=== PATIENT | male | born 1930 | race Caucasian/White ===

== ENCOUNTER 2017-05-18 19:14 | Inpatient (IN) | payer OTHER ==
[~2017-05-18] VITALS: Ht 175.3 cm; Wt 78.6 kg
--- NOTE | ~2017-05-18 | HC ---
[facility] [place] [address] CONSULTATION Name: LILLIE VALDES Room #: 202-P [facility] IN M.R.#: [id number] Admission: 05/18/17 Attend Phys: Yobany Hensley MD Discharge: 05/25/17 Date of : 31 Report #: [id number] THIS REPORT FOR: //name// CC: Yobany BRICE DATE OF SERVICE: 05/24/2017 HISTORY OF PRESENT ILLNESS: The patient is an 86-year-old white male who was originally admitted with shortness of breath, had been diagnosed with pneumonia few weeks ago. He was noted to have sepsis with hyponatremia and also had a right pleural effusion. Pulmonary medicine has been involved and he underwent a thoracentesis on the right on 05/21/2017. He has been monitored regarding atrial fibrillation with rapid ventricular rate. He also was noted to have a delirium/encephalopathy multifactorial with toxic metabolic with his sepsis complicated likely by prior history of ETOH use/abuse. He has been monitored in that regard placed on thiamine and vitamins. The patient has had a considerable decline in his overall functional abilities and we are seeing him in rehabilitation medicine consultation. PAST MEDICAL HISTORY: Includes a prior left total hip replacement about 5 years ago, history of left knee repair, essential tremor. He has had a past cholecystectomy, history of hyperlipidemia. PAST SURGICAL HISTORY: As noted above. HABITS: Alcohol 3 to 6 beers per day, tobacco 7-8 cigarettes per day, smoked apparently for 65 years every day smoker. ALLERGIES: No known drug allergies. SOCIAL HISTORY: Lives with his significant other in a house, 2 steps in. There were 15 inside. There is an involved daughter. He was premorbidly independent, ambulatory without gait aids and was driving. REVIEW OF SYSTEMS: Did not offer any complaints of chest pain. He does have some shortness of breath. Denies that he was on oxygen premorbidly. No abdominal pain. No focal extremity pain complaints. Did not complain of any headache. PHYSICAL EXAMINATION: GENERAL: He is an 86-year-old white male with an essential tremor and some overall tremulousness. VITAL SIGNS: His temperature is 98.4, pulse 70, respirations are 20, blood pressure 150/96. NEUROLOGIC: He is alert. He could tell me the name of the hospital. He knew [address] [address] CONSULTATION Name: LILLIE VALDES Room #: 202-P [facility] IN M.R.#: [id number] Admission: 05/18/17 Attend Phys: Yobany Hensley MD Discharge: 05/25/17 Date of : 31 Report #: [id number] the month, but he could not name the year. Serial 7's were fair. He can follow basic 1 step commands. EXTREMITIES: He has functional range of motion of both upper extremities. Strength is grade 4-/5. DTRs are trace to 1. Lower extremities, no focal calf swelling, functional range of motion with strength grade 3+/5. DTRs are trace to 1. He was max assist sit to stand. Gait was max assist to take a couple of steps to the chair. He has decreased balance with retropulsion. ASSESSMENT: An 86-year-old white male with the following problems: 1. Toxic metabolic encephalopathy/delirium. 2. Sepsis. 3. Pneumonia with pleural effusion, status post thoracentesis 05/21/2017 on the right. He had a prior recent 1600 mL thoracentesis. 4. History of atrial fibrillation with rapid ventricular rate with cardiology involved. 5. ETOH usage/abuse. Being monitored regarding possible alcohol withdrawal. 6. Tobacco abuse. 7. Essential tremor. PLAN: Would anticipate that the patient should be a good acute in-hospital inpatient rehabilitation candidate as he further medically stabilizes. At this point, we will continue to follow along with you regarding his rehab therapy needs. <ELECTRONICALLY SIGNED> By: Fausto Martini MD 05/28/17 1509 0934 1408 Fausto Martini MD /[facility]
--- NOTE | ~2017-05-18 | HC ---
[facility] [place] [address] CONSULTATION Name: LILLIE VALDES Room #: 202-P ADM IN M.R.#: [id number] Admission: 05/18/17 Attend Phys: Yobany Hensley MD Discharge: Date of : 31 Report #: [id number] THIS REPORT FOR: //name// CC: Chun CHEW DATE OF SERVICE: 05/20/2017 REFERRING PROVIDER: Chun Ariza MD. PRIMARY CARE PROVIDER: Dr. Chew. REASON FOR CONSULTATION: Pneumonia and tachypnea. HISTORY OF PRESENT ILLNESS: Our group was asked to see the patient today in consultation while hospitalized at [facility]. A pleasant 86-year-old male with a past pulmonary history significant for tobacco use, had been having some cough productive of green sputum, was seen by his primary care provider, he said about 2-3 weeks ago. He stated his primary care provider told him he did not like his chest x-ray, placed him on an antibiotic for 5 days. The patient noted improvement. Over the last few days, he noted some increased right lower pleuritic chest pain and again had some green sputum, no fevers or chills. No hemoptysis. He presented to the Emergency Department, was noted to have a right lower lobe infiltrate and was started on broad spectrum antimicrobial therapy. The patient developed atrial fibrillation with rapid ventricular response, prompting cardiology consultation overnight, and he was transferred to critical care telemetry. The patient was noted to be tachypneic, and we were asked to evaluate further. The patient notes reasonably comfortable, notes some only minimal improvement since initiating therapy from admission. Currently, he has been on DuoNebs q.6 hours, in addition to antibiotic therapy. The patient does have an active tobacco history. The patient currently lives significant other with normal pulmonary limitations and not on any pulmonary medications. No prior other pulmonary diagnoses. ALLERGIES: None known. PAST MEDICAL HISTORY: 1. Tobacco abuse. 2. History of peripheral vascular disease, status post aneurysmal repair, right lower extremity. 3. Hyperlipidemia. 4. Prior total hip replacement on left. 5. History of cholecystectomy. [facility] [address] [place] [address] CONSULTATION Name: LILLIE VALDES Room #: 202-P ADM IN M.R.#: [id number] Admission: 05/18/17 Attend Phys: Yobany Hensley MD Discharge: Date of : 31 Report #: [id number] OUTPATIENT MEDICATIONS: Include aspirin, ibuprofen, Tylenol. SOCIAL HISTORY: Active smoker for over 60 years. Currently retired. Lives with significant other. With regular daily alcohol consumption. No recent travel. FAMILY HISTORY: Noncontributory due to his advanced age. REVIEW OF SYSTEMS: CONSTITUTIONAL: No fevers, chills, sweats. Denies any change in weight or appetite. ENT: No upper respiratory congestion or dysphagia. CARDIOVASCULAR: Does not know palpitation, was currently in atrial fibrillation. GASTROINTESTINAL: No nausea, vomiting, diarrhea, constipation or abdominal pain. GENITOURINARY: No dysuria, no frequency, hematuria. INTEGUMENT: Denies any rash. MUSCULOSKELETAL: No joint pains or swelling. Some right lower extremity weakness. PHYSICAL EXAMINATION: VITAL SIGNS: He is afebrile, pulse 150 and irregular, respiratory rate 20, blood pressure 129/82, oxygen saturation 96% on 4 liters nasal cannula. GENERAL: This is a pleasant elderly male, does not appear in any distress. HEENT: Clear oropharynx. No thrush. No erythema. NECK: Supple, no lymphadenopathy. LUNGS: Markedly diminished right base, with only occasional wheeze on expiration. HEART: Tachycardic and irregular. No murmurs noted. ABDOMEN: Soft, nontender, no masses, no hepatosplenomegaly. EXTREMITIES: Warm, 2+ pulses, no edema. INTEGUMENT: No rash. LABORATORY DATA: White blood cell count 17,000, hemoglobin 11, hematocrit 32, platelet count 227, 0 band forms. Sodium 135, potassium 3.5, chloride 102, bicarbonate 24, BUN 9, creatinine 0.9, glucose 133. Liver enzymes normal. I do not see a rapid influenza screen. IMPRESSION: 1. Right lower lobe infiltrate, most consistent with community-acquired pneumonia, failing outpatient therapy. Given his lack of improvement, would also be concerned about possible parapneumonic effusion given pleuritic symptoms or underlying malignant process should also be considered if not improving. 2. Atrial fibrillation with rapid ventricular response. 3. Tobacco abuse. [address] [address] CONSULTATION Name: LILLIE VALDES Room #: 202-P ADM IN M.R.#: [id number] Admission: 05/18/17 Attend Phys: Yobany Hensley MD Discharge: Date of : 31 Report #: [id number] 4. Acute hypoxemic respiratory failure. SUGGESTIONS: 1. Follow up chest x-ray, CT scan if the infiltrate not improving or signs of pleural effusion. 2. Change bronchodilators to levalbuterol and ipratropium given his AFib with rapid ventricular response. 3. Add some systemic steroids. 4. Check nasal swab for respiratory viral panel. 5. Sputum and blood cultures are pending. 6. Urinary pneumococcal legionella antigen testing. 7. Additional recommendations to follow. Discussed at length with the patient and son and nursing who are all at bedside during my evaluation. <ELECTRONICALLY SIGNED> By: Ovidio Ryan MD 05/25/17 1726 1519 0534 Ovidio Ryna MD /nt
--- NOTE | ~2017-05-18 | CNG ---
[facility] [place] [address] CYTO-NONGYN REPORT PROCEDURE Name: LILLIE VALDES Room #: 202-P ADM IN M.R.#: [id number] Admission: 05/18/17 Date of : 31 Discharge: Report #: [id number] Path Case #: [id number] CYTOPATHOLOGY REPORT COLLECTION DATE: 05/21/2017 RECEIVED DATE: 05/22/2017 SUBMITTING PHYS: Dr. Ovidio Ryan OTHER PHYS: Dr. Yobany Hensley CLINICAL HISTORY: SOA; sepsis, CAP SPECIMEN(S) RECEIVED: A.Pleural fluid, Right * * * * * * * * * * * * FINAL DIAGNOSIS: A. Pleural fluid, Right: - No malignant cells identified. -Rare mesothelial cells identified in a background of marked acute inflammation. PATHOLOGIST: Tony Vaca M.D. REPORT ELECTRONICALLY SIGNED BY: Tony Vaca M.D. DATE/TIME: 05/23/2017 10:23 * * * * * * * * * * * * GROSS PATHOLOGY: A. Pleural fluid, Right: The specimen is submitted unfixed, labeled "Lillie Valdes". Received by the Cytology Department is 15 mL of cleay yellow fluid. One ThinPrep slide and a formalin fixed cell block were prepared. (mm 05.22.2017) COMMERCIAL ILLUSTRATOR(S): DILAN Chandler([facility]) INITIAL CPT CODE(S): A; 99920, 34954 Professional services performed by [facility] at [facility] [address], [place] [address] Technical services performed by [facility] at [address] [place] [address]., [address], [place] [address]. [facility] [address] [place] [address], [facility] [address] [place] [address] PHONE: [phone] [facility] [address] [place] [address] CYTO-NONGYN REPORT PROCEDURE Name: LILLIE VALDES Room #: 202-P ADM IN M.R.#: [id number] Admission: 05/18/17 Date of : 31 Discharge: Report #: [id number] Path Case #: [id number] DIRECTOR: Edgar Mckeon M.D. * * * END OF REPORT * * *
--- NOTE | ~2017-05-18 | CNG ---
[facility] [place] [address] CYTO-NONGYN REPORT PROCEDURE Name: LILLIE VALDES Room #: 202-P ADM IN M.R.#: [id number] Admission: 05/18/17 Date of : 31 Discharge: Report #: [id number] Path Case #: [id number] CYTOPATHOLOGY REPORT COLLECTION DATE: 05/24/2017 RECEIVED DATE: 05/24/2017 SUBMITTING PHYS: Dr. Yobany Hensley OTHER PHYS: Dr. Ovidio Ryan CLINICAL HISTORY: Sepsis; PNA/CAP SPECIMEN(S) RECEIVED: A.Pleural fluid * * * * * * * * * * * * FINAL DIAGNOSIS: A. Pleural fluid: - No malignant epithelial cells identified. Normal and highly reactive mesothelial cells present amongst background acute and chronic inflammatory cells. PATHOLOGIST: Sheba Schaffer M.D. REPORT ELECTRONICALLY SIGNED BY: Sheba Schaffer M.D. DATE/TIME: 05/25/2017 14:17 * * * * * * * * * * * * GROSS PATHOLOGY: A. Pleural fluid: The specimen is submitted unfixed, labeled "Lillie Valdes". Received by the Cytology Department is 18 mL of cloudy orange fluid. One ThinPrep slide and a formalin fixed cell block were prepared. (lg.) CONSULTING ACTUARY(S): DILAN Milton([facility]) INITIAL CPT CODE(S): A; 24654, 51339 Professional services performed by [facility] at [facility] [address], [place] [address] Technical services performed by [facility] at [address] [place] [address]., [address], [place] [address]. JANY BRICE [facility] [address] [place] [address], [address] [place], [place] [address] [place] [address] [place] [address] CYTO-NONGYN REPORT PROCEDURE Name: LILLIE VALDES Room #: 202-P ADM IN M.R.#: [id number] Admission: 05/18/17 Date of : 31 Discharge: Report #: [id number] Path Case #: [id number] PHONE: [phone] DIRECTOR: Edgar Mckeon M.D. * * * END OF REPORT * * *
--- NOTE | ~2017-05-18 | EKG ---
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 05/20/17 1404 D: 12/1920 20 Kurtis Tadeo MD, FACC /EPI
--- NOTE | ~2017-05-18 | EKG ---
[address] [address] ELECTROCARDIOGRAM REPORT Name: LILLIE VALDES Room #: 207-P ADM IN M.R.#: [id number] Admission: 05/18/17 Attend Phys: Yobany Hensley MD Discharge: Date of : 31 Report #: [id number] THIS REPORT FOR: //name// [facility] Test Date: 2017-05-19 Test Time: 22:37:21 Pat Name: LILLIE VALDES Department: Room: 207 Gender: M Dedicated Regional Driver: jessica : 1930 Requested By: Arely Dao Order Number: [id number] MD: Kurtis Tadeo Measurements Intervals [place] Rate: 128 P: [place]: QRS: 37 QRSD: 86 T: 56 QT: 307 QTc: 448 Interpretive Statements Atrial fibrillation Low voltage, extremity leads No previous ECG available for comparison Electronically Signed On 05-20-2017 14:31:59 POLE PEELING MACHINE OPERATOR by Kurtis Tadeo [email or web address] <ELECTRONICALLY SIGNED> By: Kurtis Tadeo MD, [facility] 05/20/17 1431 2237 2237 Kurtis Tadeo MD, FACC /EPI
--- NOTE | ~2017-05-18 | 2DMMODE ---
[facility] [address] [place] [address] 2 D/M-MODE ECHOCARDIOGRAM Name: LILLIE VALDES Room #: 207-P ADM IN M.R.#: [id number] Admission: 05/18/17 Attend Phys: Yobany Hensley, Discharge: Date of : 31 Date of Service: 05/20/17 1604 Report #: [id number] THIS REPORT FOR: //name// APPROVED REPORT Study performed: 05/20/2017 15:30:10 EXAM: Comprehensive 2D, Doppler, and color-flow Echocardiogram Patient Location: Bedside Room #: 207 Status: on-call BSA: 1.88 HR: 89 bpm BP: 129/82 mmHg Rhythm: Atrial Fibrillation Other Information Study Quality: Adequate/low parsternal window. Indications AFIB 2D Dimensions RVDd: 33.24 mm LVEF(%): 51.77 (>50%) IVSd: 7.92 (7-11mm) LVOT Diam: 21.20 (18-24mm) LVDd: 40.97 mm PWd: 8.67 (7-11mm) LVDs: 30.26 (25-40mm) Aortic Root: 36.51 mm Barbosa's LVEF: 51.77 % Volumes Left Atrial Volume (Systole) Single Plane 4CH: 44.38 mL Single Plane 2CH: 59.62 mL LA ESV Index: 30.00 mL/m2 Aortic Valve AoV Peak Az.: 1.83 m/s AO Peak Gr.: 13.47 mmHg LVOT Max P.41 mmHg LVOT Max V: 1.05 m/s VIJAY Vmax: 2.02 cm2 Mitral Valve MV Decel. Time: 180.64 ms MV E Max Az.: 1.24 m/s [facility] [place] [address] [place] [address] 2 D/M-MODE ECHOCARDIOGRAM Name: LILLIE VALDES Room #: 207-P [facility] IN .R.#: [id number] Admission: 05/18/17 Attend Phys: Yobany Hensley, Discharge: Date of : 31 Date of Service: 05/20/17 1604 Report #: [id number] Pulmonary Valve PV Peak Az.: 1.61 m/s PV Peak Gr.: 10.42 mmHg Tricuspid Valve TR Peak Az.: 3.00 m/s RAP Estimate: 5.00 mmHg TR Peak Gr.: 36.30 mmHg PA Pressure: 41.00 mmHg Left Ventricle The left ventricle is normal size. There is normal LV segmental wall motion. There is normal left ventricular wall thickness. Left ventricular systolic function is normal. LVEF is 55-60%. This study is not technically sufficient to allow evaluation of the LV diastolic function due to atrial fibrillation. Right Ventricle The right ventricle is normal size. The right ventricular systolic function is normal. Atria The left atrium size is normal. The right atrium size is normal. Aortic Valve The Aortic valve is sclerotic. Mild aortic regurgitation. There is no aortic valvular stenosis. Mitral Valve Mitral valve leaflets are thickened. Trace mitral regurgitation. No evidence of mitral valve stenosis. Tricuspid Valve The tricuspid valve is normal in structure. Mild tricuspid regurgitation. Estimated PAP is 40-45mmHg. Pulmonic Valve The pulmonary valve is normal in structure. Mild pulmonic regurgitation. Great Vessels The aortic root is normal in size. Ascending aorta is not well visualized. IVC is normal in size and collapses >50% with inspiration. Pericardium [facility] [address] [place] [address] 2 D/M-MODE ECHOCARDIOGRAM Name: LILLIE VALDES Room #: 207-P ADM IN M.R.#: [id number] Admission: 05/18/17 Attend Phys: Yobany Hensley, Discharge: Date of : 31 Date of Service: 05/20/17 1604 Report #: [id number] There is no pericardial effusion. <Conclusion> The left ventricle is normal size. LVEF is 55-60%. The left atrium size is normal. The right atrium size is normal. The Aortic valve is sclerotic. Mild aortic regurgitation. Mitral valve leaflets are thickened. Trace mitral regurgitation. The tricuspid valve is normal in structure. Mild tricuspid regurgitation. Estimated PAP is 40-45mmHg. The pulmonary valve is normal in structure. Mild pulmonic regurgitation. There is no pericardial effusion. <ELECTRONICALLY SIGNED> By: Chun Ariza MD 05/20/17 1604 1604 160 Chun Ariza MD /INF
--- NOTE | ~2017-05-18 | EKG ---
[address] [address] ELECTROCARDIOGRAM REPORT Name: LILLIE VALDES Room #: 202-P ADM IN M.R.#: [id number] Admission: 05/18/17 Attend Phys: Yobany Hensley MD Discharge: Date of : 31 Report #: [id number] THIS REPORT FOR: //name// [facility] Test Date: 2017-05-22 Test Time: 06:19:25 Pat Name: LILLIE VALDES Department: Room: 202 P Gender: M Glued Wood Tester: : 1930 Requested By: Arely Dao Order Number: [id number] MD: Bradford Fair Measurements Intervals [place] Rate: 68 P: 23 MS: 218 QRS: 7 QRSD: 87 T: 41 QT: 392 QTc: 417 Interpretive Statements Sinus rhythm Borderline prolonged MS interval Anteroseptal infarct, age indeterminate Compared to ECG 05/19/2017 22:37:21 Myocardial infarct finding now present Atrial fibrillation no longer present Electronically Signed On 05-22-2017 15:29:52 SPRING INTERN by Bradford Fair [email or web address] <ELECTRONICALLY SIGNED> By: Bradford Fair MD 05/22/17 1529 0619 Bradford Fair MD /EPI
[2017-05-18 19:16] VITALS: BP 159/85
[2017-05-18] MEDS ORDERED: IBUPROFEN 200200 M1 PO (19:24)
[2017-05-18] MEDS ORDERED: TYLENOL325 MG PO (19:24)
[2017-05-18 19:41] LABS: HEMATOCRIT 33.1 % (42.0-52.0); HEMOGLOBIN 11.3 gm/dL (14.0-18.0); MCH 29.4 pg (26.0-34.0); MCHC 33.9 g/dL (28.0-37.0); MCV 86.7 fL (80.0-100.0); PLATELET COUNT 271 thou/uL (150-400); RBC 3.82 mil/uL (4.50-6.00); RDW 14.7 % (10.5-14.5); WBC 12.4 thou/uL (4.0-11.0)
[2017-05-18 19:48] LABS: CALCIUM 8.9 mg/dL (8.5-10.1); POTASSIUM 3.9 mmol/L (3.5-5.1)
[2017-05-18 19:53] LABS: ALBUMIN 2.8 g/dL (3.4-5.0); DIRECT BILIRUBIN 0.4 mg/dL (<0.1-0.3); TOTAL PROTEIN 7.4 g/dL (6.4-8.2)
[2017-05-18 20:19] LABS: ABSOLUTE NEUTROPHILS 10.9 thou/uL (1.4-8.2); ANISOCYTOSIS 1+; POLYCHROMASIA OCCASIONAL
[2017-05-18 20:31] VITALS: BP 161/93
[2017-05-18 20:58] VITALS: BP 121/75
[2017-05-18 21:06] VITALS: BP 158/65
[2017-05-18] MEDS ORDERED: ASPIR 8181 MG PO (21:17)
[2017-05-18 23:08] VITALS: BP 104/75
[2017-05-19] VITALS (7 sets, daily range): BP systolic 97–124; BP diastolic 49–69
[2017-05-19 05:59] LABS: HEMATOCRIT 28.7 % (42.0-52.0); HEMOGLOBIN 9.9 gm/dL (14.0-18.0); MCHC 34.5 g/dL (28.0-37.0); MCV 86.9 fL (80.0-100.0); RBC 3.31 mil/uL (4.50-6.00); RDW 14.9 % (10.5-14.5); WBC 11.8 thou/uL (4.0-11.0)
[2017-05-19 06:07] LABS: ALBUMIN 2.1 g/dL (3.4-5.0); CALCIUM 8.1 mg/dL (8.5-10.1); CREATININE 0.8 mg/dL (0.7-1.3); POTASSIUM 4.1 mmol/L (3.5-5.1); TOTAL BILIRUBIN 1.1 mg/dL (<0.1-1.0); TOTAL PROTEIN 5.2 g/dL (6.4-8.2)
[2017-05-19 12:13] LABS: URINE BILIRUBIN NEGATIVE (Negative); URINE BLOOD NEGATIVE (Negative); URINE CLARITY CLEAR; URINE COLOR YELLOW; URINE GLUCOSE-RANDOM* NEGATIVE (Negative); URINE KETONES TRACE (Negative); URINE LEUKOCYTES NEGATIVE (Negative); URINE NITRITE NEGATIVE (Negative); URINE PROTEIN (DIPSTICK) NEGATIVE (Negative); URINE UROBILINOGEN 0.2 E.U./dl (0.2-1.0)
[2017-05-20] VITALS (10 sets, daily range): BP systolic 93–129; BP diastolic 51–82
[2017-05-20 08:27] LABS: HEMATOCRIT 31.8 % (42.0-52.0); HEMOGLOBIN 10.7 gm/dL (14.0-18.0); MCH 29.3 pg (26.0-34.0); MCHC 33.5 g/dL (28.0-37.0); MCV 87.4 fL (80.0-100.0); PLATELET COUNT 227 thou/uL (150-400); RBC 3.64 mil/uL (4.50-6.00); RDW 14.6 % (10.5-14.5); WBC 16.8 thou/uL (4.0-11.0)
[2017-05-20 08:45] LABS: CALCIUM 8.1 mg/dL (8.5-10.1); CREATININE 0.9 mg/dL (0.7-1.3); POTASSIUM 3.5 mmol/L (3.5-5.1)
[2017-05-20 11:30] LABS: ABSOLUTE NEUTROPHILS 15.5 thou/uL (1.4-8.2)
[2017-05-20 11:31] LABS: ANISOCYTOSIS 1+
[2017-05-21 03:17] LABS: HEMATOCRIT 31.3 % (42.0-52.0); HEMOGLOBIN 10.3 gm/dL (14.0-18.0); MCH 28.9 pg (26.0-34.0); MCHC 32.9 g/dL (28.0-37.0); MCV 87.7 fL (80.0-100.0); PLATELET COUNT 256 thou/uL (150-400); RBC 3.56 mil/uL (4.50-6.00); RDW 15.1 % (10.5-14.5)
[2017-05-21 03:24] LABS: CALCIUM 8.3 mg/dL (8.5-10.1); CREATININE 0.9 mg/dL (0.7-1.3); POTASSIUM 3.3 mmol/L (3.5-5.1)
[2017-05-21 04:14] VITALS: BP 118/73
[2017-05-21 05:38] LABS: ABSOLUTE NEUTROPHILS 15.8 thou/uL (1.4-8.2)
[2017-05-21 07:50] VITALS: BP 141/71
[2017-05-21 11:30] VITALS: BP 137/65
[2017-05-21 11:57] LABS: PROTIME 10.5 Seconds (9.3-11.4)
[2017-05-21 14:28] LABS: BF NUCLEATED CELLS 2410; BF RBC 1342
[2017-05-21 14:31] LABS: COLOR YELLOW; TOTAL VOLUME 65 mL
[2017-05-21 14:32] LABS: CLARITY CLOUDY
[2017-05-21 15:10] LABS: BF NEUTROPHILS 72; SOURCE R CHEST
[2017-05-21 15:11] LABS: BF MACROPHAGE 28
[2017-05-21 15:45] VITALS: BP 131/61
[2017-05-21 19:33] VITALS: BP 125/56
[2017-05-22 03:22] LABS: HEMATOCRIT 31.8 % (42.0-52.0); HEMOGLOBIN 10.6 gm/dL (14.0-18.0); MCH 28.9 pg (26.0-34.0); MCHC 33.3 g/dL (28.0-37.0); MCV 86.8 fL (80.0-100.0); PLATELET COUNT 323 thou/uL (150-400); RBC 3.66 mil/uL (4.50-6.00); RDW 14.7 % (10.5-14.5); WBC 20.9 thou/uL (4.0-11.0)
[2017-05-22 03:29] LABS: CALCIUM 8.9 mg/dL (8.5-10.1); CREATININE 1.2 mg/dL (0.7-1.3); POTASSIUM 3.2 mmol/L (3.5-5.1)
[2017-05-22 03:50] LABS: ALBUMIN 2.2 g/dL (3.4-5.0); CALCIUM 8.7 mg/dL (8.5-10.1); CREATININE 1.2 mg/dL (0.7-1.3); MAGNESIUM 2.1 mg/dL (1.8-2.4); PHOSPHORUS 3.2 mg/dL (2.5-4.9); POTASSIUM 3.3 mmol/L (3.5-5.1); TOTAL BILIRUBIN 0.5 mg/dL (<0.1-1.0); TOTAL PROTEIN 6.1 g/dL (6.4-8.2)
[2017-05-22 04:02] VITALS: BP 136/83
[2017-05-22 04:22] LABS: FOLIC ACID 15.9 ng/mL (8.6-58.9)
[2017-05-22 04:55] LABS: ABSOLUTE NEUTROPHILS 18.8 thou/uL (1.4-8.2); ANISOCYTOSIS SLIGHT; HYPOCHROMASIA SLIGHT; LARGE PLATELETS OCCASIONAL
[2017-05-22 11:13] VITALS: BP 123/68
[2017-05-22 15:51] VITALS: BP 132/71
[2017-05-22 19:04] VITALS: BP 132/79
[2017-05-23 03:15] LABS: HEMOGLOBIN 9.9 gm/dL (14.0-18.0); MCHC 32.9 g/dL (28.0-37.0); MCV 87.9 fL (80.0-100.0); PLATELET COUNT 294 thou/uL (150-400); RBC 3.41 mil/uL (4.50-6.00); RDW 15.4 % (10.5-14.5); WBC 13.5 thou/uL (4.0-11.0)
[2017-05-23 03:18] VITALS: BP 132/67
[2017-05-23 03:29] LABS: CALCIUM 8.8 mg/dL (8.5-10.1); CREATININE 1.1 mg/dL (0.7-1.3); POTASSIUM 3.3 mmol/L (3.5-5.1)
[2017-05-23 06:31] LABS: ABSOLUTE NEUTROPHILS 12.7 thou/uL (1.4-8.2); ANISOCYTOSIS SLIGHT
[2017-05-23 07:11] LABS: BODY FLUID ALBUMIN 1.5 g/dL (()); BODY FLUID AMYLASE 12 U/L (()); BODY FLUID GLUCOSE 138 mg/dL (()); BODY FLUID LDH 517 IU/L (()); BODY FLUID PROTEIN 3.3 g/dL (())
[2017-05-23 07:55] VITALS: BP 109/62
[2017-05-23 11:46] VITALS: BP 138/65
[2017-05-23 15:44] VITALS: BP 135/70
[2017-05-23 19:25] VITALS: BP 134/78
[2017-05-24 04:19] VITALS: BP 142/65
[2017-05-24 07:15] VITALS: BP 150/96
[2017-05-24 10:25] LABS: SOURCE CHEST
[2017-05-24 12:03] VITALS: BP 168/90
[2017-05-24 12:15] LABS: CLARITY CLOUDY; COLOR LIGHT AMBER; SOURCE CHEST FLUID; TOTAL VOLUME 60 mL
[2017-05-24 12:36] LABS: BF NUCLEATED CELLS 1525; BF RBC 7263
[2017-05-24 13:37] LABS: BF NEUTROPHILS 72
[2017-05-24 15:40] VITALS: BP 158/92
[2017-05-24 20:25] VITALS: BP 148/84
[2017-05-24 23:09] LABS: ADENOVIRUS Negative (Negative); INFLUENZA A Negative (Negative); INFLUENZA B Negative (Negative); METAPNEUMOVIRUS Negative (Negative); PARAINFLUENZA 1 Negative (Negative); PARAINFLUENZA 2 Negative (Negative); PARAINFLUENZA 3 Negative (Negative); RHINOVIRUS Negative (Negative); RSV A Negative (Negative); RSV B Negative (Negative)
[2017-05-25 02:53] LABS: ABSOLUTE NEUTROPHILS 13.6 thou/uL (1.4-8.2); BASOPHILS 0.3 % (0.0-2.0); HEMATOCRIT 29.6 % (42.0-52.0); HEMOGLOBIN 9.6 gm/dL (14.0-18.0); MCH 28.7 pg (26.0-34.0); MCHC 32.5 g/dL (28.0-37.0); MCV 88.2 fL (80.0-100.0); MONOCYTES 5.2 % (1.0-8.0); PLATELET COUNT 259 thou/uL (150-400); POLYS 90.5 % (36.0-66.0); RBC 3.35 mil/uL (4.50-6.00); RDW 15.4 % (10.5-14.5)
[2017-05-25 03:01] LABS: CALCIUM 8.7 mg/dL (8.5-10.1); POTASSIUM 4.4 mmol/L (3.5-5.1)
[2017-05-25 08:00] VITALS: BP 163/92
[2017-05-25 08:42] LABS: SOURCE CHEST
[2017-05-25 11:10] LABS: BODY FLUID ALBUMIN 0.8 g/dL (()); BODY FLUID AMYLASE 6 U/L (()); BODY FLUID GLUCOSE 150 mg/dL (()); BODY FLUID LDH 437 IU/L (()); BODY FLUID PROTEIN 2.2 g/dL (())
[2017-05-25] MEDS ORDERED: IPRATROPIU0.2 MG/1 M INH (11:35)
[2017-05-25] MEDS ORDERED: LEVALBUTER0.63 MG/3 INH (11:35)
[2017-05-25] MEDS ORDERED: AUGMENTIN 500-1 EACH PO (11:35)
[2017-05-25] MEDS ORDERED: PACERONE 200 M200 M1 PO (11:36)
[2017-05-25] MEDS ORDERED: CARDIZEM CD 18180 M3 PO (11:36)
[2017-05-25] MEDS ORDERED: ENOXAPARIN80 MG/0.1 SUBQ (11:36)
[2017-05-25] MEDS ORDERED: NICOTINE TRANSD14 M1 TRANSDERM (11:36)
[2017-05-25 16:00] VITALS: BP 151/82
== END 2017-05-25 17:35 | DRG 871 ==
LOC: ER 19:14 → EROBS 20:14 → 2N 20:14 → 4S 20:54 → 2N 05-19 23:23
PROVIDERS: Family Medicine; Internal Medicine Pulmonary Disease; Nurse Practitioner; Nurse Practitioner Acute Care
PROC: 0W993ZZ Drainage of Right Pleural Cavity, Percutaneous Approach (ICD-10-PCS; principal; 2017-05-21)
PROC: 0W993ZZ Drainage of Right Pleural Cavity, Percutaneous Approach (ICD-10-PCS; 2017-05-24)
DX: A41.9 Sepsis, unspecified organism (principal); J96.01 Acute respiratory failure with hypoxia; G92 Toxic encephalopathy; J18.1 Lobar pneumonia, unspecified organism; J90 Pleural effusion, not elsewhere classified; E87.1 Hypo-osmolality and hyponatremia; E78.5 Hyperlipidemia, unspecified; Z96.642 Presence of left artificial hip joint; E87.6 Hypokalemia; I73.9 Peripheral vascular disease, unspecified; F17.210 Nicotine dependence, cigarettes, uncomplicated; I48.0 Paroxysmal atrial fibrillation; R41.0 Disorientation, unspecified; G25.0 Essential tremor; Z79.899 Other long term (current) drug therapy; Z79.82 Long term (current) use of aspirin; Z72.89 Other problems related to lifestyle; Z90.49 Acquired absence of other specified parts of digestive tract; Z79.01 Long term (current) use of anticoagulants; Z80.52 Family history of malignant neoplasm of bladder
CPT/HCPCS: 10081; 10100

== ENCOUNTER 2017-05-25 12:05 | Inpatient (IN) | payer OTHER ==
[~2017-05-25] VITALS: Ht 175.3 cm; Wt 76.2 kg
--- NOTE | ~2017-05-25 | H ---
[facility] [place] [address] HISTORY AND PHYSICAL Name: LILLIE VALDES Room #: 511-P ADM IN M.R.#: [id number] Admission: 05/25/17 Attend Phys: Fausto Martini MD Discharge: Date of : 31 Report #: [id number] THIS REPORT FOR: //name// CC: Fausto BRICE DATE OF SERVICE: 05/25/2017 HISTORY OF PRESENT ILLNESS: The patient is an 86-year-old white male who was originally admitted to [facility] with increased shortness of breath. He was diagnosed with pneumonia a few weeks prior. He was noted to have sepsis upon his admission with hyponatremia and also had a right pleural effusion. Pulmonary Medicine has been involved and he underwent a thoracentesis on the right on 05/21/2017. He has been monitored regarding atrial fibrillation with rapid ventricular rate. He was also noted to have encephalopathy with delirium, multifactorial with toxic metabolic with his sepsis, complicated likely by a prior history of alcohol use and abuse. He was monitored in this regard and placed on thiamine and vitamins. He was noted to have a considerable decline in his overall function and has been admitted for an acute in-hospital inpatient rehabilitation stay. PAST MEDICAL HISTORY: Includes prior left total hip replacement approximately 5 years ago, history of a left knee repair, essential tremor. He has had a past cholecystectomy and history of hyperlipidemia. PAST SURGICAL HISTORY: As noted above. HABITS: Alcohol 3 to 6 beers per day, tobacco 7-8 cigarettes per day, smoked approximately for 65 years every day smoker. ALLERGIES: No known drug allergies. SOCIAL HISTORY: Lives with his significant other in a house, 2 steps in. There were 15 inside. There is an involved daughter as well as an involved son. He was premorbidly independent, ambulatory without gait aids and was driving. REVIEW OF SYSTEMS: Did not offer any complaints of chest pain. He has had some shortness of breath. Denies that he was on any oxygen premorbidly. No abdominal pain. No focal extremity pain complaints. Did not offer any complaints as far as any bowel or bladder changes. PHYSICAL EXAMINATION: GENERAL: An 86-year-old white male who does have an essential tremor with some overall tremulousness. VITAL SIGNS: Last recorded temperature 98.1, pulse 73, respirations are 22, blood pressure 149/76. [facility] [address] [place] [address] HISTORY AND PHYSICAL Name: LILLIE VALDES Room #: 511-P [facility] IN M.R.#: [id number] Admission: 05/25/17 Attend Phys: Fausto Martini MD Discharge: Date of : 31 Report #: [id number] NEUROLOGIC: He is alert, does follow basic 1 step commands, somewhat tangential, plans to defer to his son. He is pleasant. He knee which hospital he was in. He has difficulty with some higher level problem solving questions. Serial 7s were fair. HEENT: Appeared to be benign. He is on nasal prong O2. CHEST: Some decreased breath sounds throughout. CARDIAC: Sounded regular rate and rhythm. ABDOMEN: Bowel sounds positive, nontender. GENITOURINARY AND RECTAL: Deferred. EXTREMITIES: Functional range of motion of both upper extremities. Strength is grade 4-/5. DTRs are trace to 1. Lower extremities, no focal calf swelling, functional range of motion with strength grade 3+/5. DTRs are trace to 1. He was max assist sit to stand. Gait was max assist to take a couple of steps. He does have some decreased balance and has had some problems with some retropulsion. ASSESSMENT: An 86-year-old white male with the following problems: 1. Toxic metabolic encephalopathy. 2. Sepsis. 3. Pneumonia with pleural effusion, status post thoracentesis 05/21/2017. He was noted to have a prior recent 1600 mL thoracentesis. 4. History of atrial fibrillation with rapid ventricular rate with Cardiology involved. 5. ETOH usage/abuse. 6. Tobacco abuse. 7. Essential tremor. PLAN: The patient is admitted for acute in-hospital inpatient rehabilitation. From a post-admission physician evaluation perspective, there are no relevant changes since the preadmission screening. Please see the above review of prior and current medical and functional conditions and comorbidities. Please see the patient's previous and current functional status. As far as risk of complications, the patient has multiple medical comorbidities as noted above. Initial plan of care involves the interdisciplinary acute inpatient rehabilitation program with the goal of maximizing his functional independence, so that hopefully he can return back to his prior living situation. Measurable functional goals would be for him to maximize his functional independence with mobility and gait and cognition and ADLs. He did not utilize any gait aids premorbidly. Prognosis is reasonably good with estimated length of stay probably at least 10 days to 2 weeks and potentially longer if warranted. Potential barriers would include his multiple medical comorbidities and decreased functional status. The patient meets diagnostic criteria for an acute in-hospital inpatient rehabilitation stay. He meets medical necessity criteria and we will have the [facility] [address] [place] [address] HISTORY AND PHYSICAL Name: LILLIE VALDES Room #: 511-P ADM IN M.R.#: [id number] Admission: 05/25/17 Attend Phys: Fausto Martini MD Discharge: Date of : 31 Report #: [id number] energy sales consultant physicians continue to follow. He does have the tolerance for therapies and has appropriate discharge goals back to the home setting. <ELECTRONICALLY SIGNED> By: Fausto Martini MD 05/28/17 1509 2053 2234 Fausto Martini MD /[facility]
--- NOTE | ~2017-05-25 | CNG ---
[facility] [place] [address] CYTO-NONGYN REPORT PROCEDURE Name: LILLIE VALDES Room #: 509-P ADM IN M.R.#: [id number] Admission: 05/25/17 Date of : 31 Discharge: Report #: [id number] Path Case #: [id number] CYTOPATHOLOGY REPORT COLLECTION DATE: 06/01/2017 RECEIVED DATE: 06/01/2017 SUBMITTING PHYS: Dr. Fausto Martini OTHER PHYS: Dr. Fausto Martini CLINICAL HISTORY: Toxic metabolic encephalopathy delirum, sepsis SPECIMEN(S) RECEIVED: A.Pleural fluid * * * * * * * * * * * * FINAL DIAGNOSIS: A. Pleural fluid: - No malignant cells identified. Rare mesothelial cells, and abundant acute and chronic inflammatory cells. PATHOLOGIST: Tony Vaca M.D. REPORT ELECTRONICALLY SIGNED BY: Tony Vaca M.D. DATE/TIME: 06/04/2017 08:56 * * * * * * * * * * * * GROSS PATHOLOGY: A. Pleural fluid: The specimen is submitted unfixed, labeled "Irineo Cornell". Received by the Cytology Department is 20 mL of cloudy red fluid. One ThinPrep slide and a formalin fixed cell block were prepared. (mm 06.01.2017) COMPUTER ENGINEERING TECHNOLOGIST(S): DILAN Solis([facility]) INITIAL CPT CODE(S): A; 08765, 66863 Professional services performed by [facility] at [facility] [address] [facility] , [place] [address] Technical services performed by [facility] at [address] [place] [address]., [address], [place] [address]. [facility] [address] [place] [address], [facility] [address] [place] [address] PHONE: [phone] [facility] [address] [place] [address] CYTO-NONGYN REPORT PROCEDURE Name: LILLIE VALDES Room #: 509-P ADM IN M.R.#: [id number] Admission: 05/25/17 Date of : 31 Discharge: Report #: [id number] Path Case #: [id number] DIRECTOR: Edgar Mckeon M.D. * * * END OF REPORT * * *
--- NOTE | ~2017-05-25 | PLAN ---
[facility] [place] [address] REHAB UNIT PLAN OF CARE Name: LILLIE VALDES Room #: 511-P ADM IN M.R.#: [id number] Admission: 05/25/17 Attend Phys: Fausto Martini MD Discharge: Date of : 31 Report #: [id number] THIS REPORT FOR: //name// CC: Fausto BRICE DATE OF SERVICE: 05/28/2017 PROGRESS NOTE/OVERALL PLAN OF CARE The patient is seen back today in followup. He is in no distress. Last recorded temperature is 36.7, pulse 78, respirations 18, blood pressure 157/78. The patient is alert. Transfers are min assist. Gait is min assist, 250 feet with a front-wheeled walker. In occupational therapy, lower body dressing is moderate assistance, upper body dressing is min assist. In speech therapy, he has mild comprehensive deficits. ASSESSMENT: 1. Toxic metabolic encephalopathy. 2. Sepsis. 3. Pneumonia with pleural effusion, status post thoracentesis 05/21/2017. He had a prior recent 1600 mL thoracentesis. 4. History of atrial fibrillation with rapid ventricular rate. 5. ETOH usage with abuse. 6. Tobacco abuse. 7. Essential tremor. PLAN: The overall plan of care is based on the preadmission screen, post-admission physician evaluation and information garnered from therapy assessments. 1. Estimated length of stay is probably at least 10 days to 2 weeks pending progress. 2. Medical prognosis is reasonably good. 3. Anticipated interventions includes the interdisciplinary acute inpatient rehabilitation program with goal of maximizing the patient's functional independence, so that he can hopefully return back to his prior living situation. We will have PT, OT and speech, rehabilitation nursing assisting regarding medication management, skin care prophylaxis, bowel and bladder issues and nursing education. To have the multiple sephora operations consultant physicians continue to follow along as well. 4. Anticipated functional outcomes would be for the patient to become modified independent with transfers, mobility issues. Ideally without gait aids, which he was not utilizing any gait aids premorbidly. We will need to see how he does, however. Also, the goal would be to improve his overall functional comprehension with his encephalopathy. 5. Discharge destination would be to return back to the home setting with his [facility] [address] [place] [address] REHAB UNIT PLAN OF CARE Name: LILLIE VALDES Room #: 511-P [facility] IN [facility].#: [id number] Admission: 05/25/17 Attend Phys: Fausto Martini MD Discharge: Date of : 31 Report #: [id number] significant others as noted above. 6. Expected therapy by discipline includes PT, OT and speech 1 hour per day each five days a week throughout the duration of the acute inpatient rehabilitation stay. He is currently on 2 L nasal cannula. <ELECTRONICALLY SIGNED> By: Fausto Martini MD 05/28/17 1509 0921 [facility] Fausto Martini MD /VICKEY
--- NOTE | ~2017-05-25 | HC ---
[facility] [place] [address] CONSULTATION Name: LILLIE VALDES Room #: 509-P [facility] IN M.R.#: [id number] Admission: 05/25/17 Attend Phys: Fausto Martini MD Discharge: Date of : 31 Report #: [id number] THIS REPORT FOR: //name// CC: Fausto BRICE DATE OF SERVICE: 05/27/2017 ATTENDING PHYSICIAN: Fausto Martini M.D. BOTTOM STAINER: Jean-Claude Orr, PhD CLINICAL PRESENTATION: The patient is an 86-year-old male admitted to the rehabilitation unit at [facility] for comprehensive inpatient rehabilitation program to improve functional mobility and activities of daily living and self-care secondary to impairment from a toxic metabolic encephalopathy. He was reported to have been living independently with a female flower maker when he experienced acute confusion and disorientation. He was subsequently evaluated and diagnosed with a multifactorial encephalopathy with toxic metabolic and sepsis. A prior history of alcohol abuse is also reported. The assessment on admission also includes pneumonia with pleural effusion, status post thoracentesis, history of atrial fibrillation with rapid ventricular rate, alcohol abuse, tobacco abuse, and essential tremor. A complete description of his medical condition and history along with medications can be found in his medical record. Neuropsychological consultation was requested to provide assistance in the assessment of cognitive and emotional status and to provide recommendations and services. Prior to this most recent medical event, he was living independently in his own home. The patient is a high school graduate. 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 He is with two children. As indicated, he was driving and managing instrumental activities of daily living independently prior to his admission. The patient was drinking excessively prior to his admission approximately 6 pack a day. TECHNIQUES UTILIZED: Clinical interview, review of medical records, staff consultation and behavioral observation, mini mental status exam 2 standard version, clock drawing and category and verbal fluency assessment. EXAMINATION FINDINGS: The patient was alert and cooperative with the assessment. He accurately described his initial hospitalization. He does not present with aphasia. His thoughts are logical and goal oriented. There is no evidence of thought disorder. He does not report auditory or visual hallucinations. He describes his symptoms to include sleep, appetite [facility] [address] [place] [address] CONSULTATION Name: LILLIE VALDES Room #: 509-P ADM IN M.R.#: [id number] Admission: 05/25/17 Attend Phys: Fausto Martini MD Discharge: Date of : 31 Report #: [id number] disturbance and tiredness and fatigue. Decreased endurance is reported. He does not report subjective anxiety, depression or difficulty with cognition. His daughter reports his condition is much improved in comparison to his initial hospitalization. His performance on the MMSE 2 brief version is extremely low with a T score at 23 and a raw score of 11. He was 3/3 for initial registration, 3/5 for orientation to time, 5/[address] and 0/3 for immediate recall of 3 items after a brief time delay and distraction. His performance improved to within normal limits on the MMSE 2 standard version to a raw score 25-30, which is a T score of 44. He was 5/5 for serial 7s, 2/2 for naming, 1/1 for being able to follow a single command and being able to follow written command. Comprehension was within normal limits. He could accurately copy a simple geometric design and draw and write a sentence. Clock drawing was within normal limits. Category fluency suggests mild to moderate impairment with a raw score of 23, T score 33 and percentile rank of 4. This type of presentation suggests lingering neurocognitive deficits. Impairment is noted with immediate memory and thought organization and higher level executive functioning. DIAGNOSTIC IMPRESSION: Neurocognitive disorder, unspecified, without behavior disorder - extent to be determined, likely in a moderate range. Alcohol use disorder - persistent. RECOMMENDATIONS: The patient will need assistance in the management of medication, nutrition and finances at this time. Alcohol use should be discontinued. Family education will be of benefit for increasing the level of supervision and structure to maintain safety. During his rehabilitation program, the provision of educational information regarding areas of deficit and the use of a memory and orientation notebook to assist in compensation for deficits in cognition. A followup neuropsychological evaluation in approximately 2 months following discharge may be of benefit [place] [address] CONSULTATION Name: LILLIE VALDES Room #: 509-P [facility] IN M.R.#: [id number] Admission: 05/25/17 Attend Phys: Fausto Martini MD Discharge: Date of : 31 Report #: [id number] Thank you very much for allowing me to provide the consultation on this patient. <ELECTRONICALLY SIGNED> By: Jean-Claude Orr, PhD 06/04/17 1813 1414 2235 Jean-Claude Orr, PhD /nt
--- NOTE | ~2017-05-25 | D ---
[facility] [place] [address] DISCHARGE SUMMARY Name: LILLIE VALDES Room #: 509-P [facility] IN M.R.#: [id number] Admission: 05/25/17 Attend Phys: Fausto Martini MD Discharge: 06/05/17 Date of : 31 Report #: [id number] THIS REPORT FOR: //name// CC: Fausto BRICE DATE OF SERVICE: 06/05/2017 The patient is a 76-year-old white male, who was admitted to [facility] originally with increased shortness of breath. He was diagnosed with pneumonia, was noted to have hyponatremia. He underwent thoracentesis on the right on 05/21/2017. He was monitored regarding atrial fibrillation. He is also noted to have encephalopathy with delirium, multifactorial with toxic metabolic with the sepsis complicated likely by a prior history of alcohol use and abuse. He was noted to have significant functional decline and was admitted for acute in-hospital inpatient rehabilitation. Please see the full admission note dictation. HOSPITAL COURSE: The patient was involved in the inpatient rehabilitation program. He did progress as far as his therapies to the point of ambulating 250 feet standby assistance. Transfers are standby assistance. Lower extremity dressing with standby. He still has [id number] comprehensive deficits with his encephalopathy. He was seen by Dr. Jenaro Orr, in Neuropsychology who thought that he had a neurocognitive disorder, unspecified, likely in the moderate range. While on the rehab das, he was followed by Pulmonary Medicine. He was noted to have an exudate of right pleural effusion and has had 3 thoracenteses, nondiagnostic with a recurrent left effusion. With this, the plan was for him to be discharged from acute rehab back to the hospital for further evaluation and diuresis, thoracentesis, and reassessment. DISCHARGE DIAGNOSES: Include: 1. Toxic metabolic encephalopathy. 2. Pneumonia with recurrent pleural effusions. 3. Sepsis. 4. History of atrial fibrillation with rapid ventricular rate. 5. EtOH usage with abuse. 6. Tobacco abuse. 7. Essential tremor. DISCHARGE MEDICATIONS: Per the accepting service along with the discharge activity level. <ELECTRONICALLY SIGNED> By: Fausto Martini MD 06/08/17 1306 1559 1643 Fausto Martini MD /PMT
[~2017-05-25 12:05] MED LIST: ASPIR 8181 MG PO; AUGMENTIN 500-1 EACH PO; CARDIZEM CD 18180 M3 PO; ENOXAPARIN80 MG/0.1 SUBQ; IBUPROFEN 200200 M1 PO; IPRATROPIU0.2 MG/1 M INH; LEVALBUTER0.63 MG/3 INH; NICOTINE TRANSD14 M1 TRANSDERM; PACERONE 200 M200 M1 PO; TYLENOL325 MG PO
[2017-05-25 17:45] VITALS: BP 168/87
[2017-05-26 03:11] LABS: HEMATOCRIT 29.9 % (42.0-52.0); HEMOGLOBIN 9.8 gm/dL (14.0-18.0); MCH 28.5 pg (26.0-34.0); MCHC 32.8 g/dL (28.0-37.0); RBC 3.44 mil/uL (4.50-6.00); WBC 13.5 thou/uL (4.0-11.0)
[2017-05-26 03:19] LABS: CALCIUM 8.5 mg/dL (8.5-10.1); CREATININE 0.9 mg/dL (0.7-1.3)
[2017-05-26 10:26] VITALS: BP 152/89
[2017-05-26 19:28] VITALS: BP 147/87
[2017-05-27 08:15] VITALS: BP 142/78
[2017-05-27 20:30] VITALS: BP 157/78
[2017-05-28 08:30] VITALS: BP 144/82
[2017-05-28 19:53] VITALS: BP 132/70
[2017-05-29 04:18] LABS: ABSOLUTE NEUTROPHILS 9.8 thou/uL (1.4-8.2); BASOPHILS 0.1 % (0.0-2.0); EOSINOPHILS 1.5 % (0.0-3.0); HEMATOCRIT 29.1 % (42.0-52.0); HEMOGLOBIN 10.1 gm/dL (14.0-18.0); LYMPHOCYTES 12.3 % (24.0-44.0); MCH 29.2 pg (26.0-34.0); MCHC 34.7 g/dL (28.0-37.0); MCV 84.2 fL (80.0-100.0); MONOCYTES 7.5 % (1.0-8.0); PLATELET COUNT 270 thou/uL (150-400); POLYS 78.6 % (36.0-66.0); RBC 3.46 mil/uL (4.50-6.00); RDW 15.5 % (10.5-14.5); WBC 12.5 thou/uL (4.0-11.0)
[2017-05-29 04:30] LABS: CREATININE 0.8 mg/dL (0.7-1.3); MAGNESIUM 1.9 mg/dL (1.8-2.4); POTASSIUM 3.4 mmol/L (3.5-5.1)
[2017-05-29 09:00] VITALS: BP 145/72
[2017-05-29 20:09] VITALS: BP 127/65
[2017-05-30 07:42] VITALS: BP 125/66
[2017-05-30 21:05] VITALS: BP 131/63
[2017-05-31 08:20] VITALS: BP 127/87
[2017-05-31 20:17] VITALS: BP 141/77
[2017-06-01 06:25] LABS: ABSOLUTE NEUTROPHILS 9.2 thou/uL (1.4-8.2); BASOPHILS 0.4 % (0.0-2.0); EOSINOPHILS 1.2 % (0.0-3.0); HEMATOCRIT 27.3 % (42.0-52.0); HEMOGLOBIN 9.1 gm/dL (14.0-18.0); LYMPHOCYTES 10.2 % (24.0-44.0); MCH 28.7 pg (26.0-34.0); MCHC 33.2 g/dL (28.0-37.0); MCV 86.3 fL (80.0-100.0); MONOCYTES 8.7 % (1.0-8.0); PLATELET COUNT 236 thou/uL (150-400); POLYS 79.5 % (36.0-66.0); RBC 3.16 mil/uL (4.50-6.00); RDW 16.1 % (10.5-14.5); WBC 11.6 thou/uL (4.0-11.0)
[2017-06-01 06:39] LABS: MAGNESIUM 2.1 mg/dL (1.8-2.4); POTASSIUM 3.9 mmol/L (3.5-5.1)
[2017-06-01 09:05] VITALS: BP 122/67
[2017-06-01 14:37] LABS: SOURCE CHEST
[2017-06-01 14:38] LABS: CLARITY CLOUDY; COLOR RED; TOTAL VOLUME 60 mL
[2017-06-01 15:18] LABS: BF NUCLEATED CELLS 609; BF RBC 69812
[2017-06-01 16:56] LABS: BF MACROPHAGE 3; BF NEUTROPHILS 84
[2017-06-01 21:04] VITALS: BP 125/65
[2017-06-02 08:15] VITALS: BP 140/65
[2017-06-02 11:12] LABS: SOURCE CHEST
[2017-06-02 20:11] VITALS: BP 136/68
[2017-06-03 06:11] LABS: BODY FLUID ALBUMIN 1.6 g/dL (()); BODY FLUID AMYLASE 11 U/L (()); BODY FLUID GLUCOSE 136 mg/dL (()); BODY FLUID LDH 222 IU/L (()); BODY FLUID PROTEIN 3.1 g/dL (())
[2017-06-03 10:03] VITALS: BP 126/59
[2017-06-03 20:03] VITALS: BP 128/57
[2017-06-04 06:05] LABS: HEMATOCRIT 26.8 % (42.0-52.0); MCH 28.8 pg (26.0-34.0); MCHC 33.7 g/dL (28.0-37.0); MCV 85.4 fL (80.0-100.0); RBC 3.13 mil/uL (4.50-6.00); RDW 16.3 % (10.5-14.5); WBC 8.9 thou/uL (4.0-11.0)
[2017-06-04 06:22] LABS: CALCIUM 7.7 mg/dL (8.5-10.1); CREATININE 0.9 mg/dL (0.7-1.3); MAGNESIUM 1.9 mg/dL (1.8-2.4); POTASSIUM 3.5 mmol/L (3.5-5.1)
[2017-06-04 08:54] VITALS: BP 112/54
[2017-06-04 17:12] VITALS: BP 112/54
[2017-06-04 20:49] VITALS: BP 132/66
[2017-06-05 08:00] VITALS: BP 139/71
[2017-06-05] MEDS ORDERED: PANTOPRAZOLE SO40 M1 PO (11:01)
[2017-06-05] MEDS ORDERED: SENNA8.6 MG PO (11:01)
[2017-06-05] MEDS ORDERED: MIRALAX17 GM PO (11:01)
[2017-06-05] MEDS ORDERED: COLACE 100 MG100 MG PO (11:01)
[2017-06-05] MEDS ORDERED: BISAC-EVAC10 MG RECTAL (11:01)
[2017-06-05 11:37] LABS: CALCIUM 8.2 mg/dL (8.5-10.1); POTASSIUM 4.1 mmol/L (3.5-5.1)
== END 2017-06-05 15:25 | disposition short-term general hospital (02) | DRG 91 ==
LOC: ENTRNSPT 06-05 15:06 → EDTRNSPTSTS 06-05 15:10
PROVIDERS: Internal Medicine Pulmonary Disease; Nurse Practitioner; Physical Medicine & Rehabilitation; Registered Nurse
PROC: 0W993ZZ Drainage of Right Pleural Cavity, Percutaneous Approach (ICD-10-PCS; principal; 2017-06-01)
DX: G92 Toxic encephalopathy (principal); J18.9 Pneumonia, unspecified organism; J90 Pleural effusion, not elsewhere classified; E87.1 Hypo-osmolality and hyponatremia; F10.10 Alcohol abuse, uncomplicated; G25.0 Essential tremor; R41.9 Unspecified symptoms and signs involving cognitive functions and awareness; E78.5 Hyperlipidemia, unspecified; F17.210 Nicotine dependence, cigarettes, uncomplicated; E87.6 Hypokalemia; R41.0 Disorientation, unspecified; J98.01 Acute bronchospasm; R53.81 Other malaise; I48.0 Paroxysmal atrial fibrillation; Z96.642 Presence of left artificial hip joint; Z71.6 Tobacco abuse counseling; Z90.49 Acquired absence of other specified parts of digestive tract; Z79.899 Other long term (current) drug therapy
CPT/HCPCS: 10112

== ENCOUNTER 2017-06-05 12:06 | Inpatient (IN) | payer OTHER ==
[~2017-06-05] VITALS: Ht 172.7 cm; Wt 67.5 kg
--- NOTE | ~2017-06-05 | S ---
[facility] [place] [address] SURGICAL PATH RPT PROCEDURE Name: LILLIE VALDES Room #: 215-P ADM IN M.R.#: [id number] Admission: 06/05/17 Date of : 31 Discharge: Report #: [id number] Path Case #: [id number] PATHOLOGY REPORT COLLECTION DATE: 06/07/2017 RECEIVED DATE: 06/08/2017 SUBMITTING PHYS: Dr. Tony Cary OTHER PHYS: Dr. Ryan Campos SPECIMEN(S) RECEIVED: A.Right pleural exudate * * * * * * * * * * * * FINAL DIAGNOSIS: "Right pleural exudate", decortication / resection: - Pleura with acute and chronic inflammation, necrosis, granulation tissue, and reactive mesothelial hyperplasia, consistent with empyema / pleural exudate. (CLW:ronnie; 06/11/2017) PATHOLOGIST: Sheba Schaffer M.D. REPORT ELECTRONICALLY SIGNED BY: Sheba Schaffer M.D. DATE/TIME: 06/11/2017 14:27 * * * * * * * * * * * * GROSS PATHOLOGY: The specimen is received in formalin labeled "Lillie Valdes right pleural exudate". Received are multiple segments of pink-moyer rubbery tissue admixed with moyer-velez exudate measuring 12.5 x 9.9 x 3.2 cm in aggregate dimensions. The specimen is submitted representatively in cassette A1. (CAA; 06/08/2017) CLINICAL HISTORY: Right pleural effusion INITIAL CPT CODE(S): A; 05598 Professional services performed by [facility] at [facility] [address] [facility] [address], [place] [address] Technical services performed by [facility] at [address] [place] [address] [id number] [facility] [address] [place] [address] SURGICAL PATH RPT PROCEDURE Name: LILLIE VALDES Room #: 215-P ADM IN M.R.#: [id number] Admission: 06/05/17 Date of : 31 Discharge: Report #: [id number] Path Case #: [id number] [facility] [address] [address] PHONE: [phone] DIRECTOR: Edgar Mckeon M.D. * * * END OF REPORT * * *
--- NOTE | ~2017-06-05 | O ---
[facility] [place] [address] OPERATIVE REPORT Name: LILLIE VALDES Room #: 215-P [facility] IN M.R.#: [id number] Admission: 06/05/17 Attend Phys: Ryan Campos MD Discharge: 06/12/17 Date of : 31 Report #: [id number] THIS REPORT FOR: //name// CC: Ryan BRICE DATE OF SERVICE: 06/07/2017 PREOPERATIVE DIAGNOSES: Right parapneumonic effusion, loculated. POSTOPERATIVE DIAGNOSES: Right parapneumonic effusion, loculated. OPERATIVE PROCEDURE PERFORMED: Right thoracotomy with decortication of right lower lobe and right middle lobe. SURGEON: Tony Cary MD KING MAKER: Emily Best. ANESTHESIA: General. OPERATIVE INDICATIONS: The patient is an 86-year-old male who has had a recent upper respiratory illness consistent with pneumonia. He has developed a right parapneumonic effusion, for which he has undergone thoracentesis. There was incomplete removal of all fluid and there is evidence of loculation on CT imaging. He is brought to the operating room now for a thoracotomy for decortication. OPERATIVE SUMMARY: The patient was brought to the operating room, placed on the OR table in supine position after anesthesia was induced via general endotracheal route. Monitoring lines were positioned. The patient was placed in the left lateral decubitus position and prepped and draped in sterile fashion with chlorhexidine. We performed standard right posterolateral thoracotomy incision. We entered the pleural space through the sixth intercostal space. We immediately encountered inflamed and thickened pleura and significant fibrinopurulent exudates. These exudates were removed from the parietal pleural surface and the diaphragm. We then performed decortication of the right lower lobe and right middle lobe. A partial inflation of the lung was performed during this dissection to facilitate removal of the exudates from the lung surface. Minimal blood loss was incurred and good reexpansion of the right lower lobe as well as the right middle lobe were achieved. Upon completion of the decortication, we placed three 28-German chest tubes into the right pleural space bringing them out through separate stab incisions. The ribs were then reapproximated with #1 PDS. The muscular layers were closed with #1 Vicryl in the subcutaneous tissues with 3-0 Vicryl and the skin with a 3-0 Monocryl. Procedure was completed. The patient was taken to the postanesthesia care unit [address] [address] OPERATIVE REPORT Name: LILLIE VALDES Room #: 215-P DIS IN .R.#: [id number] Admission: 06/05/17 Attend Phys: Ryan Campos MD Discharge: 06/12/17 Date of : 31 Report #: [id number] in stable condition. The operative blood loss was approximately 50 mL. There were no intraoperative complications noted. All sponge and needle counts were reported as correct. <ELECTRONICALLY SIGNED> By: Tony Cary MD 08/07/17 1022 1748 1759 Tony Cary MD /nt
--- NOTE | ~2017-06-05 | H ---
[facility] [place] [address] HISTORY AND PHYSICAL Name: LILLIE VALDES Room #: 201-P ADM IN M.R.#: [id number] Admission: 06/05/17 Attend Phys: Ryan Campos MD Discharge: Date of : 31 Report #: [id number] THIS REPORT FOR: //name// CC: Ryan BRICE DATE OF SERVICE: 06/05/2017 HISTORY OF PRESENT ILLNESS: The patient is an 86-year-old man who was admitted to the hospital initially on 05/18/2017. The patient was treated for pneumonia and sepsis, as well as for hyponatremia. He also had history of alcohol withdrawal, and debility. The patient was transferred to the rehabilitation unit after hospitalization. While in the hospital, the patient developed paroxysmal atrial fibrillation, as well as he developed right-sided pleural effusion. He was transferred to the rehabilitation unit on 05/25/2017. The patient was doing well, and he was supposed to go home. In fact, he continues to feel well and he has no complaints. The patient is followed by industrial design intern and set up mechanic while in the rehabilitation. Chest x-ray that was repeated yesterday showed reaccumulation of the right-sided pleural fluid. The patient already finished Augmentin therapy. Knife Operator recommended admitting the patient to the hospital for further evaluation and treatment. Currently, the patient feels well. He has no chest pain, shortness of breath, blurry vision, dizziness, or other complaints. PAST MEDICAL HISTORY: 1. Recent community-acquired pneumonia and right-sided pleural effusion as detailed above. 2. Atrial fibrillation, diagnosed recently, on Lovenox for anticoagulation. 3. Alcoholism. 4. Dyslipidemia. 5. Essential tremor. 6. Right lower extremity aneurysm repair. 7. Degenerative joint disease, status post hip replacement. 8. Dyslipidemia. CURRENT MEDICATIONS: Reviewed and documented in the patient's chart. FAMILY HISTORY: Reviewed and not pertinent to the patient's current condition. SOCIAL HISTORY: The patient drinks alcohol. [facility] [address] [place] [address] HISTORY AND PHYSICAL Name: LILLIE VALDES [facility] M.R.[facility] [id number] Admission: 06/05/17 Attend Phys: Ryan Campos MD Discharge: Date of : 31 Report #: [id number] REVIEW OF SYSTEMS: As above in HPI section, all others negative. PHYSICAL EXAMINATION: GENERAL: The patient is an elderly man who is in no apparent distress. VITAL SIGNS: Blood pressure is 132/66, heart rate is 78 and regular, respiration is 20, temperature is 97.2, and oxygen saturation is 97%. HEENT: Pupils are equal. Eye movements are normal. The patient has anicteric sclerae. NECK: Supple. The patient has no thyromegaly. Oral mucosa is moist. RESPIRATORY: Chest moves symmetrically with breathing. Respiratory sounds are diminished at the bases, more on the right. CARDIOVASCULAR: The patient has irregularly irregular heart rate. He has no murmurs, gallops or rubs. GASTROINTESTINAL: Abdomen is soft, nondistended and nontender. Bowel sounds are present. The patient has no hepatomegaly or splenomegaly. MUSCULOSKELETAL: There is no edema, cyanosis or clubbing. Range of motion is normal. The patient has no joint deformities. NEUROLOGIC: The patient's exam is nonfocal. He is alert and oriented x 3. SKIN: No lymphadenopathy is palpated. LABORATORY DATA: Basic metabolic profile is essentially normal, except a slightly low sodium at 133. A couple of weeks ago, albumin level was 2.2. CBC shows anemia with hemoglobin of 9.0. White count and platelets are normal. On chest x-ray, the patient has right pleural effusion. ASSESSMENT AND PLAN: 1. Right pleural effusion, recurrent. 2. Recent pneumonia. The patient already finished Augmentin therapy yesterday. Knife Operator is consulted. Input is very much appreciated. Since hemothorax is also a consideration, we will hold Lovenox for now. The patient is scheduled to have paracentesis. 3. Paroxysmal atrial fibrillation. Rate controlled on diltiazem. Continue unchanged. Again, holding Lovenox for now until the patient is further evaluated for right-sided pleural effusion. 4. Hyponatremia, mild. Continue monitoring. 5. Alcohol abuse. No withdrawals. Continue multivitamins. 6. History of tobacco abuse. Suspected chronic obstructive pulmonary disease clinically. 7. Essential tremor, mild, asymptomatic. <ELECTRONICALLY SIGNED> By: Ryan Campos MD 06/06/17 1646 [id number] [id number] Ryan Campos MD /nt
--- NOTE | ~2017-06-05 | HC ---
[facility] [place] [address] CONSULTATION Name: LILLIE VALDES Room #: 215-P [facility] IN M.R.#: [id number] Admission: 06/05/17 Attend Phys: Ryan Campos MD Discharge: 06/12/17 Date of : 31 Report #: [id number] THIS REPORT FOR: //name// CC: Ryan CHEW DATE OF SERVICE: 06/06/2017 PERSONAL PHYSICIAN: Jonh Chew MD. CHIEF COMPLAINT: Left forearm wound. HISTORY OF PRESENT ILLNESS: This is an 86-year-old white male who was initially hospitalized on 05/18/2017 for pneumonia and sepsis. The patient also was treated for a right-sided pleural effusion. The patient did well with the appropriate treatment with antibiotics and was taken to the Rehab Unit where he did good with his physical and occupational therapy. The patient, however, was noted on the Rehab Unit to have possible IV infiltration in his left forearm which subsequently developed a purulent wound. Wound care nurse saw the patient initially and felt that we needed to follow the patient as well, so a consultation was put into the Wound Care service. The patient states he has no pain associated with the forearm wound. The patient has now been readmitted to the acute hospital for reaccumulation of his right-sided pleural effusion and for thoracentesis. PAST MEDICAL HISTORY: Significant for community-acquired pneumonia and right sided pleural effusion; recent onset of atrial fibrillation, on Lovenox; history of alcoholism; dyslipidemia; degenerative joint disease with previous hip replacement; generalized debility. CURRENT MEDICATIONS: Multiple. Review patient's medication chart. DRUG ALLERGIES: None. FAMILY HISTORY: Not pertinent to current medical condition. SOCIAL HISTORY: The patient has a remote history of smoking as well as a history of continued alcohol use. REVIEW OF SYSTEMS: CONSTITUTIONAL: The patient denies fevers or chills. NEUROLOGIC: The patient has overall generalized weakness, but no isolated weakness in arms or legs. EYES: No complaints. ENT: No complaints. CARDIAC: The patient complains of intermittent palpitations, but no chest pain [address] [place] [address] CONSULTATION Name: LILLIE VALDES Room #: 215-P [facility] IN M.R.#: [id number] Admission: 06/05/17 Attend Phys: Ryan Campos MD Discharge: 06/12/17 Date of : 31 Report #: [id number] or lower extremity edema. RESPIRATORY: The patient has mild shortness of breath associated with cough and is currently is scheduled for thoracentesis today. GASTROINTESTINAL: The patient denies nausea, vomiting, or diarrhea. GENITOURINARY: The patient denies urgency or frequency. MUSCULOSKELETAL: No complaints. SKIN: There is a wound in the left forearm secondary to IV infiltration. PHYSICAL EXAMINATION: VITAL SIGNS: Temperature 36.6, pulse 70, respiratory rate of 18, BP 171/66. GENERAL: This is an alert and oriented x 3, chronically ill appearing white male, who is in no acute distress. HEENT: Normocephalic, atraumatic. Mucous membranes are slightly dry. Pupils are round. Sclerae white. NECK: Shows no JVD, otherwise supple. LUNGS: Diminished breath sounds on the right, but occasional crackle on the left. HEART: Irregularly irregular with a 2/6 systolic ejection murmur. ABDOMEN: Soft, nontender, without organomegaly. EXTREMITIES: The patient moves all extremities without difficulty. Distal pulses are intact. Evaluation of left forearm reveals a wound with a small opening, which measured 0.5 x 0.5 x 1.5. There is seropurulent drainage coming from the wound itself, however, it is nontender. There is no odor. The overlying epidermal tissue was very fragile. There is no increased erythema or warmth. NEUROLOGIC: Cranial nerves 2-12 are grossly intact. Motor and sensory grossly intact. LABORATORY DATA: White count 9.3, hemoglobin 8.5. BUN 11, creatinine 1.0. Albumin 2 weeks ago was 2.2. IMPRESSION: 1. Left forearm wound secondary to IV infiltration. 2. Recurrent right pleural effusion with a recent history of the community-acquired pneumonia. 3. Atrial fibrillation. 4. Protein-calorie malnutrition -- severe. Previous albumin of 2.2. 5. Generalized debility. 6. History of alcoholism. PLAN: At this time, wound culture was obtained of left forearm. The patient just finished a course of Augmentin. We will hold off on any further antibiotics at this time pending the culture results. We will continue packing the wound with Aquacel Ag and cover with a foam dressing, changed this daily. We will continue to follow the patient and will make sure we maximize his oral supplementation of protein for healing. The patient also will utilize physical [address] [address] CONSULTATION Name: LILLIE VALDES Room #: 215-P DIS IN M.R.#: [id number] Admission: 06/05/17 Attend Phys: Ryan Campos MD Discharge: 06/12/17 Date of : 31 Report #: [id number] and occupational therapy for continued strengthening. The patient is also going to have his thoracentesis performed today for his recurrent pleural effusion. <ELECTRONICALLY SIGNED> By: Asael Cottrell MD 07/19/17 1525 1047 [id number] Asael Cottrell MD /nt
--- NOTE | ~2017-06-05 | CNG ---
[facility] [address] [place] [address] CYTO-NONGYN REPORT PROCEDURE Name: LILLIE VALDES Room #: 250-P ADM IN M.R.#: [id number] Admission: 06/05/17 Date of : 31 Discharge: Report #: [id number] Path Case #: [id number] CYTOPATHOLOGY REPORT COLLECTION DATE: 06/06/2017 RECEIVED DATE: 06/07/2017 SUBMITTING PHYS: Dr. Ryan Campos OTHER PHYS: CLINICAL HISTORY: Pleural effusion; see also [id number] SPECIMEN(S) RECEIVED: A.Pleural fluid * * * * * * * * * * * * FINAL DIAGNOSIS: A. Pleural fluid: - No malignant epithelial cells identified. - Acute and chronic inflammatory cells and blood present. PATHOLOGIST: Sheba Schaffer M.D. REPORT ELECTRONICALLY SIGNED BY: Sheba Scahffer M.D. DATE/TIME: 06/08/2017 14:29 * * * * * * * * * * * * GROSS PATHOLOGY: A. Pleural fluid: The specimen is submitted unfixed, labeled "Lillie Valdes". Received by the Cytology Department is 15 mL of cloudy red fluid. One ThinPrep slide and a formalin fixed cell block were prepared. (06.07.2017) MANAGER LANGUAGE(S): DILAN Milton(ASCP) INITIAL CPT CODE(S): A; 37062, 45023 Professional services performed by [facility] at [facility] [address] [facility] , [place] [address] Technical services performed by [facility] at [address] [place] [address]., [address], [place] [address]. [facility] BR[facility] [address] [place] [address], [address] [place] [address] PHONE: [phone] [facility] [address] [place] [address] CYTO-NONGYN REPORT PROCEDURE Name: LILLIE VALDES Room #: 250-P ADM IN M.R.#: [id number] Admission: 06/05/17 Date of : 31 Discharge: Report #: [id number] Path Case #: [id number] DIRECTOR: Edgar Mckeon M.D. * * * END OF REPORT * * *
[~2017-06-05 12:06] MED LIST changes: +BISAC-EVAC10 MG RECTAL; +COLACE 100 MG100 MG PO; +MIRALAX17 GM PO; +PANTOPRAZOLE SO40 M1 PO; +SENNA8.6 MG PO
[2017-06-05 16:44] VITALS: BP 138/69
[2017-06-05 20:25] VITALS: BP 122/65
[2017-06-06 03:25] LABS: ABSOLUTE NEUTROPHILS 7.2 thou/uL (1.4-8.2); BASOPHILS 0.6 % (0.0-2.0); HEMATOCRIT 25.4 % (42.0-52.0); HEMOGLOBIN 8.5 gm/dL (14.0-18.0); LYMPHOCYTES 14.1 % (24.0-44.0); MCH 28.5 pg (26.0-34.0); MCHC 33.5 g/dL (28.0-37.0); MCV 85.2 fL (80.0-100.0); MONOCYTES 7.5 % (1.0-8.0); PLATELET COUNT 216 thou/uL (150-400); POLYS 76.8 % (36.0-66.0); RBC 2.98 mil/uL (4.50-6.00); RDW 16.2 % (10.5-14.5); WBC 9.3 thou/uL (4.0-11.0)
[2017-06-06 03:32] LABS: CALCIUM 7.9 mg/dL (8.5-10.1); POTASSIUM 3.4 mmol/L (3.5-5.1)
[2017-06-06 03:34] VITALS: BP 136/63
[2017-06-06 07:40] LABS: APTT 32.2 Seconds (24.5-32.8); FIBRINOGEN 427.9 mg/dL (210-360); PROTIME 10.2 Seconds (9.3-11.4)
[2017-06-06 07:53] VITALS: BP 171/66
[2017-06-06 11:10] VITALS: BP 142/72
[2017-06-06 15:10] LABS: CLARITY CLOUDY; COLOR RED; SOURCE RIGHT THORA; TOTAL VOLUME 40 mL
[2017-06-06 16:25] VITALS: BP 136/70
[2017-06-06 16:36] LABS: BF NUCLEATED CELLS 2055; BF RBC 40667 /uL
[2017-06-06 16:38] LABS: BF MACROPHAGE 7; BF NEUTROPHILS 88
[2017-06-06 19:30] VITALS: BP 129/67
[2017-06-07 03:16] LABS: ABSOLUTE NEUTROPHILS 6.8 thou/uL (1.4-8.2); EOSINOPHILS 1.2 % (0.0-3.0); HEMATOCRIT 26.6 % (42.0-52.0); HEMOGLOBIN 8.9 gm/dL (14.0-18.0); LYMPHOCYTES 11.9 % (24.0-44.0); MCH 28.3 pg (26.0-34.0); MCHC 33.4 g/dL (28.0-37.0); MCV 84.9 fL (80.0-100.0); MONOCYTES 7.7 % (1.0-8.0); PLATELET COUNT 210 thou/uL (150-400); POLYS 78.2 % (36.0-66.0); RBC 3.14 mil/uL (4.50-6.00); RDW 16.4 % (10.5-14.5); WBC 8.7 thou/uL (4.0-11.0)
[2017-06-07 03:28] LABS: POTASSIUM 3.9 mmol/L (3.5-5.1)
[2017-06-07 05:32] VITALS: BP 127/74
[2017-06-07 07:15] VITALS: BP 139/74
[2017-06-07 10:28] LABS: SOURCE CHEST
[2017-06-07 11:00] VITALS: BP 141/70
[2017-06-07 11:12] LABS: BODY FLUID ALBUMIN 1.6 g/dL (()); BODY FLUID AMYLASE 12 U/L (()); BODY FLUID GLUCOSE 85 mg/dL (()); BODY FLUID LDH 245 IU/L (()); BODY FLUID PROTEIN 3.3 g/dL (())
[2017-06-07 17:32] VITALS: BP 108/60
[2017-06-08] VITALS (19 sets, daily range): BP systolic 92–119; BP diastolic 44–102
[2017-06-08 05:30] LABS: HEMATOCRIT 23.4 % (42.0-52.0); HEMOGLOBIN 7.7 gm/dL (14.0-18.0); MCH 28.4 pg (26.0-34.0); MCHC 33.1 g/dL (28.0-37.0); MCV 85.7 fL (80.0-100.0); RBC 2.73 mil/uL (4.50-6.00); RDW 16.1 % (10.5-14.5); WBC 14.2 thou/uL (4.0-11.0)
[2017-06-08 05:37] LABS: CALCIUM 7.6 mg/dL (8.5-10.1); CREATININE 1.2 mg/dL (0.7-1.3); MAGNESIUM 1.7 mg/dL (1.8-2.4); POTASSIUM 4.7 mmol/L (3.5-5.1)
[2017-06-08 11:13] LABS: HEMATOCRIT 22.7 % (42.0-52.0); HEMOGLOBIN 7.6 gm/dL (14.0-18.0)
[2017-06-09] VITALS (19 sets, daily range): BP systolic 89–116; BP diastolic 54–89
[2017-06-09 05:33] LABS: ABSOLUTE NEUTROPHILS 8.2 thou/uL (1.4-8.2); BASOPHILS 0.4 % (0.0-2.0); EOSINOPHILS 1.2 % (0.0-3.0); HEMATOCRIT 21.9 % (42.0-52.0); HEMOGLOBIN 7.3 gm/dL (14.0-18.0); LYMPHOCYTES 10.6 % (24.0-44.0); MCH 28.6 pg (26.0-34.0); MCHC 33.4 g/dL (28.0-37.0); MCV 85.6 fL (80.0-100.0); MONOCYTES 7.3 % (1.0-8.0); PLATELET COUNT 197 thou/uL (150-400); POLYS 80.5 % (36.0-66.0); RBC 2.56 mil/uL (4.50-6.00); RDW 16.7 % (10.5-14.5); WBC 10.2 thou/uL (4.0-11.0)
[2017-06-09 05:46] LABS: CALCIUM 7.6 mg/dL (8.5-10.1); CREATININE 1.1 mg/dL (0.7-1.3); MAGNESIUM 1.7 mg/dL (1.8-2.4); POTASSIUM 4.7 mmol/L (3.5-5.1)
[2017-06-10 03:52] LABS: HEMATOCRIT 21.6 % (42.0-52.0); HEMOGLOBIN 7.3 gm/dL (14.0-18.0); MCH 28.5 pg (26.0-34.0); MCHC 33.7 g/dL (28.0-37.0); MCV 84.7 fL (80.0-100.0); RBC 2.55 mil/uL (4.50-6.00); RDW 16.7 % (10.5-14.5); WBC 8.3 thou/uL (4.0-11.0)
[2017-06-10 04:14] LABS: ALBUMIN 1.5 g/dL (3.4-5.0); CALCIUM 7.6 mg/dL (8.5-10.1); CREATININE 1.2 mg/dL (0.7-1.3); POTASSIUM 4.5 mmol/L (3.5-5.1); TOTAL BILIRUBIN 0.3 mg/dL (<0.1-1.0); TOTAL PROTEIN 5.3 g/dL (6.4-8.2)
[2017-06-10 04:30] VITALS: BP 112/62
[2017-06-10 07:30] VITALS: BP 118/59
[2017-06-10 11:20] VITALS: BP 117/60
[2017-06-10 15:15] VITALS: BP 125/62
[2017-06-10 20:00] VITALS: BP 116/65
[2017-06-11 02:54] LABS: MCH 28.2 pg (26.0-34.0); MCHC 33.2 g/dL (28.0-37.0); MCV 85.1 fL (80.0-100.0); RBC 2.47 mil/uL (4.50-6.00); RDW 16.7 % (10.5-14.5); WBC 6.6 thou/uL (4.0-11.0)
[2017-06-11 03:14] LABS: ALBUMIN 1.3 g/dL (3.4-5.0); CALCIUM 7.8 mg/dL (8.5-10.1); POTASSIUM 4.2 mmol/L (3.5-5.1); TOTAL BILIRUBIN 0.3 mg/dL (<0.1-1.0); TOTAL PROTEIN 4.9 g/dL (6.4-8.2)
[2017-06-11 04:30] VITALS: BP 110/62
[2017-06-11 08:00] VITALS: BP 119/66
[2017-06-11 11:35] VITALS: BP 122/59
[2017-06-11 14:54] VITALS: BP 115/63; BP 129/58
[2017-06-11 15:40] VITALS: BP 121/55
[2017-06-11 19:43] VITALS: BP 119/68
[2017-06-12 03:37] LABS: ABSOLUTE NEUTROPHILS 4.3 thou/uL (1.4-8.2); BASOPHILS 0.6 % (0.0-2.0); EOSINOPHILS 2.7 % (0.0-3.0); HEMOGLOBIN 8.5 gm/dL (14.0-18.0); LYMPHOCYTES 16.2 % (24.0-44.0); MCH 28.4 pg (26.0-34.0); MCHC 33.8 g/dL (28.0-37.0); MONOCYTES 8.5 % (1.0-8.0); PLATELET COUNT 246 thou/uL (150-400); RBC 2.97 mil/uL (4.50-6.00); RDW 16.4 % (10.5-14.5)
[2017-06-12 03:46] LABS: CALCIUM 7.9 mg/dL (8.5-10.1)
[2017-06-12 04:04] VITALS: BP 123/52
[2017-06-12 07:55] VITALS: BP 124/62
[2017-06-12] MEDS ORDERED: RAPAFLO4 MG PO (11:53)
[2017-06-12 12:00] VITALS: BP 134/65
== END 2017-06-12 15:19 | DRG 163 ==
LOC: TBA 12:06 → 2N 15:34 → TBA 06-07 13:15 → ICU 06-07 18:11 → 2N 06-09 17:31
PROVIDERS: Hospitalist; Internal Medicine; Internal Medicine Endocrinology, Diabetes & Metabolism; Nurse Practitioner
PROC: 0W993ZZ Drainage of Right Pleural Cavity, Percutaneous Approach (ICD-10-PCS; principal; 2017-06-06)
PROC: 0BCF0ZZ Extirpation of Matter from Right Lower Lung Lobe, Open Approach (ICD-10-PCS; 2017-06-07)
PROC: 0BC Respiratory System, Extirpation (ICD-10-PCS; 2017-06-07)
PROC: 30233N1 Transfusion of Nonautologous Red Blood Cells into Peripheral Vein, Percutaneous Approach (ICD-10-PCS; 2017-06-11)
DX: J90 Pleural effusion, not elsewhere classified (principal); E43 Unspecified severe protein-calorie malnutrition; E87.1 Hypo-osmolality and hyponatremia; D62 Acute posthemorrhagic anemia; E78.5 Hyperlipidemia, unspecified; Z96.649 Presence of unspecified artificial hip joint; I48.0 Paroxysmal atrial fibrillation; F10.10 Alcohol abuse, uncomplicated; E87.6 Hypokalemia; R34 Anuria and oliguria; E83.42 Hypomagnesemia; R33.9 Retention of urine, unspecified; Z68.22 Body mass index [BMI] 22.0-22.9, adult; Z80.52 Family history of malignant neoplasm of bladder; Z87.891 Personal history of nicotine dependence; Z28.21 Immunization not carried out because of patient refusal; Z87.01 Personal history of pneumonia (recurrent)
CPT/HCPCS: 10078; 10081; 47405; 50010; 50101; 50386; 50417; 50455; 50497; 50555; 51687; 52265; 56462; 56524; 56525; 56526; 56527; 62110; 62900; 65020; 65040; 65043; 65105; 70005

== ENCOUNTER 2017-06-12 12:06 | Inpatient (IN) | payer OTHER ==
[~2017-06-12] VITALS: Ht 172.7 cm; Wt 67.4 kg
--- NOTE | ~2017-06-12 | EKG ---
[address] [address] ELECTROCARDIOGRAM REPORT Name: LILLIE VALDES Room #: 504-1 ADM IN M.R.#: [id number] Admission: 06/12/17 Attend Phys: Fausto Martini MD Discharge: Date of : 31 Report #: [id number] THIS REPORT FOR: //name// [facility] Test Date: 2017-06-17 Test Time: 09:41:33 Pat Name: LILLIE VALDES Department: Room: [facility] Gender: M Insurance Customer Service Specialist: NA0MA : 1930 Requested By: Merissa White Order Number: [id number] MD: Kurtis Tadeo Measurements Intervals [place] Rate: 71 P: 48 AL: 220 QRS: -4 QRSD: 111 T: 43 QT: 469 QTc: 510 Interpretive Statements Sinus rhythm Prolonged AL interval Poor R wave progression Prolonged QT interval Compared to ECG 05/22/2017 06:19:25 Prolonged QT interval now present poor R wave progression is now present Electronically Signed On 06-17-2017 11:00:25 [employer] by Kurtis Tadeo [email or web address] <ELECTRONICALLY SIGNED> By: Kurtis Tadeo MD, [facility] 06/17/17 1100 0941 0941 Kurtis Tadeo MD, [facility] /EPI
--- NOTE | ~2017-06-12 | H ---
[facility] [place] [address] HISTORY AND PHYSICAL Name: LILLIE VALDES Room #: 504-1 ADM IN M.R.#: [id number] Admission: 06/12/17 Attend Phys: Fausto Martini MD Discharge: Date of : 31 Report #: [id number] THIS REPORT FOR: //name// CC: Fausto BRICE DATE OF SERVICE: 06/13/2017 HISTORY AND PHYSICAL/POST-ADMISSION PHYSICIAN EVALUATION HISTORY OF PRESENT ILLNESS: The patient is an 86-year-old white male previously known to me originally admitted to [facility] with increased shortness of breath. He was diagnosed with pneumonia, noted to have hyponatremia. He underwent thoracentesis on the right on 05/21/2017. He was monitored regarding atrial fibrillation. He was also noted to have encephalopathy with delirium, multifactorial with a toxic metabolic with the sepsis complicated likely by a prior history of alcohol use or abuse. He was on the inpatient rehabilitation das. He made nice progress to the point of ambulating 250 feet standby assistance. Transfers are standby assistance. He was noted to have [id number] comprehensive deficits with his sense of encephalopathy. He was followed by Pulmonary Medicine on the rehab das. He was noted to have an exudative right pleural effusion and had three thoracenteses, nondiagnostic with a recurrent left effusion. He was discharged from the rehab das back to the acute care hospital for evaluation for diuresis, thoracentesis and reassessment. While on the acute care floor, he was seen by Pulmonary and a CT of the chest revealed a loculated pleural effusion and so Cardiothoracic Surgery was consulted and a thoracotomy with decortication and a chest tube placement was done. Pleural effusion was drained. Chest tube was pulled. He was noted to be debilitated and to need pulmonary rehabilitation. He has been readmitted to the inpatient rehabilitation das for pulmonary rehabilitation and for medical complexity with generalized debilitation. PAST MEDICAL HISTORY: Includes prior left total hip replacement approximately 5 years ago, history of a left knee repair, essential tremor, prior cholecystectomy, history of hyperlipidemia. PAST SURGICAL HISTORY: As noted above. HABITS: Alcohol 3-6 beers per day. Tobacco 7-8 cigarettes per day, smoked approximately for 65 years, every day smoker. ALLERGIES: No known drug allergies. SOCIAL HISTORY: Lives with his significant other in a house, two steps in. There are 15 inside. There is an involved daughter as well as an involved son. He was premorbidly independent, ambulatory without gait aids and driving. [facility] [address] [place] [address] HISTORY AND PHYSICAL Name: LILLIE VALDES Room #: 504-1 [facility] IN [facility]#: [id number] Admission: 06/12/17 Attend Phys: Fausto Martini MD Discharge: Date of : 31 Report #: [id number] REVIEW OF SYSTEMS: No current complaints of chest pain, shortness of breath at rest. Does have some shortness of breath with activity. No focal extremity pain complaints. He is currently on nasal prong O2. PHYSICAL EXAMINATION: GENERAL: An 86-year-old white male in no obvious distress. VITAL SIGNS: Last recorded temperature 97.7, pulse 80, respirations 20, blood pressure 121/71. HEENT: He appeared to be benign. Facies were symmetric. CHEST: Some decreased breath sounds. Chest tube site dressed. CARDIAC EXAM: Sounded regular rate and rhythm. ABDOMEN: Bowel sounds positive, nontender. GENITOURINARY AND RECTAL: Deferred. NEUROLOGIC: Follows basic commands without difficulty, functional range of motion of both upper extremities with strength grade 4-/5. DTRs are 1. Lower extremities, no focal calf swelling, functional range of motion. Strength is grade 4-/5. DTRs are trace to 1. He is min assist as far as basic transfers with min assist for short distance ambulation. No focal calf swelling. ASSESSMENT: An 86-year-old white male admitted to the inpatient rehabilitation das with the following problem list: 1. Pulmonary rehabilitation. 2. Medical complexity with generalized debilitation. 3. Exudative right pleural effusion, status post decortication with chest tube is out. 4. Pneumonia, resolved. 5. Small left pleural effusion, trying diuresis. 6. Probable chronic obstructive pulmonary disease. 7. Atrial fibrillation with conversion to normal sinus rhythm as per Cardiology. 8. Tobacco abuse. 9. Recent rehabilitation stay for encephalopathy. PLAN: The patient is admitted for acute in-hospital inpatient rehabilitation. From a postadmission physician evaluation perspective, there are no relevant changes since the preadmission screening. Please see the above review of prior and current medical and functional conditions and comorbidities. Please see the patient's previous and current functional status. As far as risk of complications, the patient has multiple medical comorbidities as noted above. Initial plan of care involves the interdisciplinary acute inpatient rehabilitation program with a goal of maximizing the patient's functional independence, so that he can hopefully return back to his prior living situation. Measurable functional goals would be for him to become modified independent with transfers, mobility and ADLs, ambulatory at the walker level. Prognosis is reasonably good with estimated length of stay probably at least 10 [facility] [address] [place] [address] HISTORY AND PHYSICAL Name: LILLIE VALDES Room #: 504-1 ADM IN M.R.#: [id number] Admission: 06/12/17 Attend Phys: Fausto Martini MD Discharge: Date of : 31 Report #: [id number] days to 2 weeks pending progress. Potential barriers would include the patient's multiple medical comorbidities and decreased functional status. The patient meets diagnostic criteria for an acute in-hospital inpatient rehabilitation stay. The patient meets medical necessity criteria and we will have the multiple water resource consultant physicians continue to follow while he is on the rehab das. He does have the tolerance for therapies and has appropriate discharge goals back to the home setting. <ELECTRONICALLY SIGNED> By: Fausto Martini MD 06/14/17 1442 0826 0909 Fausto Martini MD /[facility]
--- NOTE | ~2017-06-12 | HC ---
[facility] [place] [address] CONSULTATION Name: LILLIE VALDES Room #: 512-P ADM IN M.R.#: [id number] Admission: 06/12/17 Attend Phys: Fausto Martini MD Discharge: Date of : 31 Report #: [id number] THIS REPORT FOR: //name// CC: Fausto BRICE DATE OF SERVICE: 06/17/2017 ATTENDING PHYSICIAN: Fausto Martini MD. LABEL STAMPER: Jean-Claude Orr, PhD. CLINICAL PRESENTATION: The patient is an 86-year-old male admitted to the [facility] for comprehensive rehabilitation program to improve functional mobility, activities of daily living and self-care and mental status secondary to deficits from medical complexity and general debility. He was initially admitted with hyponatremia and underwent thoracentesis on 05/21/2017. He initially presented with an encephalopathy and delirium that was considered multifactorial as a result of a toxic metabolic condition and sepsis. A prior history of alcohol abuse is reported. His diagnoses also include pneumonia, small left pleural effusion, chronic obstructive pulmonary disease, atrial fibrillation with conversion to normal sinus rhythm, tobacco abuse and as stated, encephalopathy. A complete description of his medical condition and history along with medications can be found in his medical record. Neuropsychological consultation was requested to provide assistance in the assessment of cognitive and emotional status and to provide recommendations and services. Prior to this most recent admission, he was living independently with the assistance of a female micro[employer] exchange administrator. The patient is a high school graduate. 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 He has 2 children. One child lives within the [place] area. He denies a previous history of treatment for anxiety/depression or mood or alcohol/drug abuse. However, he did report drinking approximately 5-6 beers daily. TECHNIQUES UTILIZED: Clinical interview, review of medical records, staff consultation and behavioral observation, mini mental status exam 2 standard version, clock drawing and calibrated ideational fluency assessment (letter and category and brief abstract reasoning test). EXAMINATION FINDINGS: The patient was alert and cooperative with the assessment. He accurately described events surrounding his hospitalization. He reports his symptoms to include tiredness and fatigue, decreased appetite and anxiety. He also notices a slight degree of difficulty with verbal expression. [facility] [address] [place] [address] CONSULTATION Name: LILLIE VALDES Room #: 512-P [facility] IN .R.#: [id number] Admission: 06/12/17 Attend Phys: Fausto Martini MD Discharge: Date of : 31 Report #: [id number] He does not report difficulty with sleep, depression or problems in memory. Fatigue is his main concern at this time. His performance on the MMSE 2 brief version is within normal limits with a raw score of 16 of 16. Performance on the MMSE 2 standard version is within normal limits with a raw score 28 of 30. However, the patient had difficulty in copying a simple geometric design and in writing a sentence. He had difficulty with clock drawing in regard to spatial organization and planning. He was unable to accurately write a sentence. Performance in category fluency was extremely low with a raw score of 19, T-score 28 and percentile rank of 1. His abstract reasoning score was in the impaired range with a raw score of 4 of 8. The patient is presenting with deficits in executive functioning and visual spatial organization and construction. He is alert and oriented and incidental recall appears within normal limits. 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 Unspecified anxiety disorder. RECOMMENDATIONS: The patient would benefit from a followup neuropsychological evaluation to clarify cognitive status. Continued impairment is suggested in executive functioning, although he is alert and oriented. This type of presentation can be related to subcortical neurocognitive disorder. Thank you very much for allowing me to provide the consultation on this patient. <ELECTRONICALLY SIGNED> By: Jean-Claude Orr, PhD 06/24/17 1240 1215 0516 Jean-Claude Orr, PhD /nt
--- NOTE | ~2017-06-12 | PLAN ---
[facility] [place] [address] REHAB UNIT PLAN OF CARE Name: LILLIE VALDES Room #: 512-P ADM IN M.R.#: [id number] Admission: 06/12/17 Attend Phys: Fausto Martini MD Discharge: Date of : 31 Report #: [id number] THIS REPORT FOR: //name// CC: Fausto BRICE DATE OF SERVICE: 06/15/2017 SUBJECTIVE: The patient is seen back today in followup. No specific complaints. OBJECTIVE: Last recorded temperature 97.8, pulse 72, respirations 18, blood pressure 112/56. He is alert. No focal calf swelling. Transfers are contact guard. He did ambulate 150 feet contact guard with a front-wheeled walker. In occupational therapy, lower body dressing is mod assist, upper body dressing is standby assistance. Speech therapy, he has mild to moderate comprehensive deficits. ASSESSMENT: 1. Pulmonary rehabilitation. 2. Medical complexity with generalized debilitation. 3. Exudative right pleural effusion, status post decortication with chest tube out. 4. Pneumonia, resolved. 5. Small left pleural effusion. 6. Probable chronic obstructive pulmonary disease. 7. Atrial fibrillation with conversion to normal sinus rhythm. 8. Tobacco abuse. 9. Recent rehabilitation stay for encephalopathy. PLAN: The overall plan of care is based on the preadmission screen, post-admission physician evaluation and information garnered from therapy assessments. 1. Estimated length of stay is probably at least 7-14 days pending progress. 2. Medical prognosis is reasonably good. 3. Anticipated interventions includes the interdisciplinary acute inpatient rehabilitation program with PT and OT involved, speech therapy is seeing him as well. Rehab nursing assisting regarding medication management, skin care prophylaxis, bowel and bladder issues and nursing education. Case management is involved as well as the rehab therapy team and the managed security sales consultant physicians. 4. Anticipated functional outcomes would be for the patient to become modified independent at least with the walker level with mobility and ADLs and further improved cognition. 5. Discharge destination would be back home with significant other. 6. Expected therapy by discipline includes PT, OT and speech 1 hour per day each five days a week throughout the duration of the acute inpatient [address] [address] REHAB UNIT PLAN OF CARE Name: LILLIE VALDES Room #: 512-P ADM IN .R.#: [id number] Admission: 06/12/17 Attend Phys: Fausto Martini MD Discharge: Date of : 31 Report #: [id number] rehabilitation stay. We may be able to decrease the speech therapy in favor of more PT and OT. ADDENDUM: The patient did miss some therapies yesterday secondary to testing. Also, we may consider removing the Peña catheter soon. <ELECTRONICALLY SIGNED> By: Fausto Martini MD 06/25/17 1226 0908 2327 Fausto Martini MD /PMT
--- NOTE | ~2017-06-12 | HC ---
[facility] [place] [address] CONSULTATION Name: LILLIE VALDES Room #: 512-P [facility] IN M.R.#: [id number] Admission: 06/12/17 Attend Phys: Fausto Martini MD Discharge: Date of : 31 Report #: [id number] THIS REPORT FOR: //name// CC: Fausto BRICE DATE OF SERVICE: 06/24/2017 CHIEF COMPLAINT: Left hip pain. HISTORY OF PRESENT ILLNESS: The patient is a pleasant 86-year-old male who complains of left hip pain. He denies any recent trauma such as falls on the left hip. He has been hospitalized since 04/2017 for pneumonia and pleural effusion. He moved to the [address] [place] [address] Rehab Unit about 5 days ago and reports that his hip pain started approximately 3 days ago. He does have a history of a prior total hip arthroplasty performed by Dr. Kwaku Guerrero about 5 years ago. The patient reports that he did well after the surgery and has had no pain or discomfort in the hip since then. Over the last 3 days, the patient complains of pain in the posterior aspect of the hip and into the quadriceps muscle. PAST MEDICAL HISTORY: Significant for hyperlipidemia, recent CAP, pleural effusion. PAST SURGICAL HISTORY: Left total hip replacement about 5 years ago, left knee repair, cholecystectomy, thoracentesis on 05/21/2017 and thoracotomy in 05/2017. ALLERGIES: No known drug allergies. MEDICATIONS: Please see medical record. SOCIAL HISTORY: The patient lives with his significant other prior to hospitalization, ambulates without any assistance. His daughter and son are both involved in the patient's care. PHYSICAL EXAMINATION: GENERAL: The patient is a pleasant 86-year-old male who is awake, alert and in no acute distress. VITAL SIGNS: Temperature 36.5 degrees Celsius, blood pressure 102/53, pulse rate 74, height 172 cm, weight 67 kilos. EXTREMITIES: Left lower extremity is neurovascularly intact. No tenderness to palpation of the anterior hip or groin. Tenderness to palpation of both posterior hip and superior quadriceps muscle. No tenderness to palpation to the left knee, calf or ankle. Mild pitting edema noted in the left ankle and foot. Range of motion of the left hip, flexion 110 degrees, internal rotation 10 degrees, external rotation 15 degrees. No pain with hip range of motion noted. [address] [address] CONSULTATION Name: LILLIE VALDES Room #: 512-P [facility] IN M.R.#: [id number] Admission: 06/12/17 Attend Phys: Fausto Martini MD Discharge: Date of : 31 Report #: [id number] IMAGING: Two views of the left hip performed on 06/21/2017 show left total hip arthroplasty intact without acute osseous abnormality. No evidence of loosening noted about the implants. IMPRESSION: Left hip pain. Five years status post left total hip arthroplasty. PLAN: We discussed with the patient and his daughter and son who are at bedside today that the x-ray showed stable implant without any sign of loosening or abnormal wear. We also discussed that with his recent increase in activities with being in the rehab unit over the last 5 days, this could account for his hip soreness as he has been more active in the last 5 days than he has over the last month. This change of activities can cause some pain and discomfort in the muscles. The patient also localizes his hip pain to the posterior aspect of the hip. We discussed that this could be related to his back as well. I would like for him to continue to work with physical therapy as tolerated. He may continue to weightbear as tolerated on the left lower extremity. I encouraged the patient to use ice and heat frequently on the posterior aspect of the hip as well as the anterior thigh and quadriceps regions. If his soreness is not improved over the next week or so, we could discuss further imaging; however, I believe that as he gains strength, his hip discomfort will improve. If he remains sore in the hip post-discharge, I would have him follow up with his primary surgeon, Dr. Kwaku Guerrero, for further evaluation. <ELECTRONICALLY SIGNED> By: LATA Alva 06/27/17 1347 1737 2143 LATA Alva /nt
[~2017-06-12 12:06] MED LIST changes: +RAPAFLO4 MG PO
[2017-06-12 15:30] VITALS: BP 129/73
[2017-06-12 19:55] VITALS: BP 121/71
[2017-06-13 04:19] LABS: HEMATOCRIT 24.1 % (42.0-52.0); HEMOGLOBIN 8.1 gm/dL (14.0-18.0); MCH 28.1 pg (26.0-34.0); MCHC 33.7 g/dL (28.0-37.0); MCV 83.4 fL (80.0-100.0); RBC 2.89 mil/uL (4.50-6.00); RDW 16.3 % (10.5-14.5)
[2017-06-13 04:21] LABS: CALCIUM 7.7 mg/dL (8.5-10.1); POTASSIUM 3.7 mmol/L (3.5-5.1)
[2017-06-13 06:36] VITALS: BP 128/71
[2017-06-13 09:48] LABS: % SATURATION 10 % (20-39); IRON 12 ug/dL (65-175); TIBC 122 ug/dL (250-450)
[2017-06-13 20:07] VITALS: BP 131/62
[2017-06-14 08:00] VITALS: BP 112/67
[2017-06-14 20:08] VITALS: BP 112/56
[2017-06-15 05:58] LABS: ABSOLUTE NEUTROPHILS 4.3 thou/uL (1.4-8.2); BASOPHILS 0.6 % (0.0-2.0); EOSINOPHILS 2.8 % (0.0-3.0); HEMATOCRIT 24.4 % (42.0-52.0); HEMOGLOBIN 8.3 gm/dL (14.0-18.0); LYMPHOCYTES 17.6 % (24.0-44.0); MCH 28.4 pg (26.0-34.0); MCV 83.5 fL (80.0-100.0); MONOCYTES 9.9 % (1.0-8.0); PLATELET COUNT 300 thou/uL (150-400); POLYS 69.1 % (36.0-66.0); RBC 2.92 mil/uL (4.50-6.00); RDW 16.3 % (10.5-14.5); WBC 6.2 thou/uL (4.0-11.0)
[2017-06-15 06:10] LABS: CALCIUM 7.9 mg/dL (8.5-10.1); CREATININE 0.9 mg/dL (0.7-1.3); MAGNESIUM 1.9 mg/dL (1.8-2.4); POTASSIUM 3.7 mmol/L (3.5-5.1)
[2017-06-15 08:00] VITALS: BP 98/48
[2017-06-15 20:13] VITALS: BP 129/73
[2017-06-16 08:00] VITALS: BP 135/63
[2017-06-16 14:14] LABS: BE(vivo) 2.2 mmol/L (-2 to +3); HCO3 25.1 mmol/L (22.0-26.0); PCO2 32.3 mmHg (35.0-45.0); PO2 79.3 mmHg (80.0-100.0); pH 7.509 (7.360-7.450); sO2 96.8 % (92.0-98.0)
[2017-06-16 20:00] VITALS: BP 133/73
[2017-06-17 05:05] LABS: HEMATOCRIT 22.9 % (42.0-52.0); HEMOGLOBIN 7.9 gm/dL (14.0-18.0); MCH 28.4 pg (26.0-34.0); MCHC 34.3 g/dL (28.0-37.0); RBC 2.76 mil/uL (4.50-6.00); RDW 16.2 % (10.5-14.5); WBC 6.9 thou/uL (4.0-11.0)
[2017-06-17 09:49] VITALS: BP 135/66
[2017-06-17 15:25] LABS: URINE BILIRUBIN NEGATIVE (Negative); URINE BLOOD 2+ (Negative); URINE CLARITY CLEAR; URINE COLOR YELLOW; URINE GLUCOSE-RANDOM* NEGATIVE (Negative); URINE KETONES NEGATIVE (Negative); URINE PROTEIN (DIPSTICK) TRACE (Negative); URINE UROBILINOGEN 0.2 E.U./dl (0.2-1.0)
[2017-06-17 15:35] LABS: URINE LEUKOCYTES-REFLEX TRACE (Negative); URINE NITRITE-REFLEX POSITIVE (Negative)
[2017-06-17 16:15] LABS: CASTS None Seen /LPF (None Seen); MUCUS 0-3 Light strn/LPF (None Seen); SQUAMOUS 0-3 Few /LPF (0-3); URINE RBC 3-10 Few /HPF (0-2)
[2017-06-17 16:16] LABS: BACTERIA-REFLEX 1-9 Few /HPF (None Seen); CRYSTALS None Seen /LPF (None Seen); WBC CLUMPS Few (None Seen)
[2017-06-17 20:10] VITALS: BP 118/56
[2017-06-18 03:15] LABS: URINE BILIRUBIN NEGATIVE (Negative); URINE BLOOD NEGATIVE (Negative); URINE CLARITY CLEAR; URINE COLOR YELLOW; URINE GLUCOSE-RANDOM* NEGATIVE (Negative); URINE KETONES NEGATIVE (Negative); URINE LEUKOCYTES-REFLEX NEGATIVE (Negative); URINE NITRITE-REFLEX NEGATIVE (Negative); URINE PROTEIN (DIPSTICK) NEGATIVE (Negative); URINE SPECIFIC GRAVITY 1.015 (1.005-1.035); URINE UROBILINOGEN 0.2 E.U./dl (0.2-1.0)
[2017-06-18 08:00] VITALS: BP 122/54
[2017-06-18 19:30] VITALS: BP 120/56
[2017-06-19 05:02] LABS: CALCIUM 7.8 mg/dL (8.5-10.1); POTASSIUM 3.9 mmol/L (3.5-5.1)
[2017-06-19 08:30] VITALS: BP 127/55
[2017-06-19 19:00] VITALS: BP 110/64
[2017-06-20 03:51] LABS: HEMOGLOBIN 8.1 gm/dL (14.0-18.0); WBC 7.9 thou/uL (4.0-11.0)
[2017-06-20 03:53] LABS: ABSOLUTE NEUTROPHILS 5.3 thou/uL (1.4-8.2); BASOPHILS 0.8 % (0.0-2.0); EOSINOPHILS 2.3 % (0.0-3.0); HEMATOCRIT 23.7 % (42.0-52.0); LYMPHOCYTES 21.6 % (24.0-44.0); MCV 82.3 fL (80.0-100.0); MONOCYTES 8.4 % (1.0-8.0); PLATELET COUNT 266 thou/uL (150-400); POLYS 66.9 % (36.0-66.0); RBC 2.88 mil/uL (4.50-6.00); RDW 16.3 % (10.5-14.5)
[2017-06-20 04:06] LABS: CALCIUM 7.4 mg/dL (8.5-10.1); MAGNESIUM 1.8 mg/dL (1.8-2.4)
[2017-06-20 04:10] LABS: POTASSIUM 3.8 mmol/L (3.5-5.1)
[2017-06-20 11:38] VITALS: BP 106/48
[2017-06-20 19:40] VITALS: BP 123/68
[2017-06-21 08:00] VITALS: BP 119/66
[2017-06-21 20:22] VITALS: BP 106/50
[2017-06-22 08:00] VITALS: BP 105/59
[2017-06-22 20:00] VITALS: BP 123/62
[2017-06-23 07:59] VITALS: BP 109/66
[2017-06-23 20:00] VITALS: BP 102/46
[2017-06-23 20:15] VITALS: BP 102/46
[2017-06-24 03:31] VITALS: BP 115/70
[2017-06-24 08:00] VITALS: BP 102/53
[2017-06-24 20:00] VITALS: BP 117/59
[2017-06-25 05:14] LABS: RBC 2.19 mil/uL (4.50-6.00)
[2017-06-25 05:17] LABS: ABSOLUTE NEUTROPHILS 4.9 thou/uL (1.4-8.2); BASOPHILS 1.3 % (0.0-2.0); EOSINOPHILS 0.8 % (0.0-3.0); LYMPHOCYTES 20.2 % (24.0-44.0); MCH 28.2 pg (26.0-34.0); MCHC 33.9 g/dL (28.0-37.0); MCV 83.2 fL (80.0-100.0); MONOCYTES 8.6 % (1.0-8.0); PLATELET COUNT 254 thou/uL (150-400); POLYS 69.1 % (36.0-66.0); WBC 7.1 thou/uL (4.0-11.0)
[2017-06-25 05:23] LABS: HEMATOCRIT 18.2 % (42.0-52.0); HEMOGLOBIN 6.2 gm/dL (14.0-18.0)
[2017-06-25 05:28] LABS: CALCIUM 7.8 mg/dL (8.5-10.1); POTASSIUM 4.3 mmol/L (3.5-5.1)
[2017-06-25 08:15] VITALS: BP 120/70
[2017-06-25] MEDS ORDERED: ASPIRIN EC325 MG PO (08:15)
[2017-06-25 14:29] VITALS: BP 120/70
[2017-06-25 14:31] VITALS: BP 120/70
[2017-06-25 15:06] VITALS: BP 117/66; BP 130/66
[2017-06-25 20:40] VITALS: BP 123/57
[2017-06-26 05:52] LABS: ABSOLUTE NEUTROPHILS 5.9 thou/uL (1.4-8.2); BASOPHILS 1.2 % (0.0-2.0); EOSINOPHILS 0.7 % (0.0-3.0); HEMOGLOBIN 7.9 gm/dL (14.0-18.0); LYMPHOCYTES 16.8 % (24.0-44.0); MCH 28.5 pg (26.0-34.0); MCHC 34.4 g/dL (28.0-37.0); MCV 82.7 fL (80.0-100.0); PLATELET COUNT 277 thou/uL (150-400); POLYS 73.3 % (36.0-66.0); RBC 2.78 mil/uL (4.50-6.00); RDW 16.4 % (10.5-14.5)
[2017-06-26 07:58] VITALS: BP 140/76
[2017-06-26] MEDS ORDERED: FERROUS SULFAT325 MG PO (09:30)
[2017-06-26 13:14] VITALS: BP 120/70
[2017-06-26 15:00] LABS: HEMATOCRIT 23.9 % (42.0-52.0); HEMOGLOBIN 8.1 gm/dL (14.0-18.0); MCH 28.2 pg (26.0-34.0); MCHC 33.7 g/dL (28.0-37.0); MCV 83.7 fL (80.0-100.0); RBC 2.86 mil/uL (4.50-6.00); RDW 16.7 % (10.5-14.5); WBC 10.3 thou/uL (4.0-11.0)
[2017-06-26 19:37] VITALS: BP 98/43
[2017-06-27 07:50] VITALS: BP 133/59
[2017-06-27 08:45] VITALS: BP 133/59
== END 2017-06-27 15:28 | DRG 947 ==
PROVIDERS: Family Medicine; Hospitalist; Internal Medicine Pulmonary Disease; Nurse Practitioner; Physical Medicine & Rehabilitation
PROC: 30233N1 Transfusion of Nonautologous Red Blood Cells into Peripheral Vein, Percutaneous Approach (ICD-10-PCS; principal; 2017-06-25)
DX: R53.81 Other malaise (principal); J18.9 Pneumonia, unspecified organism; J90 Pleural effusion, not elsewhere classified; E87.1 Hypo-osmolality and hyponatremia; E44.0 Moderate protein-calorie malnutrition; N39.0 Urinary tract infection, site not specified; I48.91 Unspecified atrial fibrillation; R41.0 Disorientation, unspecified; E78.5 Hyperlipidemia, unspecified; F17.210 Nicotine dependence, cigarettes, uncomplicated; R41.9 Unspecified symptoms and signs involving cognitive functions and awareness; F41.9 Anxiety disorder, unspecified; M25.552 Pain in left hip; E87.6 Hypokalemia; E83.42 Hypomagnesemia; D64.9 Anemia, unspecified; F10.10 Alcohol abuse, uncomplicated; G25.0 Essential tremor; K21.9 Gastro-esophageal reflux disease without esophagitis; B96.1 Klebsiella pneumoniae [K. pneumoniae] as the cause of diseases classified elsewhere; E53.8 Deficiency of other specified B group vitamins; R10.9 Unspecified abdominal pain; M25.551 Pain in right hip; S51.802A Unspecified open wound of left forearm, initial encounter; Z28.21 Immunization not carried out because of patient refusal; Z96.642 Presence of left artificial hip joint; Z68.22 Body mass index [BMI] 22.0-22.9, adult; Z90.49 Acquired absence of other specified parts of digestive tract; Z87.01 Personal history of pneumonia (recurrent); Z71.6 Tobacco abuse counseling; Z79.899 Other long term (current) drug therapy; Y82.8 Other medical devices associated with adverse incidents; Y92.89 Other specified places as the place of occurrence of the external cause; Y93.89 Activity, other specified; Y99.8 Other external cause status; Z71.41 Alcohol abuse counseling and surveillance of alcoholic
CPT/HCPCS: 10092; 10112

== ENCOUNTER 2017-07-02 00:21 | Inpatient (IN) | payer OTHER ==
[2017-07-02] VITALS (7 sets, daily range): BP systolic 91–142; BP diastolic 44–82
[~2017-07-02] VITALS: Ht 172.7 cm; Wt 71.0 kg
--- NOTE | ~2017-07-02 | P ---
[facility] [place] [address] PROCEDURE REPORT Name: LILLIE VALDES Room #: 352-P [facility] IN M.R.#: [id number] Admission: 07/02/17 Attend Phys: Ryan Campos MD Discharge: 07/17/17 Date of : 31 Report #: [id number] THIS REPORT FOR: //name// CC: Ryan BRICE DATE OF SERVICE: 07/11/2017 This is a delayed dictation. PROCEDURE: Fiberoptic bronchoscopy. INDICATION: Extensive mucus plugging and persistent pneumonia. ASA classification, class 3. DESCRIPTION OF PROCEDURE: After discussing risks and benefits of the planned procedure with the patient, he desired to proceed. After obtaining informed consent, he was brought to director of cardiac cath lab 3, where he was placed on continuous cardiopulmonary monitoring and supplemental oxygen and then given 4% lidocaine nebulized to anesthetize the upper respiratory tract. The patient received conscious sedation. A total of 2 mg of Versed were given to provide adequate sedation. Bronchoscope was then passed through the oral biteblock until the vocal cords were visualized. Lidocaine 1% was instilled in the vocal cords to provide topical anesthesia. Bronchoscope was then passed in the trachea and 1% lidocaine was instilled on the tracheobronchial tree bilaterally for topical anesthesia. Once complete, the airways were surveyed. FINDINGS: Mainstem, lobar, segmental and subsegmental bronchi were explored. Extensive mucus plugging noted throughout the right lower lobe bronchi, thick and tenacious, but relatively clear to white. This was purged and aspirated. No endobronchial masses were noted. Airways were patent post-procedure. The patient tolerated well. No noted complications. IMPRESSION: Mucus plugging, right lower lobe, status post bronchoscopy with airway clearance. PLAN: Continue with airway clearance measures. Await microbiologic tests. <ELECTRONICALLY SIGNED> By: Ovidio Ryan MD 08/20/17 0909 1647 0005 Ovidio Ryan MD /nt
--- NOTE | ~2017-07-02 | D ---
[facility] [place] [address] DISCHARGE SUMMARY Name: LILLIE VALDES Room #: 352-P ADM IN M.R.#: [id number] Admission: 07/02/17 Attend Phys: Ryan Campos MD Discharge: Date of : 31 Report #: [id number] THIS REPORT FOR: //name// CC: Ryan BRICE DATE OF SERVICE: 07/14/2017 HISTORY OF PRESENT ILLNESS: The patient is an 86-year-old man with complicated past medical history, who had prolonged hospitalization here starting by the end of April 2017. The patient was hospitalized for pneumonia and bilateral pleural effusions. Then, he had extensive rehab, followed by rehospitalization and rehab again. At this time, the patient came back with respiratory failure, suspected healthcare-associated pneumonia. Please refer to admission H and P for details. HOSPITALIZATION COURSE: The patient was hospitalized for suspected healthcare-associated pneumonia, which is recurrent problem, as well as an acute on chronic hypoxemic respiratory failure. The patient was started on broad spectrum antibiotics. Correspondence School Instructor was consulted. The patient had very slow improvement. CT of the chest showed bilateral pleural effusions. The patient had right-sided thoracentesis on July 05 with 2 liters fluid removed. Cultures showed no growth. After thoracentesis, the patient's condition slightly improved, but he largely remained symptomatic. The patient had bronchoscopy with BAL on 07/11/2017. The patient was found to have very thick secretions, but no evidence of tumor. BAL result is still pending. Per managing member, the patient's respiratory failure is multifactorial, including underlying COPD, possible pulmonary edema, and pleural effusions. The patient was started on Lasix. He did better. The patient has history of paroxysmal cardiac atrial fibrillation. Echo was unremarkable. He is in sinus rhythm on amiodarone and diltiazem. The patient was seen and evaluated by physical therapist. The patient has chronic debility and malnutrition. He remains weak. He will need rehab. residential facility placement was recommended. The patient will be discharged to the senior living facility on close outpatient followup. [facility] [address] [place] [address] DISCHARGE SUMMARY Name: LILLIE VALDES Room #: 352-P [facility] IN M.R.#: [id number] Admission: 07/02/17 Attend Phys: Ryan Campos MD Discharge: Date of : 31 Report #: [id number] DISCHARGE DIAGNOSES: 1. Acute on chronic respiratory failure, multifactorial, due to large pleural effusion, thick bronchial secretion, possible volume overload and recurrent pneumonia. 2. Pleural effusion, recurrent problem, right-sided thoracentesis on July 05. Two liters fluid removed. 3. Chronic anemia, stable hemoglobin. 4. History of recent alcoholism, weakness and debility. 5. Paroxysmal atrial fibrillation, on amiodarone and diltiazem. Not a candidate for anticoagulation. 6. Chronic obstructive pulmonary disease. DISCHARGE MEDICATIONS: Please refer to the medication reconciliation list. DISPOSITION: The patient is discharged to the senior living facility. FOLLOWUP PLAN: 1. Follow up with managing member as advised. 2. Follow up with the primary care physician in 1-2 weeks. I spent greater than 30 minutes to coordinate the patient's discharge from the hospital. <ELECTRONICALLY SIGNED> By: Ryan Campos MD 07/16/17 1410 1238 1311 Ryan Campos MD /nt
--- NOTE | ~2017-07-02 | CNG ---
[facility] [place] [address] CYTO-NONGYN REPORT PROCEDURE Name: LILLIE VALDES Room #: 352-P ADM IN M.R.#: [id number] Admission: 07/02/17 Date of : 31 Discharge: Report #: [id number] Path Case #: [id number] CYTOPATHOLOGY REPORT COLLECTION DATE: 07/11/2017 RECEIVED DATE: 07/11/2017 SUBMITTING PHYS: Dr. Ryan Campos OTHER PHYS: Dr. Ovidio Ryan CLINICAL HISTORY: Short of breath, pneumonia, pleural effusions, anemia COPD SPECIMEN(S) RECEIVED: A.Bronchoalveolar lavage, RLL * * * * * * * * * * * * FINAL DIAGNOSIS: A. Lung, RLL, Bronchoalveolar lavage: - No malignant cells identified. Pulmonary macrophages, a few inflammatory cells and fungal hyphal elements identified. PATHOLOGIST: Leann Vasquez M.D. REPORT ELECTRONICALLY SIGNED BY: Leann Vasquez M.D. DATE/TIME: 07/12/2017 13:29 * * * * * * * * * * * * GROSS PATHOLOGY: A. Bronchoalveolar lavage, RLL: The specimen is submitted unfixed, labeled "Lillie Valdes". Received by the Cytology Department is 13 mL of cloudy colorless fluid. One ThinPrep slide was prepared. (mm 07.11.2017) MARKETING SALES SUPERVISOR(S): DILAN Solis([facility]) INITIAL CPT CODE(S): A; 81862 Professional services performed by [facility] at [facility] [address], [place] [address] Technical services performed by [facility] at [address] [place] [address]., [address], [place] [address]. [facility] [address] [place] [address], [facility] [address] [place] [address] PHONE: [phone] [facility] [address] [address] CYTO-NONGYN REPORT PROCEDURE Name: MORGANLILLIE GUERRIER Room #: 352-P ADM IN M.R.#: [id number] Admission: 07/02/17 Date of : 31 Discharge: Report #: [id number] Path Case #: [id number] DIRECTOR: Edgar Mckeon M.D. * * * END OF REPORT * * *
--- NOTE | ~2017-07-02 | 2DMMODE ---
[address] [address] 2 D/M-MODE ECHOCARDIOGRAM Name: LILLIE VALDES Room #: 352-P ADM IN M.R.#: [id number] Admission: 07/02/17 Attend Phys: Ryan Campos Discharge: Date of : 31 Date of Service: 07/09/17 1422 Report #: [id number] THIS REPORT FOR: //name// APPROVED REPORT Study performed: 07/09/2017 12:59:49 EXAM: Comprehensive 2D, Doppler, and color-flow Echocardiogram Patient Location: Bedside Room #: [facility] Status: routine BSA: 1.80 HR: 84 bpm BP: 131/83 mmHg Other Information Study Quality: Good Indications Congestive Heart Failure Atrial Fibrillation Left Ventricle The left ventricle is normal size. There is normal left ventricular wall thickness. The left ventricular systolic function is normal. The left ventricular ejection fraction is within the normal range. LVEF is 50%. Right Ventricle The right ventricle is normal size. The right ventricular systolic function is normal. Atria The left atrium size is normal. The right atrium size is normal. Aortic Valve Aortic valve is calcified. Trace to mild aortic regurgitation. Mitral Valve The mitral valve is normal in structure. Trace mitral regurgitation. Tricuspid Valve [address] [address] 2 D/M-MODE ECHOCARDIOGRAM Name: LILLIE VALDES Room #: 352-P ADM IN M.R.#: [id number] Admission: 07/02/17 Attend Phys: Ryan Campos Discharge: Date of : 31 Date of Service: 07/09/17 [facility] Report #: [id number] The tricuspid valve is normal in structure. There is no tricuspid valve regurgitation noted. Pulmonic Valve The pulmonary valve is normal in structure. Great Vessels The aortic root is normal in size. IVC is normal in size and collapses >50% with inspiration. Pericardium Trace anterior pericardial effusion <Conclusion> The left ventricular systolic function is normal. LVEF is 50%. Aortic valve is calcified. Trace to mild aortic regurgitation. The mitral valve is normal in structure. Trace mitral regurgitation. Trace anterior pericardial effusion <ELECTRONICALLY SIGNED> By: Kurtis Tadeo MD, FACC 07/09/171421 21 21 Kurtis Tadeo MD, FACC /INF
--- NOTE | ~2017-07-02 | EKG ---
[place] [address] [facility] [place] [address] ELECTROCARDIOGRAM REPORT Name: LILLIE VALDES Room #: 352-P ADM IN M.R.#: [id number] Admission: 07/02/17 Attend Phys: Yobany Hensley MD Discharge: Date of : 31 Report #: [id number] THIS REPORT FOR: //name// [facility] ED Test Date: 2017-07-02 Test Time: 00:31:31 Pat Name: LILLIE VALDES Department: Room: [facility] Gender: M Senior Editor: KASH : 1930 Requested By: Charles Villalba Order Number: [id number] MD: Kurtis Tadeo Measurements Intervals [place] Rate: 93 P: 0 SC: 148 QRS: -29 QRSD: 111 T: QT: 384 QTc: 478 Interpretive Statements Sinus rhythm Borderline left axis deviation Low voltage, extremity leads Baseline wander in lead(s) II,III,aVF Compared to ECG 06/17/2017 09:41:33 Low QRS voltage now present Poor R-wave progression no longer present Electronically Signed On 07-02-2017 7:45:43 HEEL PACKER by Kurtis Tadeo [email or web address] <ELECTRONICALLY SIGNED> By: Kurtis Tadeo MD, [facility] 07/02/17 0745 Kurtis Tadeo MD, [facility] /EPI
--- NOTE | ~2017-07-02 | CNG ---
[facility] [place] [address] CYTO-NONGYN REPORT PROCEDURE Name: LILLIE VALDES Room #: 352-P ADM IN M.R.#: [id number] Admission: 07/02/17 Date of : 31 Discharge: Report #: [id number] Path Case #: [id number] CYTOPATHOLOGY REPORT COLLECTION DATE: 07/05/2017 RECEIVED DATE: 07/05/2017 SUBMITTING PHYS: Dr. Ovidio Ryan OTHER PHYS: Dr. Ryan Campos CLINICAL HISTORY: Pneumonia, pleural effusions, anemia, COPD, SOA SPECIMEN(S) RECEIVED: A.Pleural fluid, Left * * * * * * * * * * * * FINAL DIAGNOSIS: A. Left Pleural fluid: - No malignant cells identified. Few mildly reactive mesothelial cells are present along with marked acute inflammation. PATHOLOGIST: Leann Vasquez M.D. REPORT ELECTRONICALLY SIGNED BY: Leann Vasquez M.D. DATE/TIME: 07/06/2017 14:31 * * * * * * * * * * * * GROSS PATHOLOGY: A. Pleural fluid, Left: The specimen is submitted unfixed, labeled "Lillie Valdes". Received by the Cytology Department is 25 mL of cloudy yellow fluid. One ThinPrep slide and a formalin fixed cell block were prepared. (lg 07.05.2017) BOTTLING EQUIPMENT SALES REPRESENTATIVE(S): DILAN Milton([facility]) INITIAL CPT CODE(S): A; 99092, 98459 Professional services performed by [facility] at [facility] [address], [place] [address] Technical services performed by [facility] at [address] [place] [address]., [address], [place] [address]. [facility] [address] [place] [address], [facility] [address] [place] [address] PHONE: [phone] [facility] [address] [place] [address] CYTO-NONGYN REPORT PROCEDURE Name: LILLIE VALDES Room #: 352-P ADM IN M.R.#: [id number] Admission: 07/02/17 Date of : 31 Discharge: Report #: [id number] Path Case #: [id number] DIRECTOR: Edgar Mckeon M.D. * * * END OF REPORT * * *
--- NOTE | ~2017-07-02 | HC ---
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 HISTORY OF PRESENT ILLNESS: This is an 86-year-old male patient with whom I am familiar from recent hospitalization who was admitted with cough and shortness of breath, felt to have additional pneumonia. I have seen him recently for the ulceration on his left forearm. He also has had a loculated pleural effusion, required a thoracotomy and decortication. He states he feels relatively well at this time. PAST MEDICAL HISTORY: Positive for COPD, healthcare-associated pneumonia, hypoalbuminemia, and sepsis. He had an IV site infiltrate in his left forearm, developed necrosis there and also history of atrial fibrillation. MEDICATIONS: Include docusate, polyethylene glycol, pantoprazole, Rapaflo, Atrovent inhaler, levalbuterol, nicotine transdermal, amiodarone, diltiazem, aspirin, and ferrous sulfate. SOCIAL HISTORY: The patient has smoked cigarettes 1 pack per day for 60 years, has significant alcohol intake. FAMILY HISTORY: Noncontributory. REVIEW OF SYSTEMS: CONSTITUTIONAL: The patient denies fever, chills, or weight loss. NEUROLOGIC: The patient denies focal weakness, numbness, or tingling. EYES: The patient denies visual changes, redness or drainage. ENT: The patient denies earache, nasal drainage or sore throat. CARDIOVASCULAR: The patient denies chest pain, palpitations, or diaphoresis. PULMONARY: The patient does complain of cough and shortness. GASTROINTESTINAL: The patient denies nausea, vomiting, diarrhea or abdominal pain. ORTHOPEDIC: The patient is aware of the ulcerations in his left forearm. Denies pain associated with this. Other systems in a 14-point review of systems are negative. ALLERGIES: None. [facility] [address] [place] [address] CONSULTATION Name: LILLIE VALDES Room #: 352-P [facility] IN M.R.#: [id number] Admission: 07/02/17 Attend Phys: Ryan Campos MD Discharge: Date of : 31 Report #: [id number] PHYSICAL EXAMINATION: VITAL SIGNS: Include pulse 82, respiratory rate of 16, blood pressure 130/82, and temperature 98.3. GENERAL: This is a chronically ill-appearing male patient who appears to be in minimal distress. HEAD: Normocephalic. NOSE AND THROAT: Clear. NECK: Supple. LUNGS: chest wall demonstrates thoracotomy sites appear to be well healed. ABDOMEN: Soft, nontender. EXTREMITIES: Demonstrate ulceration of the left forearm, it is healthy clean, granulating and much improved since he was most recently hospitalized. Thoracotomy sites on the right side of the chest wall appeared to be well healed. CLINICAL IMPRESSION: 1. An IV infiltration site and subsequent ulceration of the left forearm, improving. 2. Thoracotomy sites to the right chest wall closed. RECOMMENDATIONS: The right side of the chest wall can be left open to air. We will recommend topical Alyssa covered with foam to the left forearm, to be changed Sunday, Sunday and Sunday. Recommend aggressive nutritional support to maximize wound healing. Continue current medications. I appreciate being asked to see him again in consultation. <ELECTRONICALLY SIGNED> By: Perry Fitch MD 07/03/17 2211 0811 0946 Perry Fitch MD /nt
--- NOTE | ~2017-07-02 | CNG ---
[facility] [place] [address] CYTO-NONGYN REPORT PROCEDURE Name: LILLIE VALDES Room #: 352-P ADM IN M.R.#: [id number] Admission: 07/02/17 Date of : 32 Discharge: Report #: [id number] Path Case #: [id number] CYTOPATHOLOGY REPORT COLLECTION DATE: 07/14/2017 RECEIVED DATE: 07/16/2017 SUBMITTING PHYS: Dr. Ryan Campos OTHER PHYS: Dr. Ovidio Ryan CLINICAL HISTORY: Pneumonia, Pleural effusions, Anemia, COPD SPECIMEN(S) RECEIVED: A.Pleural fluid * * * * * * * * * * * * FINAL DIAGNOSIS: A. Pleural fluid: - No malignant epithelial cells identified. Reactive mesothelial cells and inflammatory cells present. PATHOLOGIST: Leann Vasquez M.D. REPORT ELECTRONICALLY SIGNED BY: Leann Vasquez M.D. DATE/TIME: 07/17/2017 11:25 * * * * * * * * * * * * GROSS PATHOLOGY: A. Pleural fluid: The specimen is submitted unfixed, labeled "Lillie Valdes". Received by the Cytology Department is 20 mL of clear yellow fluid. One ThinPrep slide and a formalin fixed cell block were was prepared. (mm 07.16.2017) INDUSTRIAL SALES MANAGER(S): DILAN Castillo(ASCP)IAC INITIAL CPT CODE(S): A; 55346, 90413 Professional services performed by [facility] at [facility] [address], [place] [address] Technical services performed by [facility] at [address] [place] [address]., [address], [place] [address]. [facility] [address] [place] [address], [address] [place] [address] PHONE: [phone] [facility] [address] [place] [address] CYTO-NONGYN REPORT PROCEDURE Name: LILLIE VALDES Room #: 352-P ADM IN M.R.#: [id number] Admission: 07/02/17 Date of : 32 Discharge: Report #: [id number] Path Case #: [id number] DIRECTOR: Edgar Mckeon M.D. * * * END OF REPORT * * *
[~2017-07-02 00:21] MED LIST changes: +ASPIRIN EC325 MG PO; +FERROUS SULFAT325 MG PO
[2017-07-02] MEDS ORDERED: CEFDINIR300 MG PO (00:37)
[2017-07-02] MEDS ORDERED: LASIX 40 MG TAB40 M1 PO (00:39)
[2017-07-02] MEDS ORDERED: AZITHROMYCIN 2250 MG PO (00:40)
[2017-07-02 00:52] LABS: ABSOLUTE NEUTROPHILS 12.6 thou/uL (1.4-8.2); BASOPHILS 0.7 % (0.0-2.0); EOSINOPHILS 0.9 % (0.0-3.0); HEMATOCRIT 23.3 % (42.0-52.0); HEMOGLOBIN 7.9 gm/dL (14.0-18.0); LYMPHOCYTES 7.4 % (24.0-44.0); MCH 28.1 pg (26.0-34.0); MCHC 33.7 g/dL (28.0-37.0); MCV 83.4 fL (80.0-100.0); MONOCYTES 5.2 % (1.0-8.0); PLATELET COUNT 379 thou/uL (150-400); POLYS 85.8 % (36.0-66.0); RBC 2.79 mil/uL (4.50-6.00); RDW 18.1 % (10.5-14.5); WBC 14.7 thou/uL (4.0-11.0)
[2017-07-02 01:00] LABS: ANION GAP 9 mmol/L (7-16); BUN 13 mg/dL (7-18); CHLORIDE 101 mmol/L (98-107); CO2 26 mmol/L (21-32); CREATININE 0.9 mg/dL (0.7-1.3); GLUCOSE 171 mg/dL (74-106); POTASSIUM 4.1 mmol/L (3.5-5.1); SODIUM 136 mmol/L (136-145)
[2017-07-02 01:04] LABS: APTT 31.2 Seconds (24.5-32.8); PROTIME 10.4 Seconds (9.3-11.4)
[2017-07-02 01:08] LABS: ALBUMIN 1.7 g/dL (3.4-5.0); MAGNESIUM 1.7 mg/dL (1.8-2.4); SGOT 80 U/L (15-37); SGPT 82 U/L (30-65); TOTAL BILIRUBIN 0.4 mg/dL (<0.1-1.0); TOTAL PROTEIN 6.2 g/dL (6.4-8.2); TROPONIN-I < 0.04 ng/mL (<0.06)
[2017-07-02 01:11] LABS: BE(vivo) 0.5 mmol/L (-2 to +3); HCO3 23.7 mmol/L (22.0-26.0); PCO2 32.1 mmHg (35.0-45.0); PO2 66.5 mmHg (80.0-100.0); pH 7.486 (7.360-7.450); sO2 94.7 % (92.0-98.0)
[2017-07-02 08:12] LABS: URINE BILIRUBIN NEGATIVE (Negative); URINE BLOOD NEGATIVE (Negative); URINE CLARITY CLEAR; URINE COLOR YELLOW; URINE GLUCOSE-RANDOM* NEGATIVE (Negative); URINE KETONES NEGATIVE (Negative); URINE LEUKOCYTES-REFLEX NEGATIVE (Negative); URINE NITRITE-REFLEX NEGATIVE (Negative); URINE PROTEIN (DIPSTICK) NEGATIVE (Negative); URINE SPECIFIC GRAVITY 1.015 (1.005-1.035); URINE UROBILINOGEN 0.2 E.U./dl (0.2-1.0)
[2017-07-02 21:09] LABS: HAV IgM AB (ANTI-HAV IgM) Negative (Negative); HEPATITIS B SURFACE AG Negative (Negative); HEPATITIS C VIRUS AB 0.1 (0.0-0.9)
[2017-07-02 22:13] LABS: HCO3 26.9 mmol/L (22.0-26.0); PCO2 43.3 mmHg (35.0-45.0); PO2 64.4 mmHg (80.0-100.0); pH 7.411 (7.360-7.450); sO2 92.7 % (92.0-98.0)
[2017-07-03 00:30] VITALS: BP 142/75
[2017-07-03 04:43] LABS: ABSOLUTE NEUTROPHILS 12.3 thou/uL (1.4-8.2); BASOPHILS 0.3 % (0.0-2.0); EOSINOPHILS 0.1 % (0.0-3.0); HEMATOCRIT 22.7 % (42.0-52.0); HEMOGLOBIN 7.4 gm/dL (14.0-18.0); LYMPHOCYTES 2.5 % (24.0-44.0); MCH 27.5 pg (26.0-34.0); MCHC 32.8 g/dL (28.0-37.0); PLATELET COUNT 355 thou/uL (150-400); POLYS 96.1 % (36.0-66.0); WBC 12.8 thou/uL (4.0-11.0)
[2017-07-03 05:04] LABS: CALCIUM 8.3 mg/dL (8.5-10.1); CREATININE 0.9 mg/dL (0.7-1.3); POTASSIUM 4.3 mmol/L (3.5-5.1)
[2017-07-03 05:15] VITALS: BP 144/70
[2017-07-03 08:00] VITALS: BP 126/69
[2017-07-03 17:16] VITALS: BP 122/65
[2017-07-03 18:29] LABS: % SATURATION 13 % (20-39); IRON 16 ug/dL (65-175); TIBC 127 ug/dL (250-450)
[2017-07-03 18:56] LABS: FERRITIN 406 ng/mL (26-388)
[2017-07-03 20:05] VITALS: BP 127/64
[2017-07-04 04:15] VITALS: BP 117/61
[2017-07-04 06:41] LABS: HEMATOCRIT 21.1 % (42.0-52.0); MCH 27.5 pg (26.0-34.0); MCHC 33.3 g/dL (28.0-37.0); MCV 82.8 fL (80.0-100.0); RBC 2.55 mil/uL (4.50-6.00); RDW 18.1 % (10.5-14.5); WBC 17.1 thou/uL (4.0-11.0)
[2017-07-04 07:00] VITALS: BP 128/68
[2017-07-04 07:14] LABS: ALBUMIN 1.7 g/dL (3.4-5.0); CALCIUM 8.7 mg/dL (8.5-10.1); POTASSIUM 3.9 mmol/L (3.5-5.1); TOTAL BILIRUBIN 0.4 mg/dL (<0.1-1.0); TOTAL PROTEIN 6.1 g/dL (6.4-8.2)
[2017-07-04 11:05] VITALS: BP 123/57
[2017-07-04 15:08] VITALS: BP 114/68
[2017-07-04 20:01] VITALS: BP 114/66
[2017-07-05 04:10] VITALS: BP 119/63
[2017-07-05 05:26] LABS: BASOPHILS 0.1 % (0.0-2.0); RBC 2.31 mil/uL (4.50-6.00)
[2017-07-05 05:29] LABS: ABSOLUTE NEUTROPHILS 10.7 thou/uL (1.4-8.2); LYMPHOCYTES 4.6 % (24.0-44.0); MCH 27.5 pg (26.0-34.0); MCHC 32.9 g/dL (28.0-37.0); MCV 83.7 fL (80.0-100.0); MONOCYTES 3.9 % (1.0-8.0); PLATELET COUNT 398 thou/uL (150-400); POLYS 91.4 % (36.0-66.0); WBC 11.7 thou/uL (4.0-11.0)
[2017-07-05 05:36] LABS: HEMATOCRIT 19.3 % (42.0-52.0); HEMOGLOBIN 6.4 gm/dL (14.0-18.0)
[2017-07-05 05:44] LABS: CALCIUM 8.2 mg/dL (8.5-10.1); POTASSIUM 3.7 mmol/L (3.5-5.1)
[2017-07-05 07:49] VITALS: BP 122/70; BP 125/68
[2017-07-05 08:07] LABS: PROTIME 10.2 Seconds (9.3-11.4)
[2017-07-05 08:39] VITALS: BP 127/69
[2017-07-05 13:41] LABS: CALCIUM 8.1 mg/dL (8.5-10.1); PHOSPHORUS 4.1 mg/dL (2.5-4.9)
[2017-07-05 14:13] LABS: AMIODARONE 1.5 ug/mL (1.0-2.5); DES-AMIODARONE 1.2 ug/mL (1.0-2.5)
[2017-07-05 15:22] LABS: CLARITY CLOUDY; COLOR AMBER; SOURCE LEFT CHEST; TOTAL VOLUME 53 mL
[2017-07-05 15:41] LABS: BF NUCLEATED CELLS 500; BF RBC 4206
[2017-07-05 16:02] LABS: BF MACROPHAGE 7; BF NEUTROPHILS 91
[2017-07-05 16:12] VITALS: BP 118/68
[2017-07-05 20:33] VITALS: BP 119/75
[2017-07-05 21:53] LABS: ABSOLUTE RETIC COUNT 0.0818 10^6/uL; OBSERVED RETIC COUNT 2.81 % (0.6-2.6)
[2017-07-06 03:33] LABS: ABSOLUTE NEUTROPHILS 8.1 thou/uL (1.4-8.2); HEMOGLOBIN 7.5 gm/dL (14.0-18.0); LYMPHOCYTES 5.6 % (24.0-44.0); MCH 28.5 pg (26.0-34.0); MCHC 34.1 g/dL (28.0-37.0); MCV 83.6 fL (80.0-100.0); MONOCYTES 3.3 % (1.0-8.0); PLATELET COUNT 377 thou/uL (150-400); POLYS 91.1 % (36.0-66.0); RBC 2.63 mil/uL (4.50-6.00); RDW 17.6 % (10.5-14.5); WBC 8.9 thou/uL (4.0-11.0)
[2017-07-06 03:38] LABS: CREATININE 1.1 mg/dL (0.7-1.3); POTASSIUM 3.6 mmol/L (3.5-5.1)
[2017-07-06 04:00] VITALS: BP 134/72
[2017-07-06 11:45] VITALS: BP 130/74
[2017-07-06 12:07] LABS: BODY FLUID ALBUMIN 0.7 g/dL (()); BODY FLUID AMYLASE 11 U/L (()); BODY FLUID GLUCOSE 113 mg/dL (()); BODY FLUID LDH 242 IU/L (())
[2017-07-06 15:36] VITALS: BP 123/62
[2017-07-06 19:21] VITALS: BP 123/66
[2017-07-07 03:54] LABS: ABSOLUTE NEUTROPHILS 13.7 thou/uL (1.4-8.2); BASOPHILS 0.2 % (0.0-2.0); HEMATOCRIT 21.5 % (42.0-52.0); HEMOGLOBIN 7.4 gm/dL (14.0-18.0); LYMPHOCYTES 4.1 % (24.0-44.0); MCH 28.8 pg (26.0-34.0); MCHC 34.4 g/dL (28.0-37.0); MCV 83.7 fL (80.0-100.0); MONOCYTES 5.1 % (1.0-8.0); PLATELET COUNT 362 thou/uL (150-400); POLYS 90.6 % (36.0-66.0); RBC 2.57 mil/uL (4.50-6.00); RDW 17.1 % (10.5-14.5); WBC 15.1 thou/uL (4.0-11.0)
[2017-07-07 03:58] LABS: CALCIUM 8.1 mg/dL (8.5-10.1); POTASSIUM 3.5 mmol/L (3.5-5.1)
[2017-07-07 04:13] VITALS: BP 144/86
[2017-07-07 08:01] VITALS: BP 156/79
[2017-07-07 11:36] VITALS: BP 144/75
[2017-07-07 16:30] VITALS: BP 122/64
[2017-07-07 19:27] VITALS: BP 141/82
[2017-07-08 03:38] VITALS: BP 148/82
[2017-07-08 03:43] LABS: HEMATOCRIT 21.6 % (42.0-52.0); HEMOGLOBIN 7.3 gm/dL (14.0-18.0); MCH 28.5 pg (26.0-34.0); MCHC 33.9 g/dL (28.0-37.0); RBC 2.58 mil/uL (4.50-6.00); RDW 17.7 % (10.5-14.5); WBC 13.1 thou/uL (4.0-11.0)
[2017-07-08 04:06] LABS: ALBUMIN 1.6 g/dL (3.4-5.0); CALCIUM 8.1 mg/dL (8.5-10.1); CREATININE 0.9 mg/dL (0.7-1.3); PHOSPHORUS 2.3 mg/dL (2.5-4.9); POTASSIUM 3.6 mmol/L (3.5-5.1)
[2017-07-08 20:05] VITALS: BP 131/78
[2017-07-09 04:05] VITALS: BP 138/73
[2017-07-09 04:40] LABS: HEMATOCRIT 23.1 % (42.0-52.0); HEMOGLOBIN 7.7 gm/dL (14.0-18.0); MCH 27.9 pg (26.0-34.0); MCHC 33.1 g/dL (28.0-37.0); MCV 84.3 fL (80.0-100.0); RBC 2.74 mil/uL (4.50-6.00); RDW 17.9 % (10.5-14.5); WBC 13.6 thou/uL (4.0-11.0)
[2017-07-09 05:13] LABS: ALBUMIN 1.6 g/dL (3.4-5.0); CALCIUM 7.9 mg/dL (8.5-10.1); CREATININE 0.8 mg/dL (0.7-1.3); POTASSIUM 3.3 mmol/L (3.5-5.1); TOTAL BILIRUBIN 0.4 mg/dL (<0.1-1.0); TOTAL PROTEIN 5.2 g/dL (6.4-8.2)
[2017-07-09 08:30] VITALS: BP 131/83
[2017-07-09 15:11] LABS: ANTI-DNA SCREEN <1 IU/mL (0-9); ANTI-RNP 0.2 AI (0.0-0.9)
[2017-07-09 20:24] VITALS: BP 132/76
[2017-07-10 03:30] VITALS: BP 126/70
[2017-07-10 05:51] LABS: ABSOLUTE NEUTROPHILS 7.6 thou/uL (1.4-8.2); BASOPHILS 0.1 % (0.0-2.0); HEMOGLOBIN 8.1 gm/dL (14.0-18.0); LYMPHOCYTES 4.6 % (24.0-44.0); MCH 28.4 pg (26.0-34.0); MCHC 33.6 g/dL (28.0-37.0); MCV 84.6 fL (80.0-100.0); MONOCYTES 1.8 % (1.0-8.0); PLATELET COUNT 336 thou/uL (150-400); POLYS 93.5 % (36.0-66.0); RBC 2.84 mil/uL (4.50-6.00); WBC 8.1 thou/uL (4.0-11.0)
[2017-07-10 06:02] LABS: CALCIUM 7.8 mg/dL (8.5-10.1); POTASSIUM 3.6 mmol/L (3.5-5.1)
[2017-07-10 08:37] VITALS: BP 128/67
[2017-07-10 13:19] VITALS: BP 120/60
[2017-07-10 13:22] VITALS: BP 120/60
[2017-07-10 15:53] VITALS: BP 135/72
[2017-07-10 20:00] VITALS: BP 114/76
[2017-07-11 04:00] VITALS: BP 123/76
[2017-07-11 05:57] LABS: HEMATOCRIT 23.8 % (42.0-52.0); HEMOGLOBIN 8.2 gm/dL (14.0-18.0); MCH 29.1 pg (26.0-34.0); MCHC 34.5 g/dL (28.0-37.0); MCV 84.3 fL (80.0-100.0); RBC 2.82 mil/uL (4.50-6.00); RDW 18.7 % (10.5-14.5); WBC 12.8 thou/uL (4.0-11.0)
[2017-07-11 06:04] LABS: CREATININE 0.9 mg/dL (0.7-1.3)
[2017-07-11 06:11] LABS: POTASSIUM 2.9 mmol/L (3.5-5.1)
[2017-07-11 07:21] VITALS: BP 110/70
[2017-07-11 11:17] LABS: CALCIUM 7.9 mg/dL (8.5-10.1); CREATININE 1.1 mg/dL (0.7-1.3); POTASSIUM 3.1 mmol/L (3.5-5.1)
[2017-07-11 16:00] VITALS: BP 129/66
[2017-07-11 19:37] VITALS: BP 130/67
[2017-07-12 03:52] VITALS: BP 131/73
[2017-07-12 08:59] VITALS: BP 129/74
[2017-07-12 11:53] VITALS: BP 131/72
[2017-07-12 17:35] VITALS: BP 132/85
[2017-07-12 19:26] VITALS: BP 145/77
[2017-07-13 03:21] VITALS: BP 139/73
[2017-07-13 06:46] LABS: HEMATOCRIT 24.9 % (42.0-52.0); HEMOGLOBIN 8.3 gm/dL (14.0-18.0); MCH 28.1 pg (26.0-34.0); MCHC 33.3 g/dL (28.0-37.0); MCV 84.4 fL (80.0-100.0); RBC 2.95 mil/uL (4.50-6.00); RDW 19.1 % (10.5-14.5); WBC 17.2 thou/uL (4.0-11.0)
[2017-07-13 07:10] LABS: ALBUMIN 1.8 g/dL (3.4-5.0); CALCIUM 8.2 mg/dL (8.5-10.1); PHOSPHORUS 2.9 mg/dL (2.5-4.9); POTASSIUM 3.3 mmol/L (3.5-5.1)
[2017-07-13 07:49] VITALS: BP 134/85
[2017-07-13 11:38] VITALS: BP 106/67
[2017-07-13 12:00] VITALS: BP 106/67
[2017-07-13] MEDS ORDERED: PACERONE 200 M200 M1 PO (12:51)
[2017-07-13] MEDS ORDERED: PREDNISONE 10 M10 MG PO (12:51)
[2017-07-13] MEDS ORDERED: AUGMENTIN 875-1 EACH PO (12:51)
[2017-07-13] MEDS ORDERED: DOXYCYCLINE 10100 MG PO (12:51)
[2017-07-13 16:09] VITALS: BP 134/72
[2017-07-13 20:00] VITALS: BP 123/74
[2017-07-14 04:00] VITALS: BP 122/66
[2017-07-14 06:56] LABS: APTT 27.5 Seconds (24.5-32.8); PROTIME 10.6 Seconds (9.3-11.4)
[2017-07-14 08:03] VITALS: BP 137/64
[2017-07-14 08:57] LABS: CALCIUM 7.7 mg/dL (8.5-10.1); MAGNESIUM 1.6 mg/dL (1.8-2.4); POTASSIUM 3.1 mmol/L (3.5-5.1)
[2017-07-14 10:37] LABS: CLARITY CLEAR; COLOR YELLOW; SOURCE LEFT CHEST; TOTAL VOLUME 60 mL
[2017-07-14 11:08] LABS: BF NUCLEATED CELLS 34; BF RBC 156
[2017-07-14 11:33] LABS: SOURCE CHEST
[2017-07-14 12:24] LABS: BF COMMENTS MONOCYTES 4; BF MACROPHAGE 28; BF NEUTROPHILS 31
[2017-07-14 14:31] LABS: MAGNESIUM 1.7 mg/dL (1.8-2.4); POTASSIUM 3.4 mmol/L (3.5-5.1)
[2017-07-14 15:50] VITALS: BP 141/69
[2017-07-14 18:54] LABS: MAGNESIUM 1.6 mg/dL (1.8-2.4); POTASSIUM 3.8 mmol/L (3.5-5.1)
[2017-07-14 19:50] VITALS: BP 149/68
[2017-07-15 07:12] LABS: CALCIUM 7.6 mg/dL (8.5-10.1); CREATININE 0.9 mg/dL (0.7-1.3); POTASSIUM 3.5 mmol/L (3.5-5.1)
[2017-07-15 08:00] VITALS: BP 135/67
[2017-07-15 12:00] VITALS: BP 128/62
[2017-07-15 13:08] LABS: BODY FLUID ALBUMIN 0.7 g/dL (()); BODY FLUID AMYLASE 7 U/L (()); BODY FLUID GLUCOSE 161 mg/dL (()); BODY FLUID LDH 105 IU/L (()); BODY FLUID PROTEIN 1.4 g/dL (())
[2017-07-15 14:06] LABS: MAGNESIUM 1.8 mg/dL (1.8-2.4)
[2017-07-15 16:00] VITALS: BP 130/60
[2017-07-15 19:26] VITALS: BP 135/69
[2017-07-16 04:20] VITALS: BP 141/71
[2017-07-16 05:46] LABS: ABSOLUTE NEUTROPHILS 16.6 thou/uL (1.4-8.2); BASOPHILS 0.5 % (0.0-2.0); EOSINOPHILS 0.1 % (0.0-3.0); HEMATOCRIT 22.9 % (42.0-52.0); HEMOGLOBIN 7.6 gm/dL (14.0-18.0); LYMPHOCYTES 3.3 % (24.0-44.0); MCH 28.2 pg (26.0-34.0); MCHC 33.1 g/dL (28.0-37.0); MCV 85.1 fL (80.0-100.0); MONOCYTES 2.6 % (1.0-8.0); PLATELET COUNT 212 thou/uL (150-400); POLYS 93.5 % (36.0-66.0); RBC 2.69 mil/uL (4.50-6.00); RDW 20.1 % (10.5-14.5); WBC 17.8 thou/uL (4.0-11.0)
[2017-07-16 05:58] LABS: CALCIUM 7.6 mg/dL (8.5-10.1); CREATININE 0.8 mg/dL (0.7-1.3); POTASSIUM 3.7 mmol/L (3.5-5.1)
[2017-07-16 07:20] VITALS: BP 129/73
[2017-07-16 11:16] VITALS: BP 120/62
[2017-07-16 16:13] VITALS: BP 116/81
[2017-07-16 20:00] VITALS: BP 103/72
[2017-07-17 04:00] VITALS: BP 126/63
[2017-07-17 06:38] LABS: MAGNESIUM 1.9 mg/dL (1.8-2.4)
[2017-07-17 08:20] VITALS: BP 139/69
[2017-07-17 12:04] VITALS: BP 115/60
== END 2017-07-17 14:37 | DRG 853 ==
LOC: ER 00:21 → EROBS 01:22 → 3W 01:22
PROVIDERS: Emergency Medicine; Hospitalist; Internal Medicine; Internal Medicine Endocrinology, Diabetes & Metabolism; Internal Medicine Geriatric Medicine; Internal Medicine Pulmonary Disease; Nurse Practitioner Acute Care; Registered Nurse
PROC: 0W993ZZ Drainage of Right Pleural Cavity, Percutaneous Approach (ICD-10-PCS; principal; 2017-07-05)
PROC: 30233N1 Transfusion of Nonautologous Red Blood Cells into Peripheral Vein, Percutaneous Approach (ICD-10-PCS; 2017-07-05)
PROC: 0B9F8ZX Drainage of Right Lower Lung Lobe, Via Natural or Artificial Opening Endoscopic, Diagnostic (ICD-10-PCS; 2017-07-11)
PROC: 0W9B3ZZ Drainage of Left Pleural Cavity, Percutaneous Approach (ICD-10-PCS; 2017-07-14)
DX: A41.9 Sepsis, unspecified organism (principal); J69.0 Pneumonitis due to inhalation of food and vomit; J96.21 Acute and chronic respiratory failure with hypoxia; J90 Pleural effusion, not elsewhere classified; E44.0 Moderate protein-calorie malnutrition; G72.81 Critical illness myopathy; E78.5 Hyperlipidemia, unspecified; J44.9 Chronic obstructive pulmonary disease, unspecified; D64.9 Anemia, unspecified; F17.210 Nicotine dependence, cigarettes, uncomplicated; I48.0 Paroxysmal atrial fibrillation; R74.0 Nonspecific elevation of levels of transaminase and lactic acid dehydrogenase [LDH]; E83.42 Hypomagnesemia; F10.10 Alcohol abuse, uncomplicated; E87.6 Hypokalemia; Z96.643 Presence of artificial hip joint, bilateral; Z90.49 Acquired absence of other specified parts of digestive tract; Z68.23 Body mass index [BMI] 23.0-23.9, adult; Z79.899 Other long term (current) drug therapy; Z80.52 Family history of malignant neoplasm of bladder; Z28.21 Immunization not carried out because of patient refusal
CPT/HCPCS: 10879

== ENCOUNTER → 2017-07-24 | Outpatient (CLI) | payer OTHER ==
[~2017-07-24] MED LIST changes: +AUGMENTIN 875-1 EACH PO; +AZITHROMYCIN 2250 MG PO; +CEFDINIR300 MG PO; +DOXYCYCLINE 10100 MG PO; +LASIX 40 MG TAB40 M1 PO; +PREDNISONE 10 M10 MG PO; +PROCRIT20000 UNIT SUBQ
[2017-07-24 10:06] VITALS: BP 101/59; BP 112/64
[2017-07-24 12:37] VITALS: BP 112/64; BP 122/64; BP 93/66
== END ==
LOC: OPONC 07-23 14:02
DX: D64.9 Anemia, unspecified (principal)
CPT/HCPCS: 91030; 95113

== ENCOUNTER 2017-08-07 10:41 | Inpatient (IN) | payer OTHER ==
[~2017-08-07] VITALS: Ht 165.1 cm; Wt 66.4 kg
--- NOTE | ~2017-08-07 | EKG ---
[address] [place] [address] ELECTROCARDIOGRAM REPORT Name: LILLIE VALDES Room #: 363-P ADM IN M.R.#: [id number] Admission: 08/07/17 Attend Phys: Jean-Claude Cosme MD Discharge: Date of : 32 Report #: [id number] THIS REPORT FOR: //name// [facility] ED Test Date: 2017-08-07 Test Time: 11:54:06 Pat Name: LILLIE VALDES Department: Room: 363 Gender: M [employer]: JANY : 1930 Requested By: Sheridan Moreno Order Number: [id number] MD: Kurtis Tadeo Measurements Intervals [place] Rate: 75 P: 0 OK: 148 QRS: 27 QRSD: 114 T: 72 QT: 442 QTc: 494 Interpretive Statements Sinus rhythm Septal infarct, age indeterminate Low voltage, extremity leads Borderline prolonged QT interval Baseline wander in lead(s) V6 Compared to ECG 07/02/2017 00:31:31 No significant changes Electronically Signed On 08-07-2017 19:28:07 CDT by Kurtis Tadeo [email or web address] <ELECTRONICALLY SIGNED> By: Kurtis Tadeo MD, FACC 08/07/17 1928 1154 1154 Kurtis Tadeo MD, [facility] /EPI
--- NOTE | ~2017-08-07 | HC ---
[facility] [place] [address] CONSULTATION Name: LILLIE VALDES Room #: 363-P ADM IN M.R.#: [id number] Admission: 08/07/17 Attend Phys: Jean-Claude Cosme MD Discharge: Date of : 31 Report #: [id number] THIS REPORT FOR: //name// CC: Jean-Claude Cosme HISTORY OF PRESENT ILLNESS: The patient has been admitted emergently for increasing shortness of breath related to pneumonia. He also is anemic and was seen recently at Dr. Doe's office and scheduled to receive an infusion of INFeD. He has been on oral iron with no benefit. He denies any shaking chills or fevers. He is unaware of any overt blood loss. PAST MEDICAL HISTORY: Significant for chronic obstructive pulmonary disease. ALLERGIES: He has no known allergies. MEDICATIONS: As listed on the MFR. SOCIAL HISTORY: Positive for being reformed smoker and a drinker. FAMILY HISTORY: Positive for his mother dying of bladder cancer. REVIEW OF SYSTEMS: As in the history of present illness. PHYSICAL EXAMINATION: GENERAL: Shows an alert, elderly white male, who is sitting up in bed. VITAL SIGNS: Currently afebrile. NECK: Supple. CHEST: Clear. CARDIOVASCULAR: Normal S1, S2. ABDOMEN: No organomegaly or masses. EXTREMITIES: No clubbing, cyanosis or edema. SKIN: Normal turgor. NEUROLOGIC: No focal localizing signs. PSYCHIATRIC: Not agitated or confused. LYMPHATICS: No suspicious palpable adenopathy. LABORATORY STUDIES: Here on admission showed hemoglobin of 8.1, with normochromic normocytic indices. ASSESSMENT: Ongoing anemia in spite of oral iron. PLAN: Evidently parenteral iron was not administered during his last hospitalization. We will try to get this approved to be given now while here. He also may have an element of anemia of chronic disease, which could be evaluated with an erythropoietin level, and we will make sure he has also had a protein electrophoresis performed as part of his earlier evaluation. [address] [address] CONSULTATION Name: LILLIE VALDES Room #: 363-P ADM IN .R.#: [id number] Admission: 08/07/17 Attend Phys: Jean-Claude Cosme MD Discharge: Date of : 31 Report #: [id number] Nader is currently on vacation. We will continue to follow him for response. Thanks for notifying us of his hospitalization, allowing us to participate in his care. <ELECTRONICALLY SIGNED> By: Autumn Patel MD 08/10/17 0906 1610 1728 Autumn Patel MD /nt
[~2017-08-07 10:41] MED LIST changes: -PROCRIT20000 UNIT SUBQ
[2017-08-07 10:53] VITALS: BP 112/92
[2017-08-07 11:19] LABS: BE(vivo) 5.4 mmol/L (-2 to +3); HCO3 28.8 mmol/L (22.0-26.0); PCO2 37.3 mmHg (35.0-45.0); PO2 47.2 mmHg (80.0-100.0); pH 7.506 (7.360-7.450)
[2017-08-07 11:57] LABS: ABSOLUTE NEUTROPHILS 5.8 thou/uL (1.4-8.2); BASOPHILS 0.3 % (0.0-2.0); EOSINOPHILS 0.8 % (0.0-3.0); HEMATOCRIT 23.9 % (42.0-52.0); HEMOGLOBIN 8.1 gm/dL (14.0-18.0); MCH 29.6 pg (26.0-34.0); MCHC 33.9 g/dL (28.0-37.0); MCV 87.3 fL (80.0-100.0); MONOCYTES 7.1 % (1.0-8.0); PLATELET COUNT 213 thou/uL (150-400); POLYS 78.8 % (36.0-66.0); RBC 2.74 mil/uL (4.50-6.00); RDW 19.9 % (10.5-14.5); WBC 7.3 thou/uL (4.0-11.0)
[2017-08-07 12:04] LABS: CALCIUM 7.9 mg/dL (8.5-10.1); CREATININE 0.9 mg/dL (0.7-1.3); POTASSIUM 3.3 mmol/L (3.5-5.1)
[2017-08-07 13:29] LABS: BE(vivo) 10.4 mmol/L (-2 to +3); HCO3 33.4 mmol/L (22.0-26.0); PCO2 38.3 mmHg (35.0-45.0); PO2 66.1 mmHg (80.0-100.0); pH 7.559 (7.360-7.450); sO2 95.3 % (92.0-98.0)
[2017-08-07 13:40] VITALS: BP 112/92
[2017-08-07 14:54] VITALS: BP 119/39
[2017-08-07 15:38] VITALS: BP 107/60
[2017-08-07 19:30] VITALS: BP 101/56
[2017-08-07 23:10] VITALS: BP 113/62
[2017-08-08 04:35] VITALS: BP 114/59
[2017-08-08 07:45] VITALS: BP 126/88
[2017-08-08 10:50] VITALS: BP 127/69
[2017-08-08 15:07] VITALS: BP 118/66
[2017-08-08 19:05] VITALS: BP 117/65
[2017-08-09 01:58] LABS: CALCIUM 7.6 mg/dL (8.5-10.1); CREATININE 0.7 mg/dL (0.7-1.3); POTASSIUM 3.7 mmol/L (3.5-5.1)
[2017-08-09 03:45] VITALS: BP 112/68
[2017-08-09 08:13] LABS: HEMATOCRIT 21.8 % (42.0-52.0); HEMOGLOBIN 7.5 gm/dL (14.0-18.0); MCH 29.8 pg (26.0-34.0); MCHC 34.3 g/dL (28.0-37.0); MCV 86.9 fL (80.0-100.0); RBC 2.5 mil/uL (4.50-6.00); RDW 20.3 % (10.5-14.5); WBC 9.6 thou/uL (4.0-11.0)
[2017-08-09 08:38] VITALS: BP 120/72
[2017-08-09 11:50] VITALS: BP 142/82
[2017-08-09 16:10] VITALS: BP 139/67
[2017-08-09 19:50] VITALS: BP 131/59
[2017-08-10 03:00] VITALS: BP 122/66
[2017-08-10 06:37] LABS: CALCIUM 7.6 mg/dL (8.5-10.1); CREATININE 0.7 mg/dL (0.7-1.3); POTASSIUM 4.3 mmol/L (3.5-5.1)
[2017-08-10 07:31] VITALS: BP 132/69
[2017-08-10 08:17] LABS: PROTIME 10.6 Seconds (9.3-11.4)
[2017-08-10 11:30] VITALS: BP 148/73
[2017-08-10 15:55] VITALS: BP 113/60
[2017-08-10 19:15] VITALS: BP 93/47
[2017-08-11] VITALS: BP 105/54
[2017-08-11 04:15] VITALS: BP 120/62
[2017-08-11 06:00] LABS: CALCIUM 7.9 mg/dL (8.5-10.1); CREATININE 0.7 mg/dL (0.7-1.3); POTASSIUM 4.8 mmol/L (3.5-5.1)
[2017-08-11 08:04] VITALS: BP 133/67
[2017-08-11 11:17] VITALS: BP 117/67
[2017-08-11 15:53] VITALS: BP 108/61
[2017-08-11 19:49] VITALS: BP 118/68
[2017-08-12 03:39] VITALS: BP 124/71
[2017-08-12 08:00] VITALS: BP 126/73
[2017-08-12 10:59] LABS: HEMATOCRIT 21.9 % (42.0-52.0); HEMOGLOBIN 7.4 gm/dL (14.0-18.0); MCV 88.2 fL (80.0-100.0); RBC 2.48 mil/uL (4.50-6.00); RDW 20.5 % (10.5-14.5); WBC 15.6 thou/uL (4.0-11.0)
[2017-08-12 11:08] LABS: CALCIUM 8.8 mg/dL (8.5-10.1); POTASSIUM 4.1 mmol/L (3.5-5.1)
[2017-08-12 11:49] VITALS: BP 107/65
[2017-08-12 15:36] VITALS: BP 121/64
[2017-08-12 19:30] VITALS: BP 120/68
[2017-08-13 04:20] VITALS: BP 122/66
[2017-08-13 08:00] VITALS: BP 120/62
[2017-08-13 08:25] VITALS: BP 120/62
[2017-08-13] MEDS ORDERED: AUGMENTIN 875-1 EACH PO (10:35)
== END 2017-08-13 14:25 | DRG 177 ==
LOC: ER 10:41 → EROBS 13:02 → 3W 13:02
PROVIDERS: Emergency Medicine; Family Medicine; Internal Medicine Pulmonary Disease
PROC: 0W9B3ZX Drainage of Left Pleural Cavity, Percutaneous Approach, Diagnostic (ICD-10-PCS; principal; 2017-08-10)
DX: J69.0 Pneumonitis due to inhalation of food and vomit (principal); J96.21 Acute and chronic respiratory failure with hypoxia; J90 Pleural effusion, not elsewhere classified; E46 Unspecified protein-calorie malnutrition; B37.0 Candidal stomatitis; J44.0 Chronic obstructive pulmonary disease with (acute) lower respiratory infection; K21.9 Gastro-esophageal reflux disease without esophagitis; Z96.642 Presence of left artificial hip joint; D50.9 Iron deficiency anemia, unspecified; E87.6 Hypokalemia; I11.0 Hypertensive heart disease with heart failure; Y95 Nosocomial condition; I48.2 Chronic atrial fibrillation; D72.829 Elevated white blood cell count, unspecified; I50.9 Heart failure, unspecified; E55.9 Vitamin D deficiency, unspecified; Z68.24 Body mass index [BMI] 24.0-24.9, adult; Z90.49 Acquired absence of other specified parts of digestive tract; Z87.891 Personal history of nicotine dependence; Z80.52 Family history of malignant neoplasm of bladder; Z79.82 Long term (current) use of aspirin; Z79.899 Other long term (current) drug therapy
CPT/HCPCS: 10879

== ENCOUNTER 2017-08-20 08:58 | Inpatient (IN) | payer OTHER ==
[~2017-08-20] VITALS: Ht 172.7 cm; Wt 56.1 kg
[2017-08-20] VITALS (8 sets, daily range): BP systolic 101–114; BP diastolic 53–70
--- NOTE | ~2017-08-20 | S ---
[facility] [place] [address] SURGICAL PATH RPT PROCEDURE Name: LILLIE VALDES Room #: 204-P ADM IN M.R.#: [id number] Admission: 08/20/17 Date of : 32 Discharge: Report #: [id number] Path Case #: [id number] PATHOLOGY REPORT COLLECTION DATE: 08/24/2017 RECEIVED DATE: 08/24/2017 SUBMITTING PHYS: Dr. Lobo Doe OTHER PHYS: Dr. Jean-Claude Cosme SPECIMEN(S) RECEIVED: A.Bone marrow, biopsy B.Bone marrow, clot and/or particle prep C.Bone marrow, aspirate smears D.Peripheral smear * * * * * * * * * * * * FINAL DIAGNOSIS: Bone marrow aspirate, biopsy, cell clot and peripheral blood: - Peripheral blood with severe normocytic anemia and mild neutrophilia. - Mildly hypercellular bone marrow with trilineage hematopoiesis, mild erythroid hyperplasia, mild to moderate dyserythropoiesis and no evidence of lymphoma or acute leukemia. (See comment) COMMENT: Overall, the bone marrow is mildly hypercellular for the patient's age with trilineage hematopoiesis, mild erythroid hyperplasia, mild to moderate dyserythropoiesis and no evidence of lymphoma or acute leukemia. The dyspoiesis may be related to a low grade myelodysplastic syndrome; however, it does not meet the strict morphologic criteria for myelodysplasia. Correlation with clinical history, additional laboratory data and cytogenetics is required. (CLW:amber; 08/28/2017) PATHOLOGIST: Sheba L. Karime, M.D. REPORT ELECTRONICALLY SIGNED BY: Sheba Schaffer M.D. DATE/TIME: 08/28/2017 22:12 * * * * * * * * * * * * MICROSCOPIC DESCRIPTION: CBC Data (08/24/17): WBC 9,900 /uL, RBC 2.21, hemoglobin 6.8 g/dL, hematocrit 20.2%, MCV 91.1 fL, MCH 30.8 pg, MCHC 33.8 g/dL, RDW 21.7%, and platelet count 284,000 /uL. Manual white blood cell differential: segs 92%, lymphs 3%, monos 2%, and eos 3%. Peripheral Blood Smear: Cytomorphological examination of the Marcus's stained peripheral blood smear confirms the provided data. Red blood cells show severe [facility] [address] [place] [address] SURGICAL PATH RPT PROCEDURE Name: LILLIE VALDES Room #: 204-P ADM IN M.R.#: [id number] Admission: 08/20/17 Date of : 32 Discharge: Report #: [id number] Path Case #: [id number] normocytic anemia with mild to moderate anisocytosis. No significant poikilocytosis is identified. No schistocytes or microspherocytes are seen. White blood cells are predominantly segmented neutrophils and have focal mild dyspoietic changes including abnormal nuclear lobation. There is no significant left shift. Rare lymphocytes are predominantly small, round and mature appearing with condensed chromatin and scant cytoplasm with admixed large granular lymphocytes and reactive appearing lymphocytes. Monocytes are mature. Platelets are adequate in number and mainly normal in morphology with rare larger platelets noted. Aspirate Smears: Cytomorphological examination of the Macrus's stained aspirate smears shows spicules present. The overall cellularity is approximately 40-50%. The myeloid to erythroid ratio is 2:1. Full myeloid maturation is identified and is without significant dyspoiesis. Erythroid maturation is mild to moderately dyspoietic with irregular nuclear contours, binucleate forms and basophilic stippling. In a 500 cell differential, there are less than 1% blasts (no Jose David rods are seen), 63% more differentiated myeloids, 26% erythroid precursors, 10% lymphocytes and 1% plasma cells. Megakaryocytes are proportional in number and both normal and abnormal in morphology with variable sizes and nuclear abnormalities. No lymphoid aggregates or markedly atypical lymphoid cells are seen. Plasma cells are without atypia. Iron stain of the aspirate smear shows 1/4+ iron positivity with spicules present. A rare possible ring sideroblast is identified. Core Biopsy and Cell Clot: The decalcified bone marrow core biopsy is adequate. The bone marrow is mildly hypercellular with an overall cellularity of approximately 40-50%. The myeloid to erythroid ratio is 1-2:1. Myeloid maturation is without significant dyspoiesis. Erythroid maturation is mildly dyserythropoietic. Megakaryocytes are normal in number and both normal and abnormal in morphology. No lymphoid aggregates or markedly atypical lymphoid cells are seen. Bony trabeculae and blood vessels are unremarkable. The cell clot has spicules present that are similar in cellularity and differential morphology as previously described. Iron stain of the cell clot (Blocks B1 and B2) show 2/4+ iron positivity with spicules present. Flow Cytometry: Flow cytometric immunophenotypic analysis was performed at [facility]. The diagnosis is "1 - Slight CD56 expression detected on myeloid and monocytic cells, 2 - No increased blasts detected, 3 - No abnormal T-cell and B-cell populations identified." There are 7.5% lymphocytes. Of the lymphocytes, there are 71% T-cells with a CD4/CD8 ratio of 1.9 and no aberrant T-cell antigen expression and 7% polyclonal B-cells (kappa lambda ratio of 2.7). There are 18% NK cells that are unremarkable. Monocytes and granulocytes show phenotypic evidence of maturation and [facility] and [facility] [place] [address] SURGICAL PATH RPT PROCEDURE Name: LILLIE VALDES Room #: 204-P ADM IN M.R.#: [id number] Admission: 08/20/17 Date of : 32 Discharge: Report #: [id number] Path Case #: [id number] slight aberrant expression of CD56, respectively. There are 0.9% CD34 positive cells (blasts) and less than 0.1% precursor B-cells. There is no evidence of acute leukemia, non-Hodgkin lymphoma or increased plasma cells detected in this analysis. There is no expansion of blast population. Myeloid and monocytic cells show a mild aberrant expression of CD56. Myeloid expression of CD56 may be seen with myeloid disease or reactive conditions. Please see separate flow cytometry report from [facility] ([id number]). Cytogenetics Analysis: Cytogenetic chromosomal analysis is pending at [facility] ([id number]). GROSS PATHOLOGY: A. Received in 10% formalin labeled "Lillie Valdes, BM biopsy," are 2 needle cores of velez bone, ranging from 0.8 to 1.2 cm in length and 0.2 cm in diameter. The specimen is submitted entirely in cassette A1, following decalcification. B. Received in 10% formalin labeled "Lillie Valdes, BM aspirate (clot)," is blood coagulum, measuring 5.9 x 3.3 x 0.4 cm in aggregate dimensions. The specimen is submitted entirely in cassette B1 and B2. (TSD; 08/24/2017) CLINICAL HISTORY: Anemia 86 year old man with anemia. INITIAL CPT CODE(S): A; 01871, 61373 B; 38651, 89379, 72769 C; 54226, 69238 D; 16812 Professional services performed by [facility] at [facility] [address], [place] [address] Technical services performed by [facility] at [address] [place] [address], [address], [place] [address]. [facility] [address] [place] [address] PHONE: [phone] DIRECTOR: Edgar Mckeon M.D. * * * END OF REPORT * * *
--- NOTE | ~2017-08-20 | CNG ---
[facility] [place] [address] CYTO-NONGYN REPORT PROCEDURE Name: LILLIE VALDES Room #: 204-P ADM IN M.R.#: [id number] Admission: 08/20/17 Date of : 32 Discharge: Report #: [id number] Path Case #: [id number] CYTOPATHOLOGY REPORT COLLECTION DATE: 08/21/2017 RECEIVED DATE: 08/21/2017 SUBMITTING PHYS: Dr. Ovidio Ryan OTHER PHYS: Dr. Jean-Claude Cosme CLINICAL HISTORY: Hypoxemia, HCAP, Anemia SPECIMEN(S) RECEIVED: A.Bronchoalveolar lavage,RLL * * * * * * * * * * * * FINAL DIAGNOSIS: A. Lung, RLL, Bronchoalveolar lavage: - No malignant cells identified. Pulmonary macrophages and acute inflammatory cells identified. PATHOLOGIST: Leann Vasquez M.D. REPORT ELECTRONICALLY SIGNED BY: Leann Vasquez M.D. DATE/TIME: 08/22/2017 13:43 * * * * * * * * * * * * GROSS PATHOLOGY: A. Bronchoalveolar lavage,RLL: The specimen is submitted unfixed, labeled "Lillie Valdes". Received by the Cytology Department is ten mL of cloudy colorless fluid. One ThinPrep slide was prepared. (mm 08.21.2017) AUTOMATION SOFTWARE ENGINEER(S): DILAN Solis(ASCP) INITIAL CPT CODE(S): A; 03072 Professional services performed by [facility] at [address] , [place] [address] Technical services performed by [facility] at [address] [place] [address]., [address], [place] [address]. [facility] [address] [place] [address], [facility] [place] [address] [place] [address] PHONE: [phone] [facility] [address] [place] [address] CYTO-NONGYN REPORT PROCEDURE Name: LILLIE VALDES Room #: 204-P ADM IN M.R.#: [id number] Admission: 08/20/17 Date of : 32 Discharge: Report #: [id number] Path Case #: [id number] DIRECTOR: Edgar Mckeon M.D. * * * END OF REPORT * * *
--- NOTE | ~2017-08-20 | EKG ---
[address] [place] [address] ELECTROCARDIOGRAM REPORT Name: LILLIE VALDES Room #: 204-P ADM IN M.R.#: [id number] Admission: 08/20/17 Attend Phys: Jean-Claude Cosme MD Discharge: Date of : 31 Report #: [id number] THIS REPORT FOR: //name// [facility] ED Test Date: 2017-08-20 Test Time: 09:10:48 Pat Name: LILLIE VALDES Department: Room: 204 Gender: M [employer]: merritt : 1930 Requested By: Lydia Kumar Order Number: [id number] MD: Kurtis Tadeo Measurements Intervals [place] Rate: 92 P: 13 DE: 219 QRS: 3 QRSD: 107 T: 40 QT: 382 QTc: 473 Interpretive Statements Sinus rhythm Prolonged DE interval Anteroseptal infarct, age indeterminate Compared to ECG 08/07/2017 11:54:06 No significant change was found Electronically Signed On 08-21-2017 9:35:50 CDT by Kurtis Tadeo [email or web address] <ELECTRONICALLY SIGNED> By: Kurtis Tadeo MD, [facility] 08/21/17 0935 9 Kurtis Tadeo MD, [facility] /EPI
--- NOTE | ~2017-08-20 | HC ---
[facility] [place] [address] CONSULTATION Name: LILLIE VALDES Room #: 204-P ADM IN M.R.#: [id number] Admission: 08/20/17 Attend Phys: Jean-Claude Cosme MD Discharge: Date of : 31 Report #: [id number] THIS REPORT FOR: //name// CC: Jean-Claude Doe MD DATE OF SERVICE: 08/25/2017 HISTORY OF PRESENT ILLNESS: The patient is an 86-year-old male who has multiple medical problems. He has actually been hospitalized for a prolonged period of time since April last year. Reason for GI consultation is anemia with Hemoccult positive stool and possible melenic type stool. The patient has a long history of anemia and has been followed closely by Dr. Doe and Dr. Patel during these last few hospitalizations. In fact, he has received IV iron as well as consideration for EPO and even proceeding with a bone marrow biopsy, which is actually scheduled for Sunday. The patient's current hemoglobin is 8.7, this is after 1 unit of packed cells that was given yesterday when he had a drop from his hemoglobin 7.1 to 6.8. He has remained in the 6-8 range basically for several months. He states his last colonoscopy he believes was approximately 10 years ago and was negative. He does have constipation issues. He states he had gone 7 days before bowel movement and recently, the nurse was placing the suppository, which broke in half and irritated his anal canal. When he finally did have a bowel movement, he states there was a small amount of blood in this area. He had noticed at times at home prior to these hospitalizations a small amount of bright red blood at times with wiping. There is no family history of colon cancer. He denies any upper symptoms. No reflux, dysphagia. No nausea or vomiting. His weight has been stable. He is currently on 3 liters of nasal cannula oxygen. He has undergone a VATS procedure for recurrent pulmonary effusion as well as thoracentesis. His last few hospitalizations have been mostly for pulmonary issues. He states his appetite has been good. PAST MEDICAL HISTORY: Anemia, history of COPD, effusion, status post VATS procedure, status post thoracentesis. He is O2 dependent at this time, history of recurrent pneumonia, atrial fibrillation, hypertension, gastroesophageal reflux disease, left hip replacement, previous cholecystectomy. MEDICATIONS: On admission, 08/20/2017, Pacerone, Colace, MiraLax, Protonix 40 mg a day, Augmentin, Rapaflo, Atrovent, Cardizem, aspirin, ferrous sulfate. ALLERGIES: No known drug allergies. REVIEW OF SYSTEMS: As per HPI. FAMILY HISTORY: Negative for colon cancer. [address] [address] CONSULTATION Name: LILLIE VALDES Room #: 204-P [facility] IN M.R.#: [id number] Admission: 08/20/17 Attend Phys: Jean-Claude Cosme MD Discharge: Date of : 31 Report #: [id number] SOCIAL HISTORY: Quit smoking years ago. He reports occasional alcohol use. PHYSICAL EXAMINATION: VITAL SIGNS: Temperature is 98.0, pulse 72, blood pressure 131/74, respiratory rate is 18. He is on 3 liters of nasal cannula oxygen. He has been sat in the 90s, 95%-96%. GENERAL: He is alert and oriented x 3 in no acute distress. HEENT: Sclerae nonicteric. Oropharynx clear. NECK: Supple without lymphadenopathy. CARDIOVASCULAR: Regular rate and rhythm. CHEST: Coarse breath sounds bilaterally. ABDOMEN: Soft, nontender, nondistended, normoactive bowel sounds. EXTREMITIES: No cyanosis, clubbing or edema. LABORATORY DATA: Sodium 135, potassium 4.1, chloride 101, bicarbonate 28, BUN 18, creatinine is 0.8, AST 33, total bilirubin 0.3, alkaline phosphatase 113, ALT 77, albumin 1.5. WBC is 9.9, hemoglobin 8.7 after 1 unit of packed cells, platelet count 284. Stool is Hemoccult positive yesterday. ASSESSMENT AND PLAN: 1. Anemia. This is chronic. This may be multifactorial. He does have Hemoccult positive stool; however, there have been no signs of significant gastrointestinal bleeding. He is being followed by Dr. Doe with Hematology and is actually to undergo a bone marrow biopsy in the near future. EPO studies have been performed. He is not currently on aspirin. He remains on PPI therapy at this time. I explained to the patient I would prefer monitoring hemoglobin closely and not proceeding with endoscopy unless there are signs of significant gastrointestinal bleed. Due to his significant pulmonary history, he is on 3 liters. He is at high risk for undergoing sedation at this time. He understands and agrees. We will continue to monitor closely. Continue PPI therapy. 2. Constipation. Continue MiraLax, which he is on on a daily basis. Thank you for allowing me to participate in his care. <ELECTRONICALLY SIGNED> By: rPitesh Bolanos MD 08/26/17 1127 1109 1607 Pritesh Bolanos MD /nt
--- NOTE | ~2017-08-20 | HC ---
[facility] [place] [address] CONSULTATION Name: LILLIE VALDES Room #: 204-P ADM IN M.R.#: [id number] Admission: 08/20/17 Attend Phys: Jean-Claude Cosme MD Discharge: Date of : 31 Report #: [id number] THIS REPORT FOR: //name// CC: JEAN-CLAUDE Cosme DATE OF SERVICE: 08/21/2017 REFERRING PROVIDER: Jean-Claude Cosme MD CHIEF COMPLAINT: Shortness of breath, pneumonia, pleural effusion. HISTORY OF PRESENT ILLNESS: I was asked to see the patient this morning in consultation while hospitalized at [facility], known to me from prior admissions. History taken from discussion with daughter, Bree, discussion with Dr. Jean-Claude Cosme as well as the patient and review of records, is 86 with recurrent right lower lobe infiltrate, COPD, prior right mini thoracotomy for decortication of an exudative effusion as well as recurrent transudative left pleural effusion, has been in and out of [facility] in this hospital for management, started having some increasing shortness of breath over the past 2 days, not clear with aerosol treatments, noted to be hypoxemic at [facility] and was subsequently transferred here. The patient underwent further workup including chest radiograph revealing increased right lower lobe infiltrate and small left pleural effusion to moderate left pleural effusion, started on antibiotic therapy and admitted for further care. The patient is awake and alert this morning, but having a loose cough, unable to completely clear. Of note, the patient has had some difficulty with ongoing anemia and general debilitation that has not improved with recent IV iron therapy. ALLERGIES: None known. PAST MEDICAL HISTORY: 1. History of significant alcohol use and/or abuse. 2. COPD, severity not quantified. 3. Anemia of unclear etiology. 4. Hyperlipidemia. 5. History of prior total left hip arthroplasty. 6. Recurrent pneumonias. 7. Atrial fibrillation. 8. Hypertension. 9. Prior cholecystectomy. SOCIAL HISTORY: The patient was a smoker and significant alcohol consumer up until the time of admission in April. [facility] [address] [place] [address] CONSULTATION Name: LILLIE VALDES Room #: 204-P ADM IN M.R.#: [id number] Admission: 08/20/17 Attend Phys: Jean-Claude Cosme MD Discharge: Date of : 31 Report #: [id number] FAMILY HISTORY: Significant for malignancy. REVIEW OF SYSTEMS: CONSTITUTIONAL: No fever, chills or sweats. ENT: No upper respiratory congestion, rhinorrhea or dysphagia. CARDIOVASCULAR: No chest pains or palpitations. GASTROINTESTINAL: No nausea, vomiting, reflux complaints. GENITOURINARY: No dysuria, no frequency or hematuria. INTEGUMENT: Denies any new rash. MUSCULOSKELETAL: Some ongoing lower extremity edema. PHYSICAL EXAMINATION: VITAL SIGNS: Afebrile, pulse 76, respiratory rate 20, blood pressure 127/66, oxygen saturation 98% on 4 liters. GENERAL: This is an elderly male, who does not appear in any distress. ENT: Clear oropharynx. No thrush. No erythema. NECK: Supple, no lymphadenopathy. LUNGS: Coarse rhonchi heard throughout, predominantly on the right with diminished left basilar breath sounds. CARDIOVASCULAR: Heart was regular. No murmurs noted. ABDOMEN: Soft, nontender, no masses. EXTREMITIES: With 1+ edema. INTEGUMENT: There is no rash. LABORATORY DATA: White blood cell count 9000, hemoglobin 7, hematocrit 22, platelet count 270. Chemistry profile within normal limits except for glucose 153, AST and ALT mildly elevated, proBNP 994, albumin was 1.7. Arterial blood gas initially on 3 liters revealed pH 7.48, pCO2 of 42, pO2 of 46. Lactate was 1. IMPRESSION: 1. Persistent right lower lobe infiltrates with difficulty clearing secretions, has undergone bronchoscopy before for relief of mucus plugging, would favor doing that again in addition to escalate airway clearance. The patient has been tapered off steroids that maybe part of his difficulty with recurrent symptoms, may benefit from long-term systemic steroid therapy. 2. Recurrent left pleural effusion, likely related to malnourishment. The patient has undergone a right thoracotomy with pleural biopsy as well as a prior bronchoscopy and left thoracentesis with no evidence of malignancies. This may be a recurrent problem, may benefit from the placement of a PleurX catheter for ongoing management to prevent recurrent admissions and allow him to continue with rehabilitative care. 3. Pneumonia per Infectious Disease Service. 4. Ongoing anemia. 5. General debilitation. [address] [address] CONSULTATION Name: LILLIE VALDES Room #: 204-P ADM IN M.R.#: [id number] Admission: 08/20/17 Attend Phys: Jean-Claude Cosme MD Discharge: Date of : 31 Report #: [id number] PLAN: As outlined above. <ELECTRONICALLY SIGNED> By: Ovidio Ryan MD 08/21/17 1155 [id number] Ovidio Ryan MD /nt
--- NOTE | ~2017-08-20 | P ---
[facility] [place] [address] PROCEDURE REPORT Name: LILLIE VALDES Room #: 204-P [facility] IN M.R.#: [id number] Admission: 08/20/17 Attend Phys: Jean-Claude Cosme MD Discharge: Date of : 31 Report #: [id number] THIS REPORT FOR: //name// CC: JEAN-CLAUDE Cosme DATE OF SERVICE: 08/21/2017 PROCEDURE: Fiberoptic bronchoscopy with bronchial washings of extensive mucous plugs bilaterally. INDICATION: Mucous plugging and respiratory failure. PROCEDURE NOTATION: After discussing risks, benefits of planned procedure with the patient, he desired to proceed. After obtaining informed consent, he was brought to [employer] where he was placed on continuous cardiopulmonary monitoring and supplemental oxygen. He was then given 4% lidocaine nebulized to anesthetize the upper respiratory tract. Once accomplished, she received conscious sedation. A total of 2 mg of Versed were titrated during the procedure to provide adequate sedation. Once accomplished, bronchoscope was passed through an oral bite block into the vocal cords visualized. Lidocaine 1% was instilled in the vocal cords for topical anesthesia. Bronchoscope was then passed in the trachea, 1% lidocaine was instilled in the tracheobronchial tree to provide topical anesthesia. Once complete, airways were surveyed. FINDINGS: Mainstem, lobar, segmental and subsegmental bronchi were all explored, which were patent after clearance of extensive mucous plugging that was noted throughout. Mucous plugs were white and/or clear. The right was much worse than the left. This was diffuse process. This was purged and aspirated using 20 mL aliquots of saline. No endobronchial disease noted, otherwise. Airways were patent at the end of procedure. The patient tolerated well. No noted complications. IMPRESSION: Diffuse mucus plugging and lower lobe infiltrates. Recommend await cultures. Increase airway clearance. Consider adding Mucomyst and chest percussion. By: [id number] Ovidio Ryan MD /nt
--- NOTE | ~2017-08-20 | HC ---
[facility] [place] [address] CONSULTATION Name: LILLIE VALDES Room #: 204-P ADM IN M.R.#: [id number] Admission: 08/20/17 Attend Phys: Jean-Claude Cosme MD Discharge: Date of : 31 Report #: [id number] THIS REPORT FOR: //name// CC: Jean-Claude Cosme DATE OF SERVICE: 08/20/2017 REASON FOR CONSULTATION: I was asked to evaluate concerning healthcare-associated pneumonia. HISTORY OF PRESENT ILLNESS: The patient is an 86-year-old recently hospitalized at [facility] with pneumonia on 08/07/2017. He has known bronchiectasis and mucous plugging. He had a bronchoscopy performed which revealed normal ary. He improved after this and was discharged to [facility] for further rehabilitation. He was discharged on Augmentin. He finished this only to return now with increased shortness of breath, chest discomfort and weakness. No fever, chills or sweats. Chest x-ray shows increased basilar infiltrates, mostly on the right. Previously, he has had an echocardiogram, CT scan of the chest, video swallow, all of which lean toward mucous plugging and bronchiectasis. He does have atrial fibrillation. No report of congestive heart failure, although he did undergo a left thoracentesis during his last hospital stay. No studies were performed on this fluid. He is currently on 5 liters of oxygen per nasal cannula. He describes no chest pain. He has loose cough with poor clearance of secretions. No nausea, vomiting or diarrhea. No dysuria or frequency. He has a sacral decubitus. REVIEW OF SYSTEMS: Otherwise, unremarkable. ALLERGIES: None known. MEDICATIONS: As noted on his MAR, having been given vancomycin, ciprofloxacin and Levaquin from the Emergency Room. PAST MEDICAL HISTORY: Pneumonia, atrial fibrillation, hypertension, urinary retention, red blood cell aplasia, gastroesophageal reflux, left total hip arthroplasty, cholecystectomy. FAMILY HISTORY: Cancer. SOCIAL HISTORY: Past smoker, no significant alcohol intake at this time. PHYSICAL EXAMINATION: GENERAL: He is alert and cooperative, in no acute distress. He is up in his bed, eating lunch. HEENT: Unremarkable. [facility] [address] [place] [address] CONSULTATION Name: LILLIE VALDES Room #: 204-P [facility] IN M.R.#: [id number] Admission: 08/20/17 Attend Phys: Jean-Claude Cosme MD Discharge: Date of : 31 Report #: [id number] NECK: Supple. LUNGS: Coarse breath sounds bilaterally with consolidation heard in the right base posteriorly. No rub. HEART: Regular without murmur. ABDOMEN: Soft, nontender, no hepatosplenomegaly or mass. EXTREMITIES: Unremarkable. Sacral wound with a small defect. He had larger area of erythema surrounding this tissue. No abscess identified. LABORATORY STUDIES: Chest x-ray, basilar infiltrates, right greater than left. Sodium 137, potassium 3.5, bicarbonate 33, creatinine 0.8. AST 40, ALT 79, alkaline phosphatase 131, bilirubin 0.5. Hemoglobin 7.4, WBC 9.4, 77% segs, 12% lymphs. Blood culture is pending. IMPRESSION: An 86-year-old with healthcare-associated pneumonia, right lower lobe greater than left in the setting of bronchiectasis. I am suspicious also of a component of aspiration. He definitely has poor clearance of secretions. He has overall debility. He has malnutrition. PLAN: Recommend continuing his antibiotic coverage with vancomycin and Zosyn. We will await sputum culture. He may need more aggressive pulmonary toilet. Pulmonary medicine will be evaluating. <ELECTRONICALLY SIGNED> By: Charles Jose MD 08/21/17 [id number] Charles Jose MD /nt
--- NOTE | ~2017-08-20 | HC ---
[place] [address] CONSULTATION Name: LILLIE VALDES Room #: 204-P ADM IN M.R.#: [id number] Admission: 08/20/17 Attend Phys: Jean-Claude Cosme MD Discharge: Date of : 31 Report #: [id number] THIS REPORT FOR: //name// CC: Charles Ryan MD REQUESTING PHYSICIAN: Ovidio Ryan MD REASON FOR CONSULTATION: Anemia. HISTORY OF PRESENT ILLNESS: The patient is an 86-year-old male, who I first met, maybe back in July as an outpatient. At that time, he had a history of anemia, having been in and out of the hospital for the last 3-4 months. It was in May, his hemoglobin was 10.1. Since then, it has been more than 7-8 range and going down to 6.8 recently. The patient has been in the hospital for hospital and community-acquired pneumonias, mucus plugging and bronchiectasis. He was admitted for similar episode today. The patient, at this time, is in the PCU, his was admitted about 4 days ago. He is admitted for a repeat respiratory infection and exacerbation. Early, he was found to be iron deficient. He received 1000 mg of iron dextran about 08/09/2017, has had no improvement in his anemia since that time. His B12 and folate have been repleted, his absolute retic count, I believe, was around 77. His recent creatinine is under 1. Albumin is 1.8. Liver function is normal. Total bilirubin normal, transaminases not elevated. This all suggests that this may be a production problem. Note that erythropoietin level is pending. He has also had scans that have not revealed any masses or adenopathy. PAST MEDICAL HISTORY: Notable for a number of things, including the iron deficient anemia, a recent left pleural effusion with a PleurX catheter placed several days ago, cytology has been negative; hospital-acquired pneumonia with bronchiectasis and mucus plugging; sacral decubiti; atrial fibrillation; urinary retention; hyperlipidemia; and COPD. 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. MEDICATIONS: At this time in the hospital currently include furosemide 40 daily, diltiazem 180 daily, amiodarone 400 daily, pantoprazole 40 b.i.d., insulin on a sliding scale, vancomycin 750 mg q.12, acetylcysteine 800 mg respiratory therapy t.i.d., methylprednisolone 62.5 mg IV q.6, ipratropium and albuterol respiratory therapy q.4 inhalation, IV fluids, piperacillin, Zosyn 3.375 g IV q.8. [address] [address] CONSULTATION Name: LILLIE VALDES Room #: 204-P [facility] IN M.R.#: [id number] Admission: 08/20/17 Attend Phys: Jean-Claude Cosme MD Discharge: Date of : 31 Report #: [id number] RADIOLOGIC STUDIES: . He had a CTA angiogram study on 08/09 that showed infiltrates and the moderate right, larger on the left; no pulmonary masses or significant lymphadenopathy, large stool in the hepatic flexure, bones unremarkable. PHYSICAL EXAMINATION: VITAL SIGNS: Height is 5 feet 8, which is 172.7 cm; weight 122.5 pounds, which is 55.57 kilograms. Blood pressure is 137/81, respiratory rate is 19, pulse 88, afebrile at 98.9. NEUROLOGIC: The patient's face is symmetric, is moving extremities. Speech pattern is normal. LUNGS: Frequent rhonchi and soft rales, no wheezes. HEART: Appears to be regular rate. LYMPHATIC: No enlarged lymph nodes in the supraclavicular, cervical, axillary or inguinal region. ABDOMEN: Slightly obese. No masses, nontender. EXTREMITIES: Without clubbing or cyanosis. ASSESSMENT AND PLAN: 1. Anemia, multifactorial, had been iron deficient, status post 1000 mg iron dextran on 08/09, still hypoproliferative. Discussed with the patient, and also asked Dr. Ryan, will arrange or consult Interventional Radiology for conscious sedation-based bone marrow biopsy with flow cytometry and cytogenetics to see if the patient has a bone marrow defect such as myelodysplastic syndrome or infiltrative process. Note the EPO level is pending. We will also transfuse 1 unit, today his hemoglobin is 6.8. 2. Hospital-acquired pneumonia. Continue his vancomycin and Zosyn. 3. Bronchiectasis, had recent bronchoscopy. 4. Chronic obstructive pulmonary disease, has multiple inhalers. 5. Left pleural effusion. Cytology was negative, PleurX catheter in place for drainage. 6. Sacral decubital. We will defer to wound care and nursing. 7. Atrial fibrillation, cardiac issues, hypertension. Defer amiodarone and Lasix to others. 8. Urinary retention. Defer to others. 9. Hyperlipidemia. Statins. 10. Weakness. Rehab services. 11. Vitamin D deficiency. We will continue vitamin D replacement. We will follow with you. <ELECTRONICALLY SIGNED> By: Lobo Doe MD 08/26/17 1401 [id number] Lobo Doe MD /nt
[2017-08-20 09:30] LABS: BE(vivo) 6.7 mmol/L (-2 to +3)
[2017-08-20 09:32] LABS: HCO3 30.7 mmol/L (22.0-26.0); PCO2 41.9 mmHg (35.0-45.0); pH 7.483 (7.360-7.450)
[2017-08-20 09:36] LABS: ABSOLUTE NEUTROPHILS 7.3 thou/uL (1.4-8.2); BASOPHILS 0.7 % (0.0-2.0); EOSINOPHILS 0.6 % (0.0-3.0); HEMOGLOBIN 7.4 gm/dL (14.0-18.0); LYMPHOCYTES 12.1 % (24.0-44.0); MCH 30.8 pg (26.0-34.0); MCHC 33.6 g/dL (28.0-37.0); MCV 91.6 fL (80.0-100.0); MONOCYTES 8.9 % (1.0-8.0); PLATELET COUNT 270 thou/uL (150-400); POLYS 77.7 % (36.0-66.0); RDW 21.4 % (10.5-14.5); WBC 9.4 thou/uL (4.0-11.0)
[2017-08-20 09:45] LABS: CALCIUM 8.3 mg/dL (8.5-10.1); CREATININE 0.8 mg/dL (0.7-1.3); POTASSIUM 3.5 mmol/L (3.5-5.1)
[2017-08-20 09:54] LABS: ALBUMIN 1.7 g/dL (3.4-5.0); MAGNESIUM 1.9 mg/dL (1.8-2.4); TOTAL BILIRUBIN 0.5 mg/dL (<0.1-1.0); TOTAL PROTEIN 5.3 g/dL (6.4-8.2); TROPONIN-I 0.05 ng/mL (<0.06)
[2017-08-21 02:20] LABS: URINE BILIRUBIN NEGATIVE (Negative); URINE BLOOD NEGATIVE (Negative); URINE CLARITY SL CLOUDY; URINE COLOR YELLOW; URINE GLUCOSE-RANDOM* TRACE (Negative); URINE KETONES NEGATIVE (Negative); URINE LEUKOCYTES 2+ (Negative); URINE NITRITE NEGATIVE (Negative); URINE PROTEIN (DIPSTICK) TRACE (Negative); URINE SPECIFIC GRAVITY 1.025 (1.005-1.035); URINE UROBILINOGEN 0.2 E.U./dl (0.2-1.0)
[2017-08-21 02:29] LABS: BACTERIA 1-9 Few /HPF (None Seen); CRYSTALS None Seen /LPF (None Seen); FINE GRANULAR CASTS 0-3 Few /LPF (None Seen); MUCUS 0-3 Light strn/LPF (None Seen); SQUAMOUS 0-3 Few /LPF (0-3); URINE RBC None Seen /HPF (0-2); URINE WBC 0-5 Rare /HPF (0-5)
[2017-08-21 04:30] VITALS: BP 122/76
[2017-08-21 08:01] VITALS: BP 127/66
[2017-08-21 11:12] VITALS: BP 135/57
[2017-08-21 16:12] VITALS: BP 138/73
[2017-08-21 19:57] VITALS: BP 126/67
[2017-08-21 23:21] VITALS: BP 131/47
[2017-08-22 05:00] VITALS: BP 119/56
[2017-08-22 08:00] VITALS: BP 136/70
[2017-08-22 12:04] VITALS: BP 128/66
[2017-08-22 16:30] VITALS: BP 139/79
[2017-08-22 19:27] VITALS: BP 129/73
[2017-08-23 05:42] VITALS: BP 132/77
[2017-08-23 07:41] VITALS: BP 131/76
[2017-08-23 11:11] LABS: ABSOLUTE RETIC COUNT 0.077 10^6/uL; HEMATOCRIT 21.4 % (42.0-52.0); HEMOGLOBIN 7.1 gm/dL (14.0-18.0); MCH 30.4 pg (26.0-34.0); MCHC 33.3 g/dL (28.0-37.0); MCV 91.3 fL (80.0-100.0); OBSERVED RETIC COUNT 3.28 % (0.6-2.6); RBC 2.35 mil/uL (4.50-6.00); RDW 21.7 % (10.5-14.5); WBC 10.2 thou/uL (4.0-11.0)
[2017-08-23 11:53] VITALS: BP 123/74
[2017-08-23 12:52] LABS: TSH 2.306 uIU/mL (0.358-3.740)
[2017-08-23 17:00] VITALS: BP 146/66
[2017-08-23 19:21] VITALS: BP 144/78
[2017-08-23 23:47] VITALS: BP 141/80
[2017-08-24 02:06] LABS: GLYCOHEMOGLOBIN (HGB A1C) 5.6 % (4.8-5.6)
[2017-08-24 03:13] LABS: URINE BILIRUBIN NEGATIVE (Negative); URINE BLOOD NEGATIVE (Negative); URINE CLARITY CLEAR; URINE COLOR YELLOW; URINE GLUCOSE-RANDOM* 1+ (Negative); URINE KETONES TRACE (Negative); URINE LEUKOCYTES NEGATIVE (Negative); URINE NITRITE NEGATIVE (Negative); URINE PROTEIN (DIPSTICK) NEGATIVE (Negative); URINE SPECIFIC GRAVITY 1.025 (1.005-1.035); URINE UROBILINOGEN 0.2 E.U./dl (0.2-1.0)
[2017-08-24 03:53] LABS: HEMOGLOBIN 6.8 gm/dL (14.0-18.0); MCV 91.1 fL (80.0-100.0); WBC 9.9 thou/uL (4.0-11.0)
[2017-08-24 03:54] LABS: HEMATOCRIT 20.2 % (42.0-52.0); MCH 30.8 pg (26.0-34.0); MCHC 33.8 g/dL (28.0-37.0); RBC 2.21 mil/uL (4.50-6.00); RDW 21.7 % (10.5-14.5)
[2017-08-24 04:08] VITALS: BP 133/76
[2017-08-24 04:08] LABS: ALBUMIN 1.5 g/dL (3.4-5.0); CREATININE 0.8 mg/dL (0.7-1.3); MAGNESIUM 1.9 mg/dL (1.8-2.4); POTASSIUM 4.1 mmol/L (3.5-5.1); TOTAL BILIRUBIN 0.3 mg/dL (<0.1-1.0); TOTAL PROTEIN 4.8 g/dL (6.4-8.2)
[2017-08-24 07:19] VITALS: BP 137/81
[2017-08-24 08:59] LABS: PROTIME 10.2 Seconds (9.3-11.4)
[2017-08-24 11:17] VITALS: BP 149/86
[2017-08-24 13:48] VITALS: BP 140/62; BP 146/83
[2017-08-24 15:46] VITALS: BP 140/71
[2017-08-24 17:07] LABS: HEMATOCRIT 25.7 % (42.0-52.0); HEMOGLOBIN 8.6 gm/dL (14.0-18.0)
[2017-08-24 21:05] VITALS: BP 125/67
[2017-08-24 21:19] LABS: HEMATOCRIT 25.6 % (42.0-52.0); HEMOGLOBIN 8.7 gm/dL (14.0-18.0)
[2017-08-25 04:57] VITALS: BP 136/77
[2017-08-25 08:00] VITALS: BP 131/74
[2017-08-25 12:00] VITALS: BP 147/78
[2017-08-25 16:00] VITALS: BP 135/76
[2017-08-25 19:25] VITALS: BP 132/74
[2017-08-26 04:00] LABS: CALCIUM 8.1 mg/dL (8.5-10.1); CREATININE 0.9 mg/dL (0.7-1.3); POTASSIUM 3.7 mmol/L (3.5-5.1)
[2017-08-26 04:13] VITALS: BP 128/71
[2017-08-26 04:33] LABS: HEMATOCRIT 25.8 % (42.0-52.0); HEMOGLOBIN 8.6 gm/dL (14.0-18.0); MCH 30.1 pg (26.0-34.0); MCHC 33.5 g/dL (28.0-37.0); MCV 89.9 fL (80.0-100.0); RBC 2.87 mil/uL (4.50-6.00); RDW 21.3 % (10.5-14.5); WBC 13.8 thou/uL (4.0-11.0)
[2017-08-26 07:48] VITALS: BP 144/85
[2017-08-26 11:54] VITALS: BP 139/78
[2017-08-26 15:30] VITALS: BP 135/77
[2017-08-26 19:50] VITALS: BP 141/74
[2017-08-26 23:45] VITALS: BP 138/66
[2017-08-27 03:36] LABS: HEMATOCRIT 26.7 % (42.0-52.0); HEMOGLOBIN 8.9 gm/dL (14.0-18.0); MCH 30.2 pg (26.0-34.0); MCHC 33.3 g/dL (28.0-37.0); MCV 90.6 fL (80.0-100.0); RBC 2.94 mil/uL (4.50-6.00); RDW 21.3 % (10.5-14.5)
[2017-08-27 07:30] VITALS: BP 141/74
[2017-08-27 11:23] VITALS: BP 136/71
[2017-08-27 20:45] VITALS: BP 138/85
[2017-08-28 00:18] VITALS: BP 147/81
[2017-08-28 04:55] VITALS: BP 147/82
[2017-08-28 07:40] VITALS: BP 144/71
[2017-08-28 10:42] VITALS: BP 133/65
[2017-08-28 14:55] VITALS: BP 127/59
[2017-08-28 19:32] VITALS: BP 144/72
[2017-08-29 04:22] VITALS: BP 137/65
[2017-08-29 04:24] LABS: ABSOLUTE NEUTROPHILS 15.3 thou/uL (1.4-8.2); EOSINOPHILS 0.1 % (0.0-3.0); HEMATOCRIT 25.2 % (42.0-52.0); HEMOGLOBIN 8.5 gm/dL (14.0-18.0); LYMPHOCYTES 2.3 % (24.0-44.0); MCH 30.7 pg (26.0-34.0); MCHC 33.7 g/dL (28.0-37.0); MCV 91.2 fL (80.0-100.0); MONOCYTES 2.2 % (1.0-8.0); PLATELET COUNT 213 thou/uL (150-400); POLYS 95.4 % (36.0-66.0); RBC 2.76 mil/uL (4.50-6.00); RDW 21.1 % (10.5-14.5)
[2017-08-29] MEDS ORDERED: PROCRIT20000 UNIT SUBQ (07:41)
[2017-08-29 07:47] VITALS: BP 146/68
[2017-08-29 12:05] VITALS: BP 153/71
== END 2017-08-29 15:45 | DRG 166 ==
LOC: ER 08:58 → EROBS 10:07 → 2N 10:07 → 4W 10:50 → 2N 12:25
PROVIDERS: Family Medicine; Hospitalist; Internal Medicine Pulmonary Disease; Nurse Practitioner Family; Radiology Vascular & Interventional Radiology; Specialist
PROC: 0B9F8ZX Drainage of Right Lower Lung Lobe, Via Natural or Artificial Opening Endoscopic, Diagnostic (ICD-10-PCS; principal; 2017-08-21)
PROC: 0BD68ZX Extraction of Right Lower Lobe Bronchus, Via Natural or Artificial Opening Endoscopic, Diagnostic (ICD-10-PCS; principal; 2017-08-21)
PROC: 0W9B30Z Drainage of Left Pleural Cavity with Drainage Device, Percutaneous Approach (ICD-10-PCS; 2017-08-23)
PROC: 07DR3ZX Extraction of Iliac Bone Marrow, Percutaneous Approach, Diagnostic (ICD-10-PCS; 2017-08-24)
PROC: 30233N1 Transfusion of Nonautologous Red Blood Cells into Peripheral Vein, Percutaneous Approach (ICD-10-PCS; 2017-08-24)
DX: J69.0 Pneumonitis due to inhalation of food and vomit (principal); E43 Unspecified severe protein-calorie malnutrition; J44.0 Chronic obstructive pulmonary disease with (acute) lower respiratory infection; J90 Pleural effusion, not elsewhere classified; Z68.1 Body mass index [BMI] 19.9 or less, adult; I48.91 Unspecified atrial fibrillation; I10 Essential (primary) hypertension; K21.9 Gastro-esophageal reflux disease without esophagitis; D46.9 Myelodysplastic syndrome, unspecified; D50.9 Iron deficiency anemia, unspecified; Y95 Nosocomial condition; E78.5 Hyperlipidemia, unspecified; L89.159 Pressure ulcer of sacral region, unspecified stage; R33.9 Retention of urine, unspecified; E55.9 Vitamin D deficiency, unspecified; K59.00 Constipation, unspecified; Z96.642 Presence of left artificial hip joint; Z90.49 Acquired absence of other specified parts of digestive tract; Z87.891 Personal history of nicotine dependence; Z79.82 Long term (current) use of aspirin; Z79.899 Other long term (current) drug therapy; Z80.52 Family history of malignant neoplasm of bladder
CPT/HCPCS: 10081